=== PATIENT | male | born 1950 | race Caucasian/White ===

== ENCOUNTER 2022-03-24 10:19 | Inpatient (IN) | payer MEDICARE, OTHER, SELFPAY ==
[2022-03-24] VITALS (11 sets, daily range): BP systolic 86–132; BP diastolic 44–89; PULSE 64–77; RESP 16–20; TEMP 36.8–37.7; O2SAT 92–96; BMI 34.3; BMI 35.9
--- NOTE | 2022-03-24 11:22 | CRLHL7_ITS ---
For Patients: As a result of the Cures Act, medical imaging exams and procedure reports are released immediately into your electronic medical record. You may view this report before your referring provider. If you have questions, please contact your health care provider. INDICATION: FEVER, MULTIPLE MYELOMA TECHNIQUE: Chest 1 view COMPARISON: CT-PET 02/10/2022 FINDINGS: Chronic dependent vascular crowding related to bullous emphysema. No dense infiltrate. No pleural effusion. Mediastinum similar. Postop changes well shoulders. IMPRESSION: Emphysematous changes. No dense infiltrate. Dictated by Ajay Motta MD @ 03/24/2022 12:33:15 PM (Electronically Signed)
--- NOTE | 2022-03-24 11:29 | ED.GENADULT ---
HPI - General Adult General Time Seen by Provider: 11:29 Date Seen: 03/24/22 Chief complaint: Weakness Stated complaint: Cancer Patient, fever and pain Time Seen by Provider: 03/24/22 10:45 Source: patient, family ( is present), RN notes reviewed and old records reviewed Mode of arrival: ambulatory Limitations: no limitations History of Present Illness HPI narrative: Patient is a 72-year-old male accompanied by his to the ER for concern of a fever. 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 He follows with male Oncology. The plan is to have him on chemotherapy with 3-4 cycles over 3-4 months and subsequent auto stem cell transplantation at [place]. He is getting Velcade, Revlimid, dexamethasone. He has had 2 treatments so far, last 1 3 days ago. He started having fevers yesterday, highest was 102.8? F. His has been treating with Tylenol. He is more weak today. There has been no trauma, denies any cough or cold symptoms, denies any shortness of breath. His main complaint is right arm pain without any swelling, no trauma. The whole arm does hurt him. He is known to have arthritis in the hand and has had an injection in there sometime ago but the pain is beyond that joint in it hurts in the whole extremity. Denies any chest pain. He denies being short of breath but his feels he is more winded. 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 His appetite is maybe more diminished than usual but no nausea or vomiting, no GI or symptoms with his current fever. He does not have any chronic IV access. Onset (ago): day(s) Relieving factors: other (Tylenol has helped with fever control) Related Data Home Medications Medication Instructions Recorded Confirmed albuterol 90 mcg/actuation aerosol 1-2 spray INHALATION PRN 03/07/22 03/07/22 inhaler alirocumab 150 mg/mL subcutaneous 150 mg SUBCUT .Every 14 Days 03/07/22 03/24/22 pen injector cholecalciferol (vitamin D3) 100 100 mcg PO QDAY 03/07/22 03/07/22 mcg (4,000 unit) tablet hydrochlorothiazide 25 mg tablet 25 mg PO QAM 03/07/22 03/24/22 lisinopril 10 mg tablet 10 mg PO QDAY tab 03/07/22 03/24/22 potassium chloride 20 mEq 20 meq PO QDAY 03/07/22 03/07/22 tablet,extended release tiotropium bromide 18 mcg capsule 18 INHALATION DAILY 03/07/22 03/07/22 with inhalation device acetaminophen 500 mg tablet 1,000 mg PO BID PRN tab 03/08/22 03/24/22 (Tylenol Extra Strength) aspirin 81 mg tablet,delayed 81 mg PO 3XW tab 03/08/22 03/08/22 release (Adult Low Dose Aspirin) Previous Rx's Medication Instructions Recorded acyclovir 400 mg tablet 400 mg PO BID 30 Days #60 tab 03/08/22 aspirin 81 mg tablet,delayed 81 mg PO QDAY #90 tab 03/08/22 release (Enteric Coated Aspirin) calcium carbonate 600 mg-vitamin 1 cap PO BIDWMEAL #240 cap 03/08/22 D3 12.5 mcg (500 unit) capsule (Calcium 600 with Vitamin D3) dexamethasone 4 mg tablet 40 mg PO .COMPLEX #40 tab 03/08/22 famotidine 20 mg tablet (Pepcid) 20 mg PO BID 42 Days #84 tab 03/08/22 lenalidomide 25 mg capsule 25 mg PO QDAY 14 Days #14 cap 03/08/22 sulfamethoxazole 800 1 tab PO 3XW #30 tab 03/08/22 mg-trimethoprim 160 mg tablet (Bactrim DS) Allergies Allergy/AdvReac Type Severity Reaction Status Date / Time Clopidogrel Allergy Intermediate Hives Uncoded 03/08/22 09:16 Ezetimibe Allergy Unknown Unknown Uncoded 03/08/22 09:16 Atorvastatin AdvReac Mild Muscle Uncoded 03/08/22 09:16 aches Simvastatin AdvReac Mild muscle Uncoded 03/08/22 09:16 weakness Gemfibrozil AdvReac Unknown Unknown Uncoded 03/08/22 09:16 Rosuvastatin AdvReac Unknown Unknown Uncoded 03/08/22 09:16 Review of Systems Status of ROS: Reports: 10 or more systems reviewed and unremarkable except as noted in History and below [facility] Social History Smoking Status: Unknown if ever smoked Do you use any of these nicotine containing products: None Second hand tobacco smoke exposure: No How often do you have a drink containing alcohol: never AUDIT-C Alcohol total score: 0 Non-prescribed substance use: denies use service: No Exam Const: Vital Signs, click to edit/add: Vital Signs - 24 hr 03/24/22 10:51 03/24/22 12:53 03/24/22 13:00 Temperature 98.3 F Pulse Rate [Right Pulse Oximeter] 72 64 76 Respiratory Rate 18 16 16 Blood Pressure [Le ft Upper Arm] 90/53 L 87/44 L 116/69 Pulse Oximetry 92 94 95 03/24/22 14:00 03/24/22 14:30 03/24/22 15:00 Temperature Pulse Rate [Right Pulse Oximeter] 69 73 74 Respiratory Rate 16 16 16 Blood Pressure [Le ft Upper Arm] 131/89 86/76 L 116/87 Pulse Oximetry 96 94 96 Documenting provider has reviewed patient's vital signs: yes (Last blood pressure on March 08 was in the systolic range of 140) Common normals: no apparent distress, oriented x3, healthy appearing, alert and well nourished General appearance: cooperative, comfortable and well kempt Nutritional appearance: obese HENMT: Common normals: normocephalic, head/scalp atraumatic, hearing grossly normal bilaterally, external ears normal and oropharynx normal (But dry mucosa) Head and scalp: normocephalic and atraumatic External ear: external ears normal Eye: Common normals: PERRL, EOMs intact bilaterally, conjunctivae normal and no scleral icterus Conjunctiva: conjunctiva(e) normal Pupil: PERRL Neck & C-Spine: Common normals: full ROM, no lymphadenopathy, supple, no meningeal signs, no JVD and thyroid normal Thyroid: thyroid normal Chest: Common normals: inspection of chest normal and palpation of chest normal Resp: Common normals: normal respiratory effort, no retractions, no use of accessory muscles and clear to auscultation bilaterally Effort & inspection: able to speak in complete sentences Auscultation: clear to auscultation bilaterally Cardio: Common normals: no JVD, regular rate, regular rhythm, S1 normal heart sound, S2 normal heart sound, no gallops, no clicks and no murmurs Rate: regular rate Rhythm: regular rhythm Heart sounds: S1 normal and S2 normal GI: Common normals: Normal to inspection, nondistended, normoactive bowel sounds present, soft to palpation, non-tender, no hepatosplenomegaly and no masses Palpation: soft and no hepatosplenomegaly Other: Can see the 2 sites where he has had his injection of his chemotherapy. The 1st 1 is pink but not tender and not warm. The 1 on the left side is reportedly his new or site and has some discoloration of the abdominal wall with some pinkish in yellowish change but again not tender in neither site is warm. He states that they told him that this would be a normal reaction. Extremity: Common normals: normal to inspection, full ROM, normal capillary refill, no joint enlargement, no clubbing, cyanosis or edema, no calf tenderness and no pedal edema Other: Does have full range of motion of his right arm, do not note any swelling. Neuro: Common normals: oriented x3 Sensorium/orientation: alert Meningeal signs: no meningeal signs Psych: Appearance: well kempt Course Course Hospital Course: This is afebrile cancer patient an infectious etiology is 1st and foremost a concern. His blood pressure is lower at 90/40 range and sepsis needs to be considered here. I have ordered 1 L of normal saline and the full complement of blood work and evaluation for febrile chemo patient. He is not been neutropenic looking at his most recent labs but will update his CBC today. Obviously get COVID/influenza/RSV testing. We will do a portable chest x-ray. I will obtain an ultrasound of his right upper extremity to rule out development of a DVT. Other considerations for the right arm pain would be atypical presentation of myocardial infarction. Will have an EKG and troponin to obtain. This would not explain the fever but could be concomitant burden of disease with stress to the cardiac system from infection. Reevaluation(s) Reevaluation #1: The patient had told nursing staff that if she needed hospitalization he would like to be transferred her [place]. I did contact [facility] at 1:41 p.m. and they were on divert for med surge beds, Oncology and Hematology beds. The report to me that they do not have capacity for him. I have talked to the patient about this. I do believe he is early sepsis and have subsequently ordered vancomycin. We will get the vancomycin going and order cefepime after that. After 2 L of IV fluids with normal saline I am happy to report that his blood pressure was 116 systolic when I was in with him. I have subsequently ordered another 500 mL normal saline and we will re-evaluate at that point. I calculate that he needs probably about 2400 mL of fluid. He is hungry and they are okay if they need to stay here. We are still awaiting his urinalysis results as it had just recently been sent to the lab. I did subsequently talk to our hospitalist shortly after 3:00 p.m., he is down here to accept admission of the patient. Time: 13:41 Vital Signs Vital signs: Initial Vital Signs Temperature 98.3 F 03/24/22 10:51 Temperature Source Temporal Artery Scan 03/24/22 10:51 Pulse Rate 72 03/24/22 10:51 Respiratory Rate 18 03/24/22 10:51 Blood Pressure 90/53 L 03/24/22 10:51 Blood Pressure Mean 65 03/24/22 10:51 Blood Pressure Position Sitting 03/24/22 10:51 Pulse Oximetry 92 03/24/22 10:51 Oxygen Delivery Method 03/24/22 10:51 Vital Signs Temperature 98.3 F 03/24/22 10:51 Pulse Rate 72 03/24/22 10:51 Respiratory Rate 18 03/24/22 10:51 Blood Pressure 90/53 L 03/24/22 10:51 Pulse Oximetry 92 03/24/22 10:51 Temperature 98.3 F 03/24/22 10:51 Pulse Rate 74 03/24/22 15:00 Respiratory Rate 16 03/24/22 15:00 Blood Pressure 116/87 03/24/22 15:00 Pulse Oximetry 96 03/24/22 15:00 Medical Decision Making Lab Data Lab results reviewed: Yes I reviewed the patient's lab results Labs: Lab Results 03/24/22 03/24/22 03/24/22 Range/Units 11:23 11:40 11:40 WBC 4.48 L (4.50-11.00) K/uL RBC 4.84 (4.30-5.90) m/uL Hgb 15.3 (13.5-17.5) gm/dL Hct 46.6 (37.0-53.0) % MCV 96 (80-100) fL MCH 32 (26-34) pg MCHC 33 (32-36) gm/dL RDW Coeff of Payton 15.5 (11.5-15.5) % Plt Count 103 L (140-440) K/uL Neut % (Auto) 92.4 H (42.0-72.0) % Lymph % (Auto) 4.0 L (20-44) % Ellsworth % (Auto) 1.8 (0.0-11.0) % Eos % (Auto) 0.0 (0.0-7.0) % Baso % (Auto) 0.0 (0.0-3.0) % Neut # (Auto) 4.10 (1.7-7.0) K/uL Lymph # (Auto) 0.20 L (0.90-2.90) K/uL Ellsworth # (Auto) 0.10 (0.00-0.90) K/UL Eos # (Auto) 0.00 (0.00-0.50) K/uL Baso # (Auto) 0.00 (0.00-0.30) K/uL Abs Immat Gran (auto) 0.08 (0.00-0.30) K/uL Diff Slide Review Acceptable Review (Acceptable) Sodium 134 L (135-149) mmol/L Potassium 4.4 (3.6-5.1) mmol/L Chloride 105 (96-114) mmol/L Carbon Dioxide 15 L (20-32) mmol/L BUN 39 H (7-30) mg/dL Creatinine 1.5 (0.5-1.5) mg/dL Estimated Creat Clear 37.82 Estimated GFR 49 ml/min Glucose 113 (60-115) mg/dL Lactate (0.5-1.9) mmol/L Calcium 8.4 (8.4-10.6) mg/dL Total Bilirubin 0.5 (0.1-1.5) mg/dL AST 35 (12-35) U/L ALT 28 (4-50) U/L Alkaline Phosphatase 72 (40-150) U/L Troponin I (0.01-0.04) ng/mL Total Protein 9.3 H (6.0-8.3) g/dL Albumin 3.5 (3.3-5.0) g/dL Urine Color (Yellow) Urine Appearance (Clear) Urine pH (5.0-8.5) Ur Specific Mazama (1.000-1.030) Urine Protein (Negative) Urine Glucose (UA) (Negative) Urine Ketones (Negative) Urine Blood (Negative) Urine Nitrite (Negative) Urine Bilirubin (Negative) Urine Urobilinogen (0.2-1.0) Ur Leukocyte Esterase (Negative) Urine RBC (0-2) Urine WBC (0-5) Ur Squamous Epith Cells (None-Few) Urine Bacteria (None) SARS-CoV-2 (PCR) Negative SARS-CoV-2 (Negative) Influenza Type A (PCR) Negative PCR FLU A (Negative) Influenza Type B (PCR) Negative PCR FLU B (Negative) RSV (PCR) Negative PCR RSV (Negative) 03/24/22 03/24/22 03/24/22 Range/Units 11:40 11:40 13:30 WBC (4.50-11.00) K/uL RBC (4.30-5.90) m/uL Hgb (13.5-17.5) gm/dL Hct (37.0-53.0) % MCV (80-100) fL MCH (26-34) pg MCHC (32-36) gm/dL RDW Coeff of Payton (11.5-15.5) % Plt Count (140-440) K/uL Neut % (Auto) (42.0-72.0) % Lymph % (Auto) (20-44) % Ellsworth % (Auto) (0.0-11.0) % Eos % (Auto) (0.0-7.0) % Baso % (Auto) (0.0-3.0) % Neut # (Auto) (1.7-7.0) K/uL Lymph # (Auto) (0.90-2.90) K/uL Ellsworth # (Auto) (0.00-0.90) K/UL Eos # (Auto) (0.00-0.50) K/uL Baso # (Auto) (0.00-0.30) K/uL Abs Immat Gran (auto) (0.00-0.30) K/uL Diff Slide Review (Acceptable) Sodium (135-149) mmol/L Potassium (3.6-5.1) mmol/L Chloride (96-114) mmol/L Carbon Dioxide (20-32) mmol/L BUN (7-30) mg/dL Creatinine (0.5-1.5) mg/dL Estimated Creat Clear Estimated GFR ml/min Glucose (60-115) mg/dL Lactate 1.5 (0.5-1.9) mmol/L Calcium (8.4-10.6) mg/dL Total Bilirubin (0.1-1.5) mg/dL AST (12-35) U/L ALT (4-50) U/L Alkaline Phosphatase (40-150) U/L Troponin I 0.03 (0.01-0.04) ng/mL Total Protein (6.0-8.3) g/dL Albumin (3.3-5.0) g/dL Urine Color Shira A (Yellow) Urine Appearance Clear (Clear) Urine pH 5.5 (5.0-8.5) Ur Specific [place] 1.020 (1.000-1.030) Urine Protein 1+ A (Negative) Urine Glucose (UA) Negative (Negative) Urine Ketones Negative (Negative) Urine Blood 3+ A (Negative) Urine Nitrite Negative (Negative) Urine Bilirubin Negative (Negative) Urine Urobilinogen 0.2 (0.2-1.0) Ur Leukocyte Esterase Negative (Negative) Urine RBC >100 A (0-2) Urine WBC 0-2 (0-5) Ur Squamous Epith Cells None (None-Few) Urine Bacteria None (None) SARS-CoV-2 (PCR) (Negative) Influenza Type A (PCR) (Negative) Influenza Type B (PCR) (Negative) RSV (PCR) (Negative) Imaging Data Chest x-ray: Attestation: I have reviewed the pertinent imaging results. Radiologist's impression: Patient: BENJAMIN CHENEY Facility:?[facility] Patient ID:?[id number] Site Patient ID:?[id number] Site :?[id number] Study:?XRay Chest PORTABLE 1 VIEW-03/24/2022 11:57:37 AM Ordering Physician:Nikki Heart Final Report: INDICATION: FEVER, MULTIPLE MYELOMA TECHNIQUE: Chest 1 view COMPARISON: CT-PET 02/10/2022 FINDINGS: Chronic dependent vascular crowding related to bullous emphysema. No dense infiltrate. No pleural effusion. Mediastinum similar. Postop changes well shoulders. IMPRESSION: Emphysematous changes. No dense infiltrate. Dictated by Ajay Motta MD @ 03/24/2022 12:33:15 PM (Electronic Signature) Venous US: Attestation: I have reviewed the pertinent imaging results. Radiologist's impression: Patient: BENJAMIN CHENEY Facility:?[facility] Patient ID:?[id number] Site Patient ID:?[id number]. Site :?[id number] Study:?US Extremity Right -03/24/2022 12:34:27 PM Ordering Physician:Nikki Heart Final Report: INDICATION: RUE PAIN, MALIGNANCY COMPARISON: None. TECHNIQUE: Right upper extremity and neck venous ultrasound performed as well as ultrasound of left internal jugular vein including weldon scale/2D, color Doppler, and spectral Doppler imaging including spectral waveform analysis. FINDINGS: The internal jugular, innominate, subclavian, axillary, basilic, cephalic, and brachial veins were patent and negative for thrombus. IMPRESSION: No evidence for DVT in the right upper extremity and neck venous system. Dictated by Ajay Motta MD @ 03/24/2022 12:38:11 PM (Electronic Signature) ECG Data Attestation: I personally reviewed and interpreted this ECG as follows: (Sinus rhythm, 64 beats per minute. The QT corrected 497 milliseconds.) Critical Care Time Critical Care Time Critical Care Time: No Discharge Plan Discharge Clinical Impression: Fever, Plasma cell neoplasm, Sepsis Patient Disposition: Admitted As Inpatient Condition: Improved Prescriptions: No Action alirocumab 150 mg/mL pen injector 150 mg subcut .Every 14 Days 0RF tiotropium bromide 18 mcg capsule, w/inhalation device 18 inhalation DAILY 0RF albuterol 90 mcg/actuation aerosol 1-2 spray inhalation PRN0RF lisinopril 10 mg tablet 10 mg PO QDAY 0RF hydrochlorothiazide 25 mg tablet 25 mg PO QAM 0RF cholecalciferol (vitamin D3) 100 mcg (4,000 unit) tablet 100 mcg PO QDAY 0RF potassium chloride 20 mEq tablet extended release 20 meq PO QDAY 0RF Label Comments: take with meals acetaminophen [Tylenol Extra Strength] 500 mg tablet 1,000 mg PO BID PRN0RF aspirin [Adult Low Dose Aspirin] 81 mg tablet,delayed release (DR/EC) 81 mg PO 3XW 0RF acyclovir 400 mg tablet 400 mg PO BID 30 Days Qty: 60 3RF aspirin [Enteric Coated Aspirin] 81 mg tablet,delayed release (DR/EC) 81 mg PO QDAY Qty: 90 1RF calcium carbonate-vitamin D3 [Calcium 600 with Vitamin D3] 600 mg-12.5 mcg (500 unit) capsule 1 cap PO BIDWMEAL Qty: 240 1RF sulfamethoxazole-trimethoprim [Bactrim DS] 800-160 mg tablet 1 tab PO 3XW Qty: 30 1RF dexamethasone 4 mg tablet 40 mg PO .COMPLEX Qty: 40 3RF Rx Instructions: 40 mg PO weekly; famotidine [Pepcid] 20 mg tablet 20 mg PO BID 42 Days Qty: 84 2RF lenalidomide 25 mg capsule 25 mg PO QDAY 14 Days Qty: 14 1RF Rx Instructions: Take 1 capsule daily, D1-D14, and 1 week off, in a 21 day cycle; swallow whole with glass of water; do not open, crush, chew , break, or dissolve. Follow Up/Referrals: NIKHIL DARLING DO [Primary Care Provider] -
--- NOTE | 2022-03-24 11:38 | CRLHL7_ITS ---
For Patients: As a result of the Century Cures Act, medical imaging exams and procedure reports are released immediately into your electronic medical record. You may view this report before your referring provider. If you have questions, please contact your health care provider. INDICATION: RUE PAIN, MALIGNANCY COMPARISON: None. TECHNIQUE: Right upper extremity and neck venous ultrasound performed as well as ultrasound of left internal jugular vein including weldon scale/2D, color Doppler, and spectral Doppler imaging including spectral waveform analysis. FINDINGS: The internal jugular, innominate, subclavian, axillary, basilic, cephalic, and brachial veins were patent and negative for thrombus. IMPRESSION: No evidence for DVT in the right upper extremity and neck venous system. Dictated by Ajay Motta MD @ 03/24/2022 12:38:11 PM (Electronically Signed)
[2022-03-24 11:50] LABS: Lactate* 1.5 mmol/L (0.5-1.9)
[2022-03-24 12:00] LABS: Hematocrit 46.6 % (37.0-53.0); Hemoglobin* 15.3 gm/dL (13.5-17.5); Immature Granulocytes Abs Auto 0.08 K/uL (0.00-0.30); Mean Corpuscular HGB Conc 33 gm/dL (32-36); Mean Corpuscular Hemoglobin 32 pg (26-34); Mean Corpuscular Volume 96 fL (80-100); Monocytes Percent Auto 1.8 % (0.0-11.0); Neutrophils Percent Auto 92.4 % (42.0-72.0); Platelet Count* 103 K/uL (140-440); RDW Coefficient of Variation % 15.5 % (11.5-15.5); Red Blood Count 4.84 m/uL (4.30-5.90); White Blood Count* 4.48 K/uL (4.50-11.00)
[2022-03-24 12:27] LABS: Slide Review Reflex Yes; Troponin I* 0.03 ng/mL (0.01-0.04)
[2022-03-24 12:31] LABS: Slide Review Acceptable Review (Acceptable)
[2022-03-24 12:48] LABS: PCR FLU A Negative PCR FLU A (Negative); PCR FLU B Negative PCR FLU B (Negative); PCR RSV Negative PCR RSV (Negative)
[2022-03-24] MEDS: 0.9 % SODIUM CHLORIDE 1000 ml 1,000 ML IV ×2 (12:50→13:30)
[2022-03-24 12:53] LABS: SARS PCR* Negative SARS-CoV-2 (Negative)
[2022-03-24 13:14] LABS: Albumin* 3.5 g/dL (3.3-5.0); Chloride* 105 mmol/L (96-114)
[2022-03-24 13:15] LABS: Potassium* 4.4 mmol/L (3.6-5.1); Sodium* 134 mmol/L (135-149)
[2022-03-24 13:17] LABS: Alkaline Phosphatase* 72 U/L (40-150); Aspartate Amino Transferase* 35 U/L (12-35); Bilirubin Total* 0.5 mg/dL (0.1-1.5); Blood Urea Nitrogen* 39 mg/dL (7-30); Carbon Dioxide* 15 mmol/L (20-32); Creatinine* 1.5 mg/dL (0.5-1.5); Est. Creatinine Clearance* 37.82; Estimated Glomerular Filt Rate 49 ml/min; Glucose* 113 mg/dL (60-115); Total Protein* 9.3 g/dL (6.0-8.3)
[2022-03-24 13:18] LABS: Alanine Aminotransferase* 28 U/L (4-50); Calcium* 8.4 mg/dL (8.4-10.6)
[2022-03-24 13:45] LABS: Appearance Urine Clear (Clear); Bilirubin Urine Negative (Negative); Blood Urine 3+ (Negative); Color Urine Amber (Yellow); Glucose Urine Negative (Negative); Ketones Urine Negative (Negative); Leukocyte Esterase Urine Negative (Negative); Nitrite Urine Negative (Negative); Protein Urine 1+ (Negative); Urobilinogen Urine 0.2 (0.2-1.0); pH Urine 5.5 (5.0-8.5)
[2022-03-24 14:00] LABS: RBC Urine >100 (0-2); WBC Urine 0-2 (0-5)
[2022-03-24] MEDS: 0.9 % SODIUM CHLORIDE 500 ML 500 ML IV (14:30)
--- NOTE | 2022-03-24 16:21 | W.PC.EDHO ---
Primary Language: Preferred Language: Orientation Status: [X] Alert & Oriented [] Slight Confusion [] Known Dx Dementia Transfers By: [X] Assist of 1 [] Assist of 2 [] Lift Active Medications Discontinued Medications Generic Name Dose Route Start Last Admin Trade Name Mike PRN Reason Stop Dose Admin Sodium Chloride 1,000 mls @ 1,000 mls/hr 03/24/22 11:24 03/24/22 13:44 0.9 % Sodium Chloride 1000 Ml IV 03/24/22 12:23 Infused .Q1H GENARO Infusion Sodium Chloride 1,000 mls @ 1,000 mls/hr 03/24/22 12:56 03/24/22 14:31 0.9 % Sodium Chloride 1000 Ml IV 03/24/22 13:55 Infused .Q1H GENARO Infusion Sodium Chloride 500 mls @ 500 mls/hr 03/24/22 13:47 03/24/22 14:30 0.9 % Sodium Chloride 500 Ml IV 03/24/22 14:46 500 mls/hr .Q1H ONE Administration Vancomycin HCl 1,750 mg/ 517.5 mls @ 258.75 mls/hr 03/24/22 13:50 03/24/22 14:29 Sodium Chloride IVPB 03/24/22 13:51 258.75 mls/hr ONCE ONE Administration Protocol Description of Symptoms ED Triage Present Problem diagnosed with multiple myloma. receiving Description injections for chemo. last dose 3 days ago. c/o weakness and fever at home. c/o pain in right arm , concern of blood clot Pain Pain Description [Right Arm] Dull, Achy Pain Intensity 5 Pain Intensity 5 Pain Intensity 5 Pain Scale Used Numeric (1 - 10) Pain Scale Used Numeric (1 - 10) Pain Scale Used Numeric (1 - 10) Pain Scale Used Numeric (1 - 10) Oxygen Administration Pulse Oximetry 96 Pulse Oximetry 94 Pulse Oximetry 96 Pulse Oximetry 95 Pulse Oximetry 94 Pulse Oximetry 92 Oxygen Delivery Method Room Air Oxygen Delivery Method Room Air Oxygen Delivery Method Room Air Oxygen Delivery Method Room Air Oxygen Delivery Method Room Air Oxygen Delivery Method Room Air Cardiac Monitoring EKG Method 12 Lead
[2022-03-24] MEDS: CEFEPIME HCL 2 GM in 0.9 % SODIUM CHLORIDE Mini-bag 100 ML IVPB (16:42)
--- NOTE | 2022-03-24 17:01 | P.IMHP_ITS ---
Hospitalist- H&P: HPI History of Present Illness Time Seen by Provider: 15:30 Date Seen: 03/24/22 Chief complaint: Cancer Patient, fever and pain Narrative: Thomas Simental is a 72 year old man with a new diagnosis of plasma cell neoplasm, IgA lambda, high risk, gain of chromosome 1q, complex cytogenetics, stage III, with 70% bone marrow involvement with plasma cell neoplasm per bone marrow aspirate and biopsy in February of 2022. Working with [facility] in Oncology. Started on Velcade, Revlimid, dexamethasone, in a 21 day cycle, add Velcade 1.3 milligrams/meter squared on day 1-4-8-11. Revlimid 25 mg orally days 1 through 14. Dexamethasone 40 mg weekly. Receive the Velcade on days 1 and 4. Day 4 was 3 days ago. Started having fevers yesterday with temperature as high as 102.8? F. His condition is not improving today. Has felt hot and then warm. Denies diaphoresis or rigors. Came in for further assessment. Notes a sense of right arm discomfort right fingers uncomfortable. Also has back pain. He ascribes the back pain to his underlying scoliosis which he has had for years. He is not sure why the right arm and hand are so uncomfortable. Ultrasound in emergency department today did not demonstrate the presence of a deep venous thrombosis. Denies any other focal symptoms. On questioning him further he specifically denies cough or shortness of breath. Denies chest heaviness, pressure, tightness, or pain. Denies dyspepsia, dysphagia, or odynophagia. Denies nausea or vomiting. Acknowledges decreased appetite. Denies constipation or diarrhea. Denies blood loss of any sort. On the other hand he states that his urine was more morgan yesterday than usual. Reportedly urine is clearing now. Denies dysuria, urgency, or frequency. When I ask him about any new rashes he describes redness on his abdominal wall at the site of the injection of the Velcade 3 days ago. He states it is nontender. He states he had a similar red reaction when he received his 1st injection 1 week ago on the left side of the abdomen. No recent trauma or injury. No recent travel. No recent COVID. Review of Systems Status of ROS: Reports: 6 or more systems reviewed and unremarkable except as noted in History and below [facility] Medical History Bright red blood per rectum Cellulitis Chronic obstructive pulmonary disease Coronary artery disease Diverticulosis of large intestine with hemorrhage Hyperlipidemia Hypertension Infected sebaceous cyst Lower gastrointestinal hemorrhage Multiple myeloma Obesity with body mass index (BMI) of 30.0 to 39.9 Obstructive sleep apnea syndrome Osteoarthritis Personal history of colonic polyps (01/21/09) Plasma cell neoplasm Statin intolerance (12/05/18) Surgical History Status post total shoulder replacement Social History Highest level of school completed/degree received: high school graduate Smoking Status: Former smoker Do you use any of these nicotine containing products: None Second hand tobacco smoke exposure: No How often do you have a drink containing alcohol: never AUDIT-C Alcohol total score: 0 Non-prescribed substance use: denies use Caffeine: Yes (diet coke) service: No Meds Home Medications and Allergies Home Medications Medication Instructions Recorded Confirmed Type albuterol 90 mcg/actuation aerosol 2 spray INHALATION Q4H PRN 03/07/22 03/24/22 History inhaler alirocumab 150 mg/mL subcutaneous 150 mg SUBCUT .Every 14 Days 03/07/22 03/24/22 History pen injector cholecalciferol (vitamin D3) 100 100 mcg PO QDAY 03/07/22 03/24/22 History mcg (4,000 unit) tablet hydrochlorothiazide 25 mg tablet 25 mg PO QAM 03/07/22 03/24/22 History lisinopril 10 mg tablet 10 mg PO QDAY tab 03/07/22 03/24/22 History potassium chloride 20 mEq 20 meq PO QDAY 03/07/22 03/24/22 History tablet,extended release tiotropium bromide 18 mcg capsule 1 cap INHALATION DAILY 03/07/22 03/24/22 History with inhalation device acetaminophen 500 mg tablet 1,000 mg PO BID PRN tab 03/08/22 03/24/22 History (Tylenol Extra Strength) nitroglycerin 0.4 mg sublingual 0.4 mg SUBLINGUAL Q5M PRN 03/24/22 03/24/22 History tablet Home Medication Comments: Also on Revlimid 25 mg daily, days 1 through 14, currently on day 7. Allergies Allergy/AdvReac Type Severity Reaction Status Date / Time atorvastatin AdvReac Verified 03/24/22 16:58 Clopidogrel Allergy Intermediate Hives Uncoded 03/08/22 09:16 Ezetimibe Allergy Unknown Unknown Uncoded 03/08/22 09:16 Atorvastatin AdvReac Mild Muscle Uncoded 03/08/22 09:16 aches Simvastatin AdvReac Mild muscle Uncoded 03/08/22 09:16 weakness Gemfibrozil AdvReac Unknown Unknown Uncoded 03/08/22 09:16 Rosuvastatin AdvReac Unknown Unknown Uncoded 03/08/22 09:16 Exam Narrative: Exam Narrative: Somewhat anxious. No acute distress. Concerned. Articulate and cooperative. Mild to moderate hard of hearing bilaterally, symmetric. Alert, oriented to self, place, time, situation. Mood and affect are congruent. External auditory canals are clear. No icterus or conjunctival injection. Pupils equally round and reactive to light and accommodation. Extraocular muscles intact. Midline nasal septum. Normal nasal mucosa. Dentition fair repair. No obvious lesions. Oropharynx otherwise benign. Midline trachea. Normal thyroid. Neck supple. No JVD, hepatojugular reflux, or carotid bruits. No lymphadenopathy in the pre or postauricular chains, anterior or posterior cervical chains, supra or infraclavicular fossa, submental or submandibular fossa, or axilla bilaterally. Lungs clear to auscultation, without wheezing, rhonchi, or rales. Heart tones distant but with regular rhythm, normal S1-S2, without murmur, gallop, or rub. PMI not laterally displaced. Does not have CVA tenderness per se. Abdomen with active bowel sounds, soft, nontender. Skin remarkable for the fact that is intact on the 1 hand, on the other hand he has localized region of intense redness and warmth on the abdominal wall adjacent to the umbilicus, supposedly the site of injection of the Velcade that he received 3 days ago. On the opposite side of the abdomen he has some discoloration, presumably where he received the 1st injection of the Velcade [address] [place] ago. The area on the left side of the abdomen is not red hot at all. Temperature of area on the left side of the abdomen is exactly the same as adjacent skin. No other areas of skin involvement. Independent transfer, station, and gait. No tremor, asterixis, or ataxia. No focal motor neurologic deficits including upper extremity on the right. Full range of motion of all joints in upper and lower extremities. Const: Vital Signs, click to edit/add: Vital Signs - 24 hr 03/24/22 10:51 03/24/22 12:53 03/24/22 13:00 Temperature 98.3 F Pulse Rate [Right Pulse Oximeter] 72 64 76 Respiratory Rate 18 16 16 Blood Pressure [Le ft Upper Arm] 90/53 L 87/44 L 116/69 Pulse Oximetry 92 94 95 03/24/22 14:00 03/24/22 14:30 03/24/22 15:00 Temperature Pulse Rate [Right Pulse Oximeter] 69 73 74 Respiratory Rate 16 16 16 Blood Pressure [Le ft Upper Arm] 131/89 86/76 L 116/87 Pulse Oximetry 96 94 96 03/24/22 16:57 Temperature 99.6 F Pulse Rate [Right Pulse Oximeter] Respiratory Rate Blood Pressure [Le ft Upper Arm] Pulse Oximetry Hospitalist - H&P: Result Labs Labs: Short CBC 03/24/22 Range/Units 11:40 WBC 4.48 L (4.50-11.00) K/uL Hgb 15.3 (13.5-17.5) gm/dL Hct 46.6 (37.0-53.0) % Plt Count 103 L (140-440) K/uL BMP 03/24/22 11:40 Sodium 134 L Potassium 4.4 Chloride 105 Carbon Dioxide 15 L BUN 39 H Creatinine 1.5 Glucose 113 Calcium 8.4 Cardiac Enzymes 03/24/22 Range/Units 11:40 Troponin I 0.03 (0.01-0.04) ng/mL Liver Function 03/24/22 Range/Units 11:40 Total Bilirubin 0.5 (0.1-1.5) mg/dL AST 35 (12-35) U/L ALT 28 (4-50) U/L Alkaline Phosphatase 72 (40-150) U/L Albumin 3.5 (3.3-5.0) g/dL Urine 03/24/22 Range/Units 13:30 Urine Color [place] A (Yellow) Urine Appearance Clear (Clear) Urine pH 5.5 (5.0-8.5) Ur Specific [place] 1.020 (1.000-1.030) Urine Protein 1+ A (Negative) Urine Glucose (UA) Negative (Negative) Imaging Venous US: Attestation: I have reviewed the pertinent imaging results. Radiologist's impression: Right upper extremity negative for deep venous thrombosis. Chest x-ray: Attestation: I have reviewed the pertinent imaging results. Radiologist's impression: No acute abnormalities. Chronic changes consistent with COPD. Assessment and Plan Assessment and plan (1) Fever: Status: Acute Assessment and Plan: Worrisome in a patient with known plasma cell neoplasm who was receiving chemotherapy. (2) Sepsis: Status: Acute Assessment and Plan: Normal lactate. Blood cultures and urine cultures obtained. (3) Cellulitis, abdominal wall: Status: Acute Assessment and Plan: Right side of the abdomen, a adjacent to umbilicus. Site of injection of Velcade 3 days ago. Initiate cefepime and vancomycin. (4) Hematuria: Status: Acute Assessment and Plan: According to family this is improved today compared to yesterday. Given patient's sepsis presentation, I will obtain a CT scan of the abdomen and pelvis without contrast. (5) Dehydration: Status: Acute Assessment and Plan: Responding to IV fluid challenges. Component 10 you to monitor labs and vital signs. (6) Plasma cell neoplasm: Problem comment: IgA Lambda, high risk, gain of chromosome 1q, complex cytogenetics, stage III, 70% bone marrow involvement w/ plasma cell neoplasm (02/2022) Status: Acute Assessment and Plan: Will hold the Revlimid for now. (7) Chronic obstructive pulmonary disease: Status: Acute Assessment and Plan: Continue with supportive efforts. (8) Leukopenia: Status: Acute Assessment and Plan: Monitor closely. (9) Thrombocytopenia: Status: Acute Assessment and Plan: Monitor closely. Plan 1. Reviewed impression with patient and . Answered their questions. 2. Admit as inpatient to the hospital. 3. [place] his request for full resuscitation in the event of cardiopulmonary demise. He designates his as his power of criminal attorney for health should that be required.
--- NOTE | 2022-03-24 17:30 | CRLHL7_ITS ---
For Patients: As a result of the Century Cures Act, medical imaging exams and procedure reports are released immediately into your electronic medical record. You may view this report before your referring provider. If you have questions, please contact your health care provider. INDICATION: Fever, back pain, hematuria. TECHNIQUE: CT chest, abdomen, and pelvis without contrast. COMPARISON: PET-CT 02/10/2022. CT abdomen pelvis 02/06/2021. FINDINGS: CHEST: Lungs and pleura: Upper lung predominant emphysema, including paraseptal emphysema with bulla on the left. Minimal dependent atelectasis. Lungs are otherwise clear. No suspicious nodules or infiltrates. No pleural effusions, pleural thickening, or pneumothorax. Cardiovascular structures: Heart size is normal. Thoracic aorta and main pulmonary artery are normal in caliber. Coronary artery calcifications. Mediastinum and rosie: No mass or adenopathy. Chest wall and axilla: No mass or adenopathy. Bones: Partially visualized bilateral shoulder arthroplasty. Thoracic spine degenerative changes. ABDOMEN AND PELVIS: Liver: Unremarkable. Gallbladder and bile ducts: Unremarkable. Spleen: Unremarkable. Adrenal glands: Unremarkable. Pancreas: Unremarkable. Kidneys: Unremarkable. GI tract: Diverticulosis without evidence of diverticulitis. Small and large bowel are normal caliber. No evidence of focal wall thickening or obstruction. Lymph nodes: Unremarkable. Vascular structures: Moderate scattered atherosclerotic calcifications. Fusiform aneurysmal dilatation of the bilateral common iliac arteries measuring 2.1 cm on the right and 2.2 cm on the left. Miscellaneous: Unremarkable. No free air or significant free fluid. Pelvic organs: Possible megaly. Bones: Lumbar spine degenerative changes. IMPRESSION: 1. No acute abnormality of the chest, abdomen, or pelvis. 2. Diverticulosis well evidence diverticulitis. 3. Bilateral common iliac artery aneurysms. Please note that all CT scans at this facility use dose modulation, iterative reconstruction, and/or weight-based dosing when appropriate to reduce radiation dose to as low as reasonably achievable. Dictated by Chris Arthur MD @ 03/24/2022 8:58:05 PM (Electronically Signed)
[2022-03-24] MEDS: ACETAMINOPHEN 325 MG TABLET 650 MG PO (17:51)
--- NOTE | 2022-03-24 19:03 | PC.NURSE ---
Pt SBA with ambulation to BR. Pt denies SOB but displays SOB with ambulation. Denies chest pain, N/V. Tolerates regular diet. Scheduled Tylenol per eMAR for elevated temp. Pt c/o sore/achy right hand. Ice given per request. Pt states Doctors have not addressed this matter. Ultrasound was done in ED of hand shows no DVT, pt and explained this by Dr. Celeste and then again by health science writer.
[2022-03-24] MEDS: HYDROmorphone 2 MG TABLET PO (21:12)
[2022-03-24] MEDS: FAMOTIDINE 20 MG TABLET PO (21:12)
[2022-03-24] MEDS: ACYCLOVIR 200 MG CAPSULE 400 MG PO (21:12)
[2022-03-24] MEDS: SODIUM CHLORIDE 0.9 % (FLUSH) 10 ML SYRINGE 5 ML IVF (21:13)
[2022-03-25] VITALS (9 sets, daily range): BP systolic 109–150; BP diastolic 57–81; PULSE 60–84; RESP 16–20; TEMP 36.7–37.6; O2SAT 94–97
[2022-03-25] MEDS: CEFEPIME HCL 2 GM in 0.9 % SODIUM CHLORIDE Mini-bag 100 ML IVPB ×3 (00:24→18:27)
[2022-03-25] MEDS: ACETAMINOPHEN 325 MG TABLET 650 MG PO ×5 (00:25→21:01)
[2022-03-25] MEDS: HYDROmorphone 2 MG TABLET PO ×4 (05:35→21:01)
--- NOTE | 2022-03-25 06:30 | PC.NURSE ---
Nurse note : Pt A&O. T-max 99.6F, pt off and on hot and cold. CPAP on overnight, room air otherwise with oxygen saturations >90%. PRN Dilaudid given x2 for pt c/o right hand pain, pt reported relief. Ice pack to right hand. Pt up with 1 assist, appears SOB but denies feeling SOB. Denies SOB, CP, and N/V.
[2022-03-25] MEDS: POTASSIUM CHLORIDE 10 MEQ CAPSULE ER 20 MEQ PO (08:03)
[2022-03-25] MEDS: ACYCLOVIR 200 MG CAPSULE 400 MG PO ×2 (09:14→21:01)
[2022-03-25] MEDS: SENNOSIDES/DOCUSATE TABLET 1 TAB PO (09:14)
[2022-03-25] MEDS: hydroCHLOROthiazide 25 MG TABLET PO (09:14)
[2022-03-25] MEDS: lisinopriL 10 MG TABLET PO (09:14)
[2022-03-25] MEDS: FAMOTIDINE 20 MG TABLET PO ×2 (09:15→21:01)
[2022-03-25] MEDS: SODIUM CHLORIDE 0.9 % (FLUSH) 10 ML SYRINGE 5 ML IVF ×2 (09:16→21:01)
--- NOTE | 2022-03-25 09:28 | NUTR.NU ---
RDN with MD consult related to plasma cell neoplasm, chemo, and preparing for bone marrow transplant. RDN visit with patient whom reports meals have been good. He was able to eat breakfast this morning without issues. He started chemotherapy treatment in February 2022. He denies recent weight loss, however does report a decreased appetite recently. He still manages to eat 3 meals daily without issues. Weight records: 03/08/22 201 lbs; 03/17/22 203lbs; 03/24/22 209lbs. Current height 64 inches; BMI overweight at 35.9 kg/m2. No nutrition interventions or diet education at this time. RDN informed patient if he does have any questions or concerns, to let staff know. RDN can also visit with patient in the future at [facility] during treatment if patient wishes. RDN will continue to monitor and follow-up prn.
--- NOTE | 2022-03-25 09:47 | PM.IMPN1 ---
Progress Note: A&P Assessment and plan (1) Fever: Status: Acute Assessment and Plan: Patient is on chemotherapy but is not significantly neutropenic. We will continue vancomycin and cefepime while we await cultures. Will continue to trend his vital signs. (2) Sepsis: Status: Acute Assessment and Plan: Unclear whether the patient truly has sepsis but we are treating as above. (3) Cellulitis, abdominal wall: Status: Acute Assessment and Plan: Redness is mildly improved (4) Hematuria: Status: Acute Assessment and Plan: No major complaints today. (5) Dehydration: Status: Acute Assessment and Plan: Creatinine has gone from 1.1-1.5 will continue IV hydration. (6) Plasma cell neoplasm: Problem details: IgA Lambda, high risk, gain of chromosome 1q, complex cytogenetics, stage III, 70% bone marrow involvement w/ plasma cell neoplasm (02/2022) Status: Acute Assessment and Plan: Will continue with (7) Chronic obstructive pulmonary disease: Status: Acute Assessment and Plan: Respiratory status is stable. (8) Leukopenia: Status: Acute Assessment and Plan: Daily CBCs. (9) Thrombocytopenia: Status: Acute Plan Daily CBC. Subjective Time Seen by Provider: 09:47 Date Seen: 03/25/22 Interval history: Patient is a 72-year-old gentleman with plasma cell neoplasm being treated with Revlimid, Velcad and Dexamethasone who presented with fevers. He has noted have a localized area of redness on his abdomen. He was started on cefepime plus vancomycin after suitable cultures had been obtained. Patient has swelling of his right hand with no recent injuries. His fevers have improved overnight his cultures are pending. The duplex of the right upper extremity shows no signs of DVT. He is still feeling weak and fatigued but has no other major complaints. Exam Narrative: Exam Narrative: EXAM GENERAL: Patient appears comfortable and well. EYES: No scleral icterus. LYMPH: No supraclavicular or cervical lymphadenopathy. SKIN: Visible skin seen during exam normal or with benign process only. EXT: No dependent lower extremity pedal edema. Mild stiffness and bogginess of the right hand. HEART: Regular rate and rhythm with no murmurs, rubs, or gallops. LUNGS: Clear to auscultation bilaterally with no crackles or wheezes. ABD: Soft, non tender, non distended. PSYCH: Good eye contact, speech is not pressured. Const: Vital Signs, click to edit/add: Vital Signs - 24 hr 03/24/22 10:51 03/24/22 12:53 03/24/22 13:00 Temperature 98.3 F Pulse Rate [Right Brachial] Pulse Rate [Right Pulse Oximeter] 72 64 76 Respiratory Rate 18 16 16 Blood Pressure [Le ft Upper Arm] 90/53 L 87/44 L 116/69 Blood Pressure [Ri ght Arm] Pulse Oximetry 92 94 95 03/24/22 14:00 03/24/22 14:30 03/24/22 15:00 Temperature Pulse Rate [Right Brachial] Pulse Rate [Right Pulse Oximeter] 69 73 74 Respiratory Rate 16 16 16 Blood Pressure [Le ft Upper Arm] 131/89 86/76 L 116/87 Blood Pressure [Ri ght Arm] Pulse Oximetry 96 94 96 03/24/22 16:57 03/24/22 17:23 03/24/22 17:39 Temperature 99.6 F 100 F H Pulse Rate [Right Brachial] 77 Pulse Rate [Right Pulse Oximeter] Respiratory Rate 20 20 Blood Pressure [Le ft Upper Arm] Blood Pressure [Ri ght Arm] 132/65 Pulse Oximetry 94 94 03/24/22 17:51 03/24/22 19:00 03/25/22 00:00 Temperature 100 F H 98.8 F 99.6 F Pulse Rate [Right Brachial] 76 74 Pulse Rate [Right Pulse Oximeter] Respiratory Rate 18 20 Blood Pressure [Le ft Upper Arm] Blood Pressure [Ri ght Arm] 121/68 130/58 L Pulse Oximetry 93 94 03/25/22 00:25 03/25/22 05:00 Temperature 99.6 F 98.7 F Pulse Rate [Right Brachial] 60 Pulse Rate [Right Pulse Oximeter] Respiratory Rate 20 Blood Pressure [Le ft Upper Arm] Blood Pressure [Ri ght Arm] 111/62 Pulse Oximetry 95 Labs Labs: Laboratory Results - last 24 hr 03/24/22 03/24/22 03/24/22 11:23 11:40 11:40 WBC 4.48 L RBC 4.84 Hgb 15.3 Hct 46.6 MCV 96 MCH 32 MCHC 33 RDW Coeff of [place] 15.5 Plt Count 103 L Neut % (Auto) 92.4 H Lymph % (Auto) 4.0 L [place] % (Auto) 1.8 Eos % (Auto) 0.0 Baso % (Auto) 0.0 Neut # (Auto) 4.10 Lymph # (Auto) 0.20 L [place] # (Auto) 0.10 Eos # (Auto) 0.00 Baso # (Auto) 0.00 Abs Immat Gran (auto) 0.08 Diff Slide Review Acceptable Review Sodium 134 L Potassium 4.4 Chloride 105 Carbon Dioxide 15 L BUN 39 H Creatinine 1.5 Estimated Creat Clear 37.82 Estimated GFR 49 Glucose 113 Lactate Calcium 8.4 Total Bilirubin 0.5 AST 35 ALT 28 Alkaline Phosphatase 72 Troponin I Total Protein 9.3 H Albumin 3.5 Urine Color Urine Appearance Urine pH Ur Specific [place] Urine Protein Urine Glucose (UA) Urine Ketones Urine Blood Urine Nitrite Urine Bilirubin Urine Urobilinogen Ur Leukocyte Esterase Urine RBC Urine WBC Ur Squamous Epith Cells Urine Bacteria SARS-CoV-2 (PCR) Negative SARS-CoV-2 Influenza Type A (PCR) Negative PCR FLU A Influenza Type B (PCR) Negative PCR FLU B RSV (PCR) Negative PCR RSV 03/24/22 03/24/22 03/24/22 11:40 11:40 13:30 WBC RBC Hgb Hct MCV MCH MCHC RDW Coeff of [place] Plt Count Neut % (Auto) Lymph % (Auto) [place] % (Auto) Eos % (Auto) Baso % (Auto) Neut # (Auto) Lymph # (Auto) [place] # (Auto) Eos # (Auto) Baso # (Auto) Abs Immat Gran (auto) Diff Slide Review Sodium Potassium Chloride Carbon Dioxide BUN Creatinine Estimated Creat Clear Estimated GFR Glucose Lactate 1.5 Calcium Total Bilirubin AST ALT Alkaline Phosphatase Troponin I 0.03 Total Protein Albumin Urine Color [place] A Urine Appearance Clear Urine pH 5.5 Ur Specific [place] 1.020 Urine Protein 1+ A Urine Glucose (UA) Negative Urine Ketones Negative Urine Blood 3+ A Urine Nitrite Negative Urine Bilirubin Negative Urine Urobilinogen 0.2 Ur Leukocyte Esterase Negative Urine RBC >100 A Urine WBC 0-2 Ur Squamous Epith Cells None Urine Bacteria None SARS-CoV-2 (PCR) Influenza Type A (PCR) Influenza Type B (PCR) RSV (PCR)
[2022-03-25] MEDS: 0.9 % SODIUM CHLORIDE 1000 ml 1,000 ML 75 ML IV (10:11)
--- NOTE | 2022-03-25 15:19 | PC.NURSE ---
Pt Iv infiltrated and R hand has increased pain, placed ice pack on R hand and warm blanket to Left arm. Updated Dr. Echavarria.
--- NOTE | 2022-03-25 18:45 | PC.NURSE ---
End of Shift: Patient pleasant and cooperative. Patient vitally stable, lungs clear, BS WNL, IV running NS at 75. Patient has rated pain at most 8/10, scheduled tylenol given and oral dilauded given when due. Dilauded changed from Q4H to Q2H. Ice pack also used on right arm for pain that has a trace of inflammation. Patient is SBA with walker. Patient urinating, but no BM. Patient tolerating diet.
[2022-03-26] VITALS (9 sets, daily range): BP systolic 98–124; BP diastolic 49–74; PULSE 66–75; RESP 16–20; TEMP 36.6–37.4; O2SAT 93–96
[2022-03-26] MEDS: 0.9 % SODIUM CHLORIDE 1000 ml 1,000 ML 75 ML IV ×2 (00:28→14:45)
[2022-03-26] MEDS: CEFEPIME HCL 2 GM in 0.9 % SODIUM CHLORIDE Mini-bag 100 ML IVPB ×3 (00:29→17:12)
[2022-03-26] MEDS: HYDROmorphone 2 MG TABLET PO ×4 (02:53→12:58)
[2022-03-26] MEDS: fentaNYL 100 MCG/2 ML inj 25 MCG IVP (03:50)
--- NOTE | 2022-03-26 06:13 | PC.NURSE ---
[id number] Pt in pain majority of pain, little relief with prn pain medications, updated [place], recieved order for prn fentynal which pt states relieved pain only breifly. walked halls x1 this a.m. then up to recliner. Ice to R arm with elevation, some reduction in swelling noted, very slight decrease in pain.
[2022-03-26 07:51] LABS: Basophils Absolute Auto 0.01 K/uL (0.00-0.30); Basophils Percent Auto 0.1 % (0.0-3.0); Eosinophils Absolute Auto 0.01 K/uL (0.00-0.50); Eosinophils Percent Auto 0.1 % (0.0-7.0); Hematocrit 29.4 % (37.0-53.0); Hemoglobin* 9.4 gm/dL (13.5-17.5); Immature Granulocytes Abs Auto 0.07 K/uL (0.00-0.30); Lymphocytes Percent Auto 6.9 % (20-44); Mean Corpuscular HGB Conc 32 gm/dL (32-36); Mean Corpuscular Hemoglobin 32 pg (26-34); Mean Corpuscular Volume 99 fL (80-100); Monocytes Percent Auto 1.7 % (0.0-11.0); Neutrophils Percent Auto 90.2 % (42.0-72.0); Platelet Count* 148 K/uL (140-440); RDW Coefficient of Variation % 15.8 % (11.5-15.5); Red Blood Count 2.97 m/uL (4.30-5.90); White Blood Count* 7.14 K/uL (4.50-11.00)
[2022-03-26 07:54] LABS: Slide Review Reflex No
[2022-03-26 07:56] LABS: Albumin* 3.1 g/dL (3.3-5.0); Chloride* 109 mmol/L (96-114)
[2022-03-26 07:57] LABS: Potassium* 3.8 mmol/L (3.6-5.1); Sodium* 135 mmol/L (135-149)
[2022-03-26 07:59] LABS: Amylase* 66 U/L (18-89); Bilirubin Total* 0.4 mg/dL (0.1-1.5); Blood Urea Nitrogen* 22 mg/dL (7-30); Carbon Dioxide* 18 mmol/L (20-32); Est. Creatinine Clearance* 56.73; Estimated Glomerular Filt Rate 80 ml/min; Total Protein* 8.1 g/dL (6.0-8.3)
[2022-03-26 08:00] LABS: Alanine Aminotransferase* 29 U/L (4-50); Alkaline Phosphatase* 73 U/L (40-150); Aspartate Amino Transferase* 28 U/L (12-35); Calcium* 7.5 mg/dL (8.4-10.6); Glucose* 95 mg/dL (60-115); Lipase* 45 U/L (23-300)
[2022-03-26] MEDS: FAMOTIDINE 20 MG TABLET PO ×2 (08:57→21:04)
[2022-03-26] MEDS: lisinopriL 10 MG TABLET PO (08:57)
[2022-03-26] MEDS: hydroCHLOROthiazide 25 MG TABLET PO (08:57)
[2022-03-26] MEDS: ACETAMINOPHEN 325 MG TABLET 650 MG PO ×4 (08:57→21:04)
[2022-03-26] MEDS: ACYCLOVIR 200 MG CAPSULE 400 MG PO ×2 (08:58→21:04)
[2022-03-26] MEDS: POTASSIUM CHLORIDE 10 MEQ CAPSULE ER 20 MEQ PO (08:58)
[2022-03-26] MEDS: SENNOSIDES/DOCUSATE TABLET 1 TAB PO (08:59)
--- NOTE | 2022-03-26 17:39 | PM.IMPN1 ---
Progress Note: A&P Assessment and plan (1) Cellulitis, abdominal wall: Problem details: Probably related to recent Neupogen injections. Status: Acute Assessment and Plan: Improving with cefepime/vancomycin. Continue these antibiotics. (2) Fever: Problem details: Secondary to cellulitis Status: Acute Assessment and Plan: Resolved. (3) Sepsis: Problem details: Secondary to abdominal cellulitis Status: Acute Assessment and Plan: Resolved. (4) Thrombocytopenia: Problem details: Pancytopenia secondary to chemotherapy. Status: Acute Assessment and Plan: Resolved. (5) Leukopenia: Problem details: Pancytopenia secondary to chemotherapy. Status: Acute Assessment and Plan: Resolved. (6) Anemia: Problem details: Pancytopenia secondary to chemotherapy. Normocytic. Status: Acute Assessment and Plan: Hemoglobin was 15.3 yesterday, 9.4 today. I think this is most likely secondary to recent chemotherapy. Possibly also secondary to hematuria recently. Does not meet the criteria for packed red blood cell transfusion at this time. Continue to monitor. (7) Hematuria: Problem details: Present on admission. Status: Acute Assessment and Plan: Will need outpatient follow-up to see if this has resolved. There is no report from nursing or patient of clots in the urine. Possibly but unlikely the source of anemia. (8) Dehydration: Status: Acute Assessment and Plan: Resolved. 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 (11) Chronic obstructive pulmonary disease: Status: Chronic Assessment and Plan: Stable. (12) Right arm pain: Problem details: Patient had a CT chest without contrast as well as a right upper extremity and right neck ultrasound which was negative for DVT which I have reviewed as above. Status: Acute Assessment and Plan: This appears to be a type of neuropathic pain or possibly early shingles. May be an impingement syndrome. I am not seeing any duskiness on examination to indicate arterial occlusion. Continue to monitor. Obtain CT neck tomorrow morning and consider MRI neck when available. (13) Rash: Problem details: chest and axilla, maculopapular rash. Status: Acute Assessment and Plan: Suspect this is heat rash from recent fevers less likely early drug rash. Monitor. (14) Rash: Problem details: left back Status: Acute Assessment and Plan: We have marked the edges to be able to follow this. It does not appear to be cellulitis. Patient has multiple areas of rash as noted. Differential includes a systemic process or possible reaction to recent chemo and immunotherapy regimens. Continue to monitor. (15) Weakness: Status: Acute Assessment and Plan: Continue PT and OT. (16) Intravenous infiltration: Problem details: left forearm Status: Acute Assessment and Plan: Has mild induration in this area. Multiple rashes as noted above. Elevate and use warm compresses to this area. Monitor. Plan VTE prophylaxis with Adam's hose and SCDs. I am holding off on prophylactic doses of enoxaparin due to multiple current skin reactions. Encourage frequent ambulation. Subjective Date Seen: 03/26/22 Interval history: Bran and his had a lot of concerns today. He continues to have very significant right arm pain. He tells me that even light touch causes severe pain and that his pain is not controlled on the current medications. He has not had a bowel movement for several days. He denies any nausea or vomiting. While he is no longer febrile or feeling chilled, he has started to develop a bilateral axillary rash. His IV infiltrated in the left forearm yesterday and it is read on that area today. At least his abdominal cellulitis is improving according to both him and his . His is also wondering if he should have his immunotherapy that he is due for today. He denies any chest pain or shortness of breath. Exam Narrative: Exam Narrative: General: No acute distress. Awake, alert, oriented x3. No pallor. No jaundice. Able to ambulate with wheeled walker. Oropharynx: Clear. Mucous membranes moist. Cardiovascular: Regular rate and rhythm. No murmurs, gallops, or rubs. Respiratory: Clear to auscultation bilaterally. No wheezes or crackles. Abdomen: Bowel sounds present. Soft, nondistended, nontender. Two large areas of jorge erythema, right larger and worse than left. Extremities: No pedal edema. Bilateral upper extremities edema is present, right worse than left. Right hand is slightly weaker than the left, but patient notes that he is painful which is preventing him from gripping harder. No other arm weakness identified. He is able to use this arm for tasks including use of walker. Skin: See abdominal exam above. Additionally he has a half-dollar size lesion on his right back of mild dark erythema, nontender, nonpruritic. Bilateral axilla and chest have a mild maculopapular rash. Const: Vital Signs, click to edit/add: Vital Signs - 24 hr 03/25/22 19:30 03/25/22 23:00 03/26/22 03:00 Temperature 99.1 F 98.9 F 98.9 F Pulse Rate [Left P ulse Oximeter] Pulse Rate [Right Brachial] 84 84 74 Respiratory Rate 18 16 16 Blood Pressure [Le ft Arm] 150/81 H 109/57 L 124/74 Pulse Oximetry 96 96 96 03/26/22 07:30 03/26/22 08:00 03/26/22 12:00 Temperature 98.2 F 98.8 F Pulse Rate [Left P ulse Oximeter] 69 Pulse Rate [Right Brachial] 75 75 Respiratory Rate 16 16 16 Blood Pressure [Le ft Arm] 121/54 L 99/54 L Pulse Oximetry 94 93 03/26/22 12:58 03/26/22 15:00 03/26/22 16:00 Temperature 98.8 F 97.9 F Pulse Rate [Left P ulse Oximeter] 73 73 Pulse Rate [Right Brachial] Respiratory Rate 16 16 Blood Pressure [Le ft Arm] 107/54 L Pulse Oximetry 94 Labs Labs: Laboratory Results - last 24 hr 03/26/22 03/26/22 06:15 06:15 WBC 7.14 RBC 2.97 L Hgb 9.4 L Hct 29.4 L MCV 99 MCH 32 MCHC 32 RDW Coeff of [place] 15.8 H Plt Count 148 Neut % (Auto) 90.2 H Lymph % (Auto) 6.9 L [place] % (Auto) 1.7 Eos % (Auto) 0.1 Baso % (Auto) 0.1 Neut # (Auto) 6.40 Lymph # (Auto) 0.50 L [place] # (Auto) 0.10 Eos # (Auto) 0.01 Baso # (Auto) 0.01 Abs Immat Gran (auto) 0.07 Sodium 135 Potassium 3.8 Chloride 109 Carbon Dioxide 18 L BUN 22 Creatinine 1.0 Estimated Creat Clear 56.73 Estimated GFR 80 Glucose 95 Calcium 7.5 L Total Bilirubin 0.4 AST 28 ALT 29 Alkaline Phosphatase 73 Total Protein 8.1 Albumin 3.1 L Amylase [address] Chest/Ab/Pelvis: Attestation: I have reviewed the pertinent imaging results. Radiologist's impression: Ordering Physician: Grady Celeste M.D. Date of Service: 03/24/22 Procedure(s): CT chest abdomen pelv wo con Accession Number(s): [id number] cc: Grady Celeste M.D.; NIKHIL DARLING DO~ For Patients: As a result of the Cures Act, medical imaging exams and procedure reports are released immediately into your electronic medical record. You may view this report before your referring provider. If you have questions, please contact your health care provider. INDICATION: Fever, back pain, hematuria. TECHNIQUE: CT chest, abdomen, and pelvis without contrast. COMPARISON: PET-CT 02/10/2022. CT abdomen pelvis 02/06/2021. FINDINGS: CHEST: Lungs and pleura: Upper lung predominant emphysema, including paraseptal emphysema with bulla on the left. Minimal dependent atelectasis. Lungs are otherwise clear. No suspicious nodules or infiltrates. No pleural effusions, pleural thickening, or pneumothorax. Cardiovascular structures: Heart size is normal. Thoracic aorta and main pulmonary artery are normal in caliber. Coronary artery calcifications. Mediastinum and rosie: No mass or adenopathy. Chest wall and axilla: No mass or adenopathy. Bones: Partially visualized bilateral shoulder arthroplasty. Thoracic spine degenerative changes. ABDOMEN AND PELVIS: Liver: Unremarkable. Gallbladder and bile ducts: Unremarkable. Spleen: Unremarkable. Adrenal glands: Unremarkable. Pancreas: Unremarkable. Kidneys: Unremarkable. GI tract: Diverticulosis without evidence of diverticulitis. Small and large bowel are normal caliber. No evidence of focal wall thickening or obstruction. Lymph nodes: Unremarkable. Vascular structures: Moderate scattered atherosclerotic calcifications. Fusiform aneurysmal dilatation of the bilateral common iliac arteries measuring 2.1 cm on the right and 2.2 cm on the left. Miscellaneous: Unremarkable. No free air or significant free fluid. Pelvic organs: Possible megaly. Bones: Lumbar spine degenerative changes. IMPRESSION: 1. No acute abnormality of the chest, abdomen, or pelvis. 2. Diverticulosis well evidence diverticulitis. 3. Bilateral common iliac artery aneurysms. Please note that all CT scans at this facility use dose modulation, iterative reconstruction, and/or weight-based dosing when appropriate to reduce radiation dose to as low as reasonably achievable. Dictated by Chris Arthur MD @ 03/24/2022 8:58:05 PM (Electronically Signed) Chest x-ray: Attestation: I have reviewed the pertinent imaging results. Radiologist's impression: Ordering Physician: Una Em M.D. Date of Service: 03/24/22 Procedure(s): XR chest 1V portable Accession Number(s): [id number] cc: NIKHIL DARLING DO; Una Em M.D.~ For Patients: As a result of the Cures Act, medical imaging exams and procedure reports are released immediately into your electronic medical record. You may view this report before your referring provider. If you have questions, please contact your health care provider. INDICATION: FEVER, MULTIPLE MYELOMA TECHNIQUE: Chest 1 view COMPARISON: CT-PET 02/10/2022 FINDINGS: Chronic dependent vascular crowding related to bullous emphysema. No dense infiltrate. No pleural effusion. Mediastinum similar. Postop changes well shoulders. IMPRESSION: Emphysematous changes. No dense infiltrate. Dictated by Ajay Motta MD @ 03/24/2022 12:33:15 PM (Electronically Signed) Venous US: Attestation: I have reviewed the pertinent imaging results. Radiologist's impression: Ordering Physician: Una Em M.D. Date of Service: 03/24/22 Procedure(s): US venous UE RT Accession Number(s): [id number] cc: NIKHIL DARLING DO; Una Em M.D.~ For Patients: As a result of the Cures Act, medical imaging exams and procedure reports are released immediately into your electronic medical record. You may view this report before your referring provider. If you have questions, please contact your health care provider. INDICATION: RUE PAIN, MALIGNANCY COMPARISON: None. TECHNIQUE: Right upper extremity and neck venous ultrasound performed as well as ultrasound of left internal jugular vein including weldon scale/2D, color Doppler, and spectral Doppler imaging including spectral waveform analysis. FINDINGS: The internal jugular, innominate, subclavian, axillary, basilic, cephalic, and brachial veins were patent and negative for thrombus. IMPRESSION: No evidence for DVT in the right upper extremity and neck venous system. Dictated by Ajay Motta MD @ 03/24/2022 12:38:11 PM (Electronically Signed)
[2022-03-26] MEDS: polyethylene glycoL 3350 17 GM PACK PO (18:17)
--- NOTE | 2022-03-26 18:31 | PC.NURSE ---
End of Shift: Patient pleasant and cooperative. Afebrile. Rating pain in right arm 7-8/10, PRN Dilaudid given x2 and patient states not much pain relief. Arm also elevated and ice applied. Updated MD and new orders received for oxycodone. Patient up to bathroom and chair with 1 assist, walker and gait belt. Walking in hallway x2. Redness to abdomen, left arm and back outlined. Rash also noted under bilateral arms. MD updated. Tolerating regular diet with no nausea.
[2022-03-26] MEDS: OXYCODONE 5 MG TABLET PO (18:38)
[2022-03-26] MEDS: GABAPENTIN 300 MG CAPSULE PO (21:04)
[2022-03-27] MEDS: CEFEPIME HCL 2 GM in 0.9 % SODIUM CHLORIDE Mini-bag 100 ML IVPB ×2 (00:35→08:55)
[2022-03-27] MEDS: OXYCODONE 5 MG TABLET PO ×2 (00:36→07:22)
--- NOTE | 2022-03-27 04:23 | PC.NURSE ---
Shift note -: Pt alert, uses call light for needs, up to BR w/ SBA of 1. Pt continues w/ pain to R hand but states does notice improve w/ use of Gabapentin and Oxycodone, hand remains swollen, elevation and ice utilized. Pt w/ 3 areas of red rash circled, areas on back and L side of abd show improvement while the midline abd one remains unchanged. Temps of 99.4 and 99.0, states chills have subsided.
[2022-03-27 06:30] LABS: Ionized Calcium* 1.07 mmol/L (1.11-1.30)
[2022-03-27 06:35] LABS: Basophils Absolute Auto 0.01 K/uL (0.00-0.30); Basophils Percent Auto 0.1 % (0.0-3.0); Hematocrit 26.6 % (37.0-53.0); Hemoglobin* 8.5 gm/dL (13.5-17.5); Immature Granulocytes Abs Auto 0.07 K/uL (0.00-0.30); Mean Corpuscular HGB Conc 32 gm/dL (32-36); Mean Corpuscular Hemoglobin 32 pg (26-34); Mean Corpuscular Volume 99 fL (80-100); Monocytes Percent Auto 2.2 % (0.0-11.0); Neutrophils Percent Auto 87.8 % (42.0-72.0); Platelet Count* 150 K/uL (140-440); RDW Coefficient of Variation % 15.8 % (11.5-15.5); White Blood Count* 7.28 K/uL (4.50-11.00)
[2022-03-27 06:45] VITALS: BP 98/53; PULSE 70; RESP 18; TEMP 37.3; O2SAT 96
[2022-03-27 06:55] LABS: Albumin* 2.8 g/dL (3.3-5.0); Chloride* 109 mmol/L (96-114); Sodium* 133 mmol/L (135-149)
[2022-03-27 06:56] LABS: Potassium* 3.8 mmol/L (3.6-5.1)
[2022-03-27 06:58] LABS: Alkaline Phosphatase* 102 U/L (40-150); Aspartate Amino Transferase* 39 U/L (12-35); Carbon Dioxide* 17 mmol/L (20-32); Est. Creatinine Clearance* 56.73; Estimated Glomerular Filt Rate 80 ml/min
[2022-03-27 06:59] LABS: Alanine Aminotransferase* 42 U/L (4-50); Blood Urea Nitrogen* 24 mg/dL (7-30); Calcium* 7.3 mg/dL (8.4-10.6); Glucose* 101 mg/dL (60-115); Total Protein* 7.5 g/dL (6.0-8.3)
[2022-03-27 07:00] VITALS: BP 117/60; PULSE 75; RESP 18; TEMP 36.7; O2SAT 95
[2022-03-27 07:32] LABS: Bilirubin Total* 0.3 mg/dL (0.1-1.5)
[2022-03-27 07:34] LABS: Lymphocytes Percent Auto 8.9 % (20-44); Slide Review Reflex Yes
[2022-03-27 07:36] LABS: Slide Review Acceptable Review (Acceptable)
[2022-03-27] MEDS: POTASSIUM CHLORIDE 10 MEQ CAPSULE ER 20 MEQ PO (08:15)
[2022-03-27 08:53] VITALS: TEMP 36.7
[2022-03-27] MEDS: FAMOTIDINE 20 MG TABLET PO (08:53)
[2022-03-27] MEDS: ACETAMINOPHEN 325 MG TABLET 650 MG PO ×2 (08:53→15:06)
[2022-03-27] MEDS: lisinopriL 10 MG TABLET PO (08:53)
[2022-03-27] MEDS: ACYCLOVIR 200 MG CAPSULE 400 MG PO (08:53)
[2022-03-27] MEDS: hydroCHLOROthiazide 25 MG TABLET PO (08:54)
[2022-03-27] MEDS: GABAPENTIN 300 MG CAPSULE PO (08:54)
[2022-03-27] MEDS: SODIUM CHLORIDE 0.9 % (FLUSH) 10 ML SYRINGE 5 ML IVF ×2 (08:56→12:44)
[2022-03-27] MEDS: polyethylene glycoL 3350 17 GM PACK PO (09:56)
[2022-03-27 11:00] VITALS: BP 100/58; PULSE 67; RESP 16; TEMP 37; O2SAT 94
--- NOTE | 2022-03-27 13:27 | PM.DS1 ---
DS: Providers Provider Time Seen by Provider: 11:05 Date Seen: 03/27/22 Date of admission: 03/24/22 16:47 Primary care physician: NIKHIL DARLING DO Admitting Clinician: Grady Celeste MD Consults: 03/24/22 16:42 Consult to Nutrition [CONS] Routine Comment: Reason for consult:: Miscellaneous Comment: plasma cell neoplasm, chemo, preparing for bone marrow transplant Consult to Occupational Therapy [CONS] Routine Comment: R arm pain Reason(s) for OT Consult:: Evaluate and Treat Any Restrictions?:: No Restrictions Consult to Physical Therapy [CONS] Routine Comment: optimize home safety, transfers Reason(s) for PT Consult:: Evaluate and Treat Any Restrictions?:: See Comment Comment: back pain 03/24/22 17:50 Consult to Physical Therapy [CONS] Urgent Comment: Reason(s) for PT Consult:: Evaluate Ambulation Any Restrictions?:: No Restrictions Attending Physician on discharge: Grady Celeste MD Date of Discharge: 03/27/22 DS: Diagnosis Discharge Diagnosis (1) Cellulitis, abdominal wall: Status: Acute Problem details: Probably related to recent Velcade injections. (2) Rash: Status: Acute Problem details: left back - resolved 03/27/22 (3) Rash: Status: Acute Problem details: chest and axilla, maculopapular rash. Probable heat rash from fever. Resolving 03/27/22. (4) Intravenous infiltration: Status: Acute Problem details: left forearm - erythema resolved 03/27/22. (5) Right arm pain: Status: Acute Problem details: Patient had a CT chest without contrast as well as a right upper extremity and right neck ultrasound which was negative for DVT (6) Weakness: Status: Acute Problem details: due to infection (cellulitis)/sepsis (7) Hypocalcemia: Status: Acute (8) Thrombocytopenia: Status: Acute Problem details: Pancytopenia secondary to chemotherapy. (9) Leukopenia: Status: Acute Problem details: Pancytopenia secondary to chemotherapy. (10) Fever: Status: Acute Problem details: Secondary to cellulitis (11) Sepsis: Status: Acute Problem details: Secondary to abdominal cellulitis (12) Hematuria: Status: Acute Problem details: Present on admission UA. (13) Dehydration: Status: Acute (14) Multiple myeloma: Status: Chronic Problem details: Plasma cell neoplasm, IgA Lambda (15) Plasma cell neoplasm: Status: Chronic Problem details: IgA Lambda, high risk, gain of chromosome 1q, complex cytogenetics, stage III, 70% bone marrow involvement w/ plasma cell neoplasm (02/2022) (16) Chronic obstructive pulmonary disease: Status: Chronic (17) Anemia: Status: Acute Problem details: Pancytopenia secondary to chemotherapy. Normocytic. Hgb 8.5 on discharge 03/27/22 DS: Summary Hospital Course Hospital Course: This is a 72-year-old male who was newly diagnosed with plasma cell neoplasm, IgA lambda, high risk, gain of chromosome 1q, complex cytogenetics, stage III, with 70% bone marrow involvement of plasma cell neoplasm per bone marrow aspirate and biopsy February 2022. He was started on Velcade, Revlimid and dexamethasone in a 21 day cycle. He had recently received Velcade then started having high fevers. He also developed expanding skin lesions at the sites of Velcade injection on his abdomen. The reaction was nontender to palpation. He apparently had a similar red reaction for him his 1st injection a week prior to that. He presented to the emergency department with what appeared to be a septic syndrome, but he was not neutropenic. He was leukopenic. He is admitted to the hospital, CT chest abdomen and pelvis was obtained without contrast, he was given IV fluids for dehydration. He was started on cefepime and vancomycin after cultures were obtained. Both his blood cultures have been negative. Also of note is that this patient had right arm swelling pain without any recent injury. Right upper extremity ultrasound was negative for DVT. He felt somewhat weak overall. PT and OT were initiated and he did well and is able to ambulate with a front wheeled walker. And transfer with minimal assist. On hospital day 2 his IV infiltrated in the left arm. By hospital day 3 he had several rashes: What appeared to be cellulitis around the to recent Velcade injection sites, a small round rash on his right back, induration around the area of IV infiltration in his left forearm, and a mild maculopapular rash on his chest and bilateral axilla. He was afebrile at this point. By the next hospital day these rashes had all improved or resolved. His right arm pain was improving with gabapentin and oxycodone. He was discharged home today in stable condition. I have asked him to follow-up with his primary care provider early to mid this week. I have also asked him to contact his lasting room machine operator to determine if he should continue alirocumab. Note to primary care provider: He will need follow-up for his right arm pain, hematuria seen on the urinalysis done on admission, and to ensure that he continues to improve now that he has been transition to oral antibiotic therapy with doxycycline. If his condition worsens or does not improve, or if there are more rashes that develop, other diagnoses should again be considered such as Sweet's syndrome or other reaction to Velcade or other systemic inflammatory conditions. Status at Discharge Functional status at discharge: uses cane/walker Overall status at discharge: patient is progressing back to baseline Time Spent with Patient Time attestation: Total time spent providing and/or coordinating discharge services: Time spent: Greater than 30 minutes Specific discharge activities: discussion with patient and , discussion with PT and OT Exam Narrative: Exam Narrative: General: No acute distress. Awake, alert, oriented x3. No pallor. No jaundice. Oropharynx: Clear. Mucous membranes moist. Cardiovascular: Regular rate and rhythm. No murmurs, gallops, or rubs. Respiratory: Clear to auscultation bilaterally. No wheezes or crackles. Abdomen: Bowel sounds present. Soft, nondistended, nontender. Two areas of erythema have significantly improved. Extremities: No pedal edema. Bilateral upper extremities edema has resolved. Skin: See abdominal exam above. Additionally rash on back is resolved. Axilla and chest maculopapular rash has improved and is gone from the left axilla. Left forearm induration resolved. Const: Vital Signs, click to edit/add: Vital Signs - 24 hr 03/26/22 15:00 03/26/22 16:00 03/26/22 20:57 Temperature 97.9 F 99.4 F Pulse Rate [Left P ulse Oximeter] 73 73 74 Respiratory Rate 16 16 16 Blood Pressure [Le ft Arm] 107/54 L Blood Pressure [Ri ght Arm] 122/54 L Pulse Oximetry 94 96 03/27/22 06:45 03/27/22 07:00 03/27/22 08:53 Temperature 99.2 F 98.0 F 98.0 F Pulse Rate [Left P ulse Oximeter] 70 75 Respiratory Rate 18 18 Blood Pressure [Le ft Arm] 98/53 L 117/60 Blood Pressure [Ri ght Arm] Pulse Oximetry 96 95 03/27/22 11:00 Temperature 98.6 F Pulse Rate [Left P ulse Oximeter] 67 Respiratory Rate 16 Blood Pressure [Le ft Arm] 100/58 L Blood Pressure [Ri ght Arm] Pulse Oximetry 94 DS: Data Data Completed and Pending Labs on day of discharge: Labs from last 24 hours 03/27/22 03/27/22 03/27/22 05:35 05:35 05:35 WBC 7.28 RBC 2.70 L Hgb 8.5 L Hct 26.6 L MCV 99 MCH 32 MCHC 32 RDW Coeff of [place] 15.8 H Plt Count 150 Neut % (Auto) 87.8 H Lymph % (Auto) 8.9 L [place] % (Auto) 2.2 Eos % (Auto) 0.0 Baso % (Auto) 0.1 Neut # (Auto) 6.40 Lymph # (Auto) 0.60 L [place] # (Auto) 0.20 Eos # (Auto) 0.00 Baso # (Auto) 0.01 Abs Immat Gran (auto) 0.07 Diff Slide Review Acceptable Review Sodium 133 L Potassium 3.8 Chloride 109 Carbon Dioxide 17 L BUN 24 Creatinine 1.0 Estimated Creat Clear 56.73 Estimated GFR 80 Glucose 101 Calcium 7.3 L Ionized Calcium [place] 1.07 L Total Bilirubin 0.3 AST 39 H ALT 42 Alkaline Phosphatase 102 Total Protein 7.5 Albumin 2.8 L Preliminary micro results at discharge 03/24/22 12:00 Blood Culture - Preliminary Blood No growth. 03/24/22 12:00 Blood Culture - Preliminary Blood No growth. Ordering Physician: Una Em M.D. Date of Service: 03/24/22 Procedure(s): XR chest 1V portable Accession Number(s): [id number] cc: NIKHIL DARLING DO; Una Em M.D.~ For Patients: As a result of the Cures Act, medical imaging exams and procedure reports are released immediately into your electronic medical record. You may view this report before your referring provider. If you have questions, please contact your health care provider. INDICATION: FEVER, MULTIPLE MYELOMA TECHNIQUE: Chest 1 view COMPARISON: CT-PET 02/10/2022 FINDINGS: Chronic dependent vascular crowding related to bullous emphysema. No dense infiltrate. No pleural effusion. Mediastinum similar. Postop changes well shoulders. IMPRESSION: Emphysematous changes. No dense infiltrate. Dictated by Ajay Motta MD @ 03/24/2022 12:33:15 PM (Electronically Signed) Ordering Physician: Una Em M.D. Date of Service: 03/24/22 Procedure(s): US venous UE RT Accession Number(s): [id number] cc: NIKHIL DARLING DO; Una Em M.D.~ For Patients: As a result of the Cures Act, medical imaging exams and procedure reports are released immediately into your electronic medical record. You may view this report before your referring provider. If you have questions, please contact your health care provider. INDICATION: RUE PAIN, MALIGNANCY COMPARISON: None. TECHNIQUE: Right upper extremity and neck venous ultrasound performed as well as ultrasound of left internal jugular vein including weldon scale/2D, color Doppler, and spectral Doppler imaging including spectral waveform analysis. FINDINGS: The internal jugular, innominate, subclavian, axillary, basilic, cephalic, and brachial veins were patent and negative for thrombus. IMPRESSION: No evidence for DVT in the right upper extremity and neck venous system. Dictated by Ajay Motta MD @ 03/24/2022 12:38:11 PM (Electronically Signed) Ordering Physician: Grady Celeste M.D. Date of Service: 03/24/22 Procedure(s): CT chest abdomen pelv wo con Accession Number(s): [id number] cc: Grady Celeste M.D.; NIKHIL DARLING DO~ For Patients: As a result of the Cures Act, medical imaging exams and procedure reports are released immediately into your electronic medical record. You may view this report before your referring provider. If you have questions, please contact your health care provider. INDICATION: Fever, back pain, hematuria. TECHNIQUE: CT chest, abdomen, and pelvis without contrast. COMPARISON: PET-CT 02/10/2022. CT abdomen pelvis 02/06/2021. FINDINGS: CHEST: Lungs and pleura: Upper lung predominant emphysema, including paraseptal emphysema with bulla on the left. Minimal dependent atelectasis. Lungs are otherwise clear. No suspicious nodules or infiltrates. No pleural effusions, pleural thickening, or pneumothorax. Cardiovascular structures: Heart size is normal. Thoracic aorta and main pulmonary artery are normal in caliber. Coronary artery calcifications. Mediastinum and rosie: No mass or adenopathy. Chest wall and axilla: No mass or adenopathy. Bones: Partially visualized bilateral shoulder arthroplasty. Thoracic spine degenerative changes. ABDOMEN AND PELVIS: Liver: Unremarkable. Gallbladder and bile ducts: Unremarkable. Spleen: Unremarkable. Adrenal glands: Unremarkable. Pancreas: Unremarkable. Kidneys: Unremarkable. GI tract: Diverticulosis without evidence of diverticulitis. Small and large bowel are normal caliber. No evidence of focal wall thickening or obstruction. Lymph nodes: Unremarkable. Vascular structures: Moderate scattered atherosclerotic calcifications. Fusiform aneurysmal dilatation of the bilateral common iliac arteries measuring 2.1 cm on the right and 2.2 cm on the left. Miscellaneous: Unremarkable. No free air or significant free fluid. Pelvic organs: Possible megaly. Bones: Lumbar spine degenerative changes. IMPRESSION: 1. No acute abnormality of the chest, abdomen, or pelvis. 2. Diverticulosis well evidence diverticulitis. 3. Bilateral common iliac artery aneurysms. Please note that all CT scans at this facility use dose modulation, iterative reconstruction, and/or weight-based dosing when appropriate to reduce radiation dose to as low as reasonably achievable. Dictated by Chris Arthur MD @ 03/24/2022 8:58:05 PM (Electronically Signed) EKG: Normal sinus rhythm, heart rate 64 beats per minute. Junctional ST depression, probably normal, prolonged QT, QTC is 497 milliseconds. Discharge Plan Discharge Disposition: Home, Self-Care Date of Admission: 03/24/22 16:47 Attending Provider on Discharge: Corrine Atkins Primary Care Provider: NIKHIL DARLING Condition: Improved Anticipated Discharge Date/Time: 03/27/22 15:00 Discharge Medications: New gabapentin 300 mg Capsule 300 mg PO BID Qty: 60 0RF oxycodone 5 mg Tablet 5 - 10 mg PO Q6H MDD 6 tabs PRN (Reason: Pain) Qty: 30 0RF polyethylene glycol 3350 [Miralax] 17 gram Powder In Packet 17 g PO DAILY PRNQty: 10 0RF sennosides-docusate sodium [Stool Softener-Laxative] 8.6-50 mg Tablet 1 tab PO DAILY PRNQty: 30 0RF doxycycline hyclate 100 mg capsule 100 mg PO BID Qty: 14 0RF Continued tiotropium bromide 18 mcg capsule, w/inhalation device 1 cap inhalation DAILY 0RF albuterol 90 mcg/actuation aerosol 2 spray inhalation Q4H PRN0RF lisinopril 10 mg tablet 10 mg PO QDAY 0RF hydrochlorothiazide 25 mg tablet 25 mg PO QAM 0RF cholecalciferol (vitamin D3) 100 mcg (4,000 unit) tablet 100 mcg PO QDAY 0RF potassium chloride 20 mEq tablet extended release 20 meq PO QDAY 0RF Label Comments: take with meals acetaminophen [Tylenol Extra Strength] 500 mg tablet 1,000 mg PO BID PRN0RF acyclovir 400 mg tablet 400 mg PO BID 30 Days Qty: 60 3RF sulfamethoxazole-trimethoprim [Bactrim DS] 800-160 mg tablet 1 tab PO 3XW Qty: 30 1RF dexamethasone 4 mg tablet 40 mg PO .COMPLEX Qty: 40 3RF Rx Instructions: 40 mg PO weekly; famotidine [Pepcid] 20 mg tablet 20 mg PO BID 42 Days Qty: 84 2RF lenalidomide 25 mg capsule 25 mg PO QDAY 14 Days Qty: 14 1RF Rx Instructions: Take 1 capsule daily, D1-D14, and 1 week off, in a 21 day cycle; swallow whole with glass of water; do not open, crush, chew , break, or dissolve. nitroglycerin 0.4 mg tablet, sublingual 0.4 mg sublingual Q5M PRN0RF Rx Instructions: do not exceed 3 doses per episode Held alirocumab 150 mg/mL pen injector 150 mg subcut .Every 14 Days 0RF Hold Instructions: Talk with lasting room machine operator about when to resume. Discharge Orders: Discharge Order (Routine); Ordered 03/27/22 Ordered By: Corrine Atkins Patient Education: Doxycycline (By mouth), Laxative, Stimulant (By mouth), Gabapentin (By mouth), Oxycodone, Rapid Release (By mouth), Polyethylene Glycol 3350 (By mouth), Cellulitis (GEN) Activity Level: Use Walker Activity Detail: FWW Discharge Diet: Regular Follow Up Appointments: NIKHIL DARLING DO [Primary Care Provider] - 03/29/22 11:40 am Forms: [employer] Info Instructions
--- NOTE | 2022-03-27 16:14 | PC.NURSE ---
Discharge Summary: Patient pleasant and cooperative. Afebrile. Rating pain in right arm, back and neck up to 8-10/10. PRN Oxycodone x1 and pain decreased to 6/10. Also using ice and elevation to right arm and heat to neck. Up to chair and bathroom with SBA, walker and gait belt. Tolerating regular diet with no nausea. Patient discharged home at 1603 with all personal belongings accompanied by spouse. Discharge instructions including diagnosis, medications and follow up plan discussed with patient and voiced understanding.
== END 2022-03-27 16:05 | disposition home or self-care (01) | DRG 871 ==
LOC: ED 16:33 → MEDSURG 16:50
PROVIDERS: Family Medicine; Internal Medicine; Admitting Provider Internal Medicine; Emergency Provider Family Medicine; PCP Student in an Organized Health Care Education/Training Program; Visit Provider Internal Medicine
DX: A41.9 Sepsis, unspecified organism (principal); D61.810 Antineoplastic chemotherapy induced pancytopenia; L03.311 Cellulitis of abdominal wall; C90.00 Multiple myeloma not having achieved remission; E66.9 Obesity, unspecified; R31.9 Hematuria, unspecified; E86.0 Dehydration; D72.819 Decreased white blood cell count, unspecified; D69.6 Thrombocytopenia, unspecified; T45.1X5A Adverse effect of antineoplastic and immunosuppressive drugs, initial encounter; D64.9 Anemia, unspecified; L27.0 Generalized skin eruption due to drugs and medicaments taken internally; M79.601 Pain in right arm; J44.9 Chronic obstructive pulmonary disease, unspecified; I10 Essential (primary) hypertension; I25.10 Atherosclerotic heart disease of native coronary artery without angina pectoris; E78.5 Hyperlipidemia, unspecified; E83.51 Hypocalcemia
CPT/HCPCS: 36415; 71045; 71250; 74176; 80053; 81001; 82150; 82330; 83605; 83690; 84484; 85025; 87040; 87086; 87502; 87634; 87635; 93005; 93971; 97110; 97116; 97162; 97165; 97530; 97535; 99284; 99285; A9270; J0610; J0692; J3010; J3370; J7030; J7120

== ENCOUNTER 2022-03-28 10:00 | Outpatient (RCR) | payer MEDICARE, OTHER, SELFPAY ==
[2022-03-08 12:17] LABS: Basophils Absolute Auto 0.02 K/uL (0.00-0.30); Basophils Percent Auto 0.3 % (0.0-3.0); Eosinophils Absolute Auto 0.01 K/uL (0.00-0.50); Eosinophils Percent Auto 0.2 % (0.0-7.0); Hematocrit 37.7 % (37.0-53.0); Hemoglobin* 11.9 gm/dL (13.5-17.5); Immature Granulocytes Abs Auto 0.03 K/uL (0.00-0.30); Lymphocytes Absolute Auto 1.31 K/uL (0.90-2.90); Lymphocytes Percent Auto 21.3 % (20-44); Mean Corpuscular HGB Conc 32 gm/dL (32-36); Mean Corpuscular Hemoglobin 32 pg (26-34); Mean Corpuscular Volume 100 fL (80-100); Monocytes Percent Auto 7.8 % (0.0-11.0); Neutrophils Absolute Auto 4.29 K/uL (1.7-7.0); Neutrophils Percent Auto 69.9 % (42.0-72.0); Platelet Count* 170 K/uL (140-440); RDW Coefficient of Variation % 14.9 % (11.5-15.5); Red Blood Count 3.77 m/uL (4.30-5.90); White Blood Count* 6.14 K/uL (4.50-11.00)
[2022-03-08 12:22] LABS: Albumin* 3.9 g/dL (3.3-5.0); Chloride* 109 mmol/L (96-114); Sodium* 140 mmol/L (135-149)
[2022-03-08 12:23] LABS: Potassium* 4.7 mmol/L (3.6-5.1)
[2022-03-08 12:25] LABS: Alanine Aminotransferase* 25 U/L (4-50); Alkaline Phosphatase* 126 U/L (40-150); Aspartate Amino Transferase* 33 U/L (12-35); Bilirubin Total* 0.6 mg/dL (0.1-1.5); Blood Urea Nitrogen* 24 mg/dL (7-30); Carbon Dioxide* 22 mmol/L (20-32); Creatinine* 0.9 mg/dL (0.5-1.5); Estimated Glomerular Filt Rate 91.31; Glucose* 103 mg/dL (60-115); Lactate Dehydrogenase* 377 U/L (313-618); Uric Acid* 7.4 mg/dL (2.2-8.4)
[2022-03-08 12:26] LABS: Calcium* 9.8 mg/dL (8.4-10.6)
[2022-03-08 12:41] LABS: Slide Review Reflex No
--- NOTE | 2022-03-08 15:08 | ONC.NURNOTE ---
NCCN DISTRESS SCREENING = 4 concerns related to new treatment start fears and nervousness and fatigue
--- NOTE | 2022-03-08 15:44 | ONC.NURNOTE ---
New Treatment Teaching on Velcade/Dex/Lenolidamide reviewed new patient teaching binder [facility] enrollment discussed and completed Lenolidamide ordering process reviewed, including possibility of copay program if high monthly out of pocket costs Reviewed treatment schedule, after hours management, possible side effects of medications, safe handling and disposal, self care at home medication handouts provided questions addressed FAISAL and treatment consents signed lab drawn today patient to bring 24 hour urine back this week
--- NOTE | 2022-03-09 14:45 | URNOTE ---
Received request for prior auth for Zoledronic Acid (J3489) and Bortezomib(J9041). Pt has medicare and [employer] supplement. Prior authorization is not requirred as services are based on medical necessity and follow medicre guidelines
--- NOTE | 2022-03-09 15:40 | ONC.NURNOTE ---
PA submitted to [facility] for Revlimid fax [phone]
[2022-03-10 06:48] LABS: Albumin 5.84 g/dL (3.75-5.01); Alpha 2 Globulin 1.08 g/dL (0.48-1.05); Immunofixation IFE Done; Immunoglobulin A 212 mg/dL (68-408); Immunoglobulin G 1071 mg/dL (768-1632); Immunoglobulin M 121 mg/dL (35-263); Kappa Qnt Free Light Chains 24.24 mg/L (3.30-19.40); Kappa/Lambda Light Chain Ratio 1.13 (0.26-1.65); Lambda Qnt Free Light Chains 21.45 mg/L (5.71-26.30); Total Protein, Serum 10.5 g/dL (6.3-8.2)
--- NOTE | 2022-03-10 12:29 | ONC.NURNOTE ---
ANOTHER REVELEUTERIO PA REQUEST RECEIVED BY FAX TODAY AND RESUBMITTED ON [email or web address]
--- NOTE | 2022-03-11 12:27 | ONC.NURNOTE ---
BONI approved for Revlimid with a $2200 copay/monthly message left for patient - he will need to contact the Revlimid team at [facility] to enroll in a copay program
[2022-03-12 20:45] LABS: Free Urinary Kappa Excret/Day 17.08 mg/d; Free Urinary Lambda Excr/Day 77.85 mg/d; Free Urine LAmbda Light Chains 30.53 mg/L (0.00-3.79); Hours Collected 24 hr; Total Protein 197 mg/d (<=150); Total Volume 2550 mL
[2022-03-17 09:06] VITALS: BP 129/70; PULSE 78; RESP 16; TEMP 36; O2SAT 97
[2022-03-17 09:49] LABS: Basophils Absolute Auto 0.02 K/uL (0.00-0.30); Basophils Percent Auto 0.3 % (0.0-3.0); Eosinophils Absolute Auto 0.06 K/uL (0.00-0.50); Hematocrit 35.7 % (37.0-53.0); Hemoglobin* 11.3 gm/dL (13.5-17.5); Immature Granulocytes Abs Auto 0.05 K/uL (0.00-0.30); Lymphocytes Absolute Auto 1.38 K/uL (0.90-2.90); Lymphocytes Percent Auto 24.1 % (20-44); Mean Corpuscular HGB Conc 32 gm/dL (32-36); Mean Corpuscular Hemoglobin 32 pg (26-34); Mean Corpuscular Volume 100 fL (80-100); Monocytes Percent Auto 9.8 % (0.0-11.0); Neutrophils Absolute Auto 3.65 K/uL (1.7-7.0); Neutrophils Percent Auto 63.9 % (42.0-72.0); Platelet Count* 155 K/uL (140-440); RDW Coefficient of Variation % 15.1 % (11.5-15.5); Red Blood Count 3.57 m/uL (4.30-5.90); White Blood Count* 5.72 K/uL (4.50-11.00)
[2022-03-17 09:57] LABS: Slide Review Reflex No
[2022-03-17 10:07] LABS: Albumin* 3.8 g/dL (3.3-5.0); Chloride* 107 mmol/L (96-114); Potassium* 4.3 mmol/L (3.6-5.1); Sodium* 140 mmol/L (135-149)
[2022-03-17 10:09] LABS: Creatinine* 1.1 mg/dL (0.5-1.5); Estimated Glomerular Filt Rate 71.77
[2022-03-17 10:10] LABS: Alanine Aminotransferase* 25 U/L (4-50); Alkaline Phosphatase* 115 U/L (40-150); Aspartate Amino Transferase* 31 U/L (12-35); Bilirubin Total* 0.6 mg/dL (0.1-1.5); Blood Urea Nitrogen* 30 mg/dL (7-30); Calcium* 9.5 mg/dL (8.4-10.6); Carbon Dioxide* 20 mmol/L (20-32); Glucose* 102 mg/dL (60-115)
--- NOTE | 2022-03-17 11:23 | ONC.NURNOTE ---
zometa dosing, creatinine clearance Mr. Simental is newly diagnosed multiple myeloma to start velcade today. He is also to receive zometa at routine 4mg dosing. Weight 92.215kg, Height 163.8cm, Age 72, creatinine 1.1. Cockcroft gault estimate 80 ml.min actual body weight, 52.6-63.7 ml/min ideal. Will leave dose for zometa at 4mg today.
[2022-03-17] MEDS: ZOLEDRONIC ACID 4 MG in 0.9 % SODIUM CHLORIDE 100 ml 100 ML 420 MG IVPB (11:35)
[2022-03-17] MEDS: 0.9 % SODIUM CHLORIDE 250 ml IV (16:10)
[2022-03-17] MEDS: SODIUM CHLORIDE 0.9 % (FLUSH) 10 ML SYRINGE IVF (16:11)
[2022-03-21 09:25] VITALS: BP 150/68; PULSE 79; RESP 16; TEMP 37.1; O2SAT 96
--- NOTE | 2022-03-21 13:39 | ONC.NURNOTE ---
states fever 101 and chills monday after receiving first valcade . states by sat am felt fine. Ann KHAN aware. ok to treat
--- NOTE | 2022-03-24 08:49 | ONC.NURNOTE ---
called today stating after Bran received Velcade sq LLQ monday, he had had a temp and his back went out. He has scoliosis. He saw the Chiropractor and . today he can hardly get out of bed. still has a 100.6 temp and severe rt arm pain. Shannan KHAN aware. Bran needs to be seen by a Doctor today. pts is calling the ambulance to take Bran to the ER.
--- NOTE | 2022-03-28 12:15 | ONC.NURNOTE ---
Addendum entered by Fadumo Raymond RN 03/28/22 14:38: Leticia (Hematology- [facility]) was in touch with Dr Huynh and Alise called with recommendations Alise has opted to bring Bran to the [facility] ED This contract writer faxed hospital and oncology notes to Leticia today per Hematology Dept requests Original Note: called today with multiple concerns and questions about the following -constipation continues-no BM since last Mon, has been taking 1 Senna and daily miralax contract writer recommended 2-3 senna now + miralax and to add an enema or suppository today- agrees Right hand continues with swelling and significant pain- will be following up with Dr Hrarison tomorrow Reports significant weakness, up with assist only, states that she is challenged to help him without additional support- Bran is unable to provide much help in standing and moving This is a change from last week, since hospitalization Bran has been continuing with the Revlimid- contract writer told to hold today's dose until further instruction Bran palm is running the the 's with some chilling is questioning if she should transport him to the ER at the [facility] Plan: Fly Fishing Guide contacted [facility] Nurse Navigator Leticia Carroll from Dr Huynh office [place] Records faxed to Leticia Kelly to be in touch with Dr Huynh and will call Alise back ()
--- NOTE | 2022-03-31 14:22 | ONC.NURNOTE ---
and patient called for next treatment planning and hospital follow up with Dr Yossi Sotomayor reports improvement in physical wellbeing, he is ambulating without a walker and feeling much better content writer faxed in next Revlimid order to [facility] content writer advised pt/ that if they question about continuation of revlimid- they may hold on ordering next dose until they see Dr Sy- Bran has 3 Revlimid left over from cycle #1 However next RX has been signed and faxed in and is ready for them if they decide to have it delivered
== END 2022-04-03 23:59 | disposition home or self-care (01) ==
LOC: CCIC 10:00
PROVIDERS: Clinical Nurse Specialist; PCP Student in an Organized Health Care Education/Training Program; Visit Provider Internal Medicine Hematology & Oncology
DX: D49.89 Neoplasm of unspecified behavior of other specified sites (principal); C90.00 Multiple myeloma not having achieved remission
CPT/HCPCS: 36415; 80053; 82232; 82784; 83520; 83615; 84155; 84156; 84165; 84550; 85025; 86334; 86335; 96374; 99203; 99205; J3489; J7050; J9041

== ENCOUNTER 2022-07-20 11:59 | Outpatient (RCR) | payer MEDICARE, OTHER, SELFPAY ==
[2022-04-06 15:11] LABS: Basophils Absolute Auto 0.03 K/uL (0.00-0.30); Basophils Percent Auto 0.4 % (0.0-3.0); Eosinophils Absolute Auto 0.02 K/uL (0.00-0.50); Eosinophils Percent Auto 0.3 % (0.0-7.0); Hematocrit 30.5 % (37.0-53.0); Hemoglobin* 9.4 gm/dL (13.5-17.5); Immature Granulocytes Abs Auto 0.23 K/uL (0.00-0.30); Lymphocytes Absolute Auto 1.37 K/uL (0.90-2.90); Lymphocytes Percent Auto 20.2 % (20-44); Mean Corpuscular HGB Conc 31 gm/dL (32-36); Mean Corpuscular Hemoglobin 31 pg (26-34); Mean Corpuscular Volume 99 fL (80-100); Monocytes Percent Auto 13.8 % (0.0-11.0); Neutrophils Percent Auto 61.9 % (42.0-72.0); Platelet Count* 551 K/uL (140-440); RDW Coefficient of Variation % 15.3 % (11.5-15.5); Red Blood Count 3.07 m/uL (4.30-5.90); White Blood Count* 6.79 K/uL (4.50-11.00)
[2022-04-06 15:18] LABS: Albumin* 3.3 g/dL (3.3-5.0); Chloride* 106 mmol/L (96-114); Sodium* 137 mmol/L (135-149)
[2022-04-06 15:19] LABS: Potassium* 4.6 mmol/L (3.6-5.1)
[2022-04-06 15:21] LABS: Alkaline Phosphatase* 165 U/L (40-150); Aspartate Amino Transferase* 28 U/L (12-35); Bilirubin Total* 0.2 mg/dL (0.1-1.5); Blood Urea Nitrogen* 22 mg/dL (7-30); Carbon Dioxide* 21 mmol/L (20-32); Creatinine* 0.9 mg/dL (0.5-1.5); Estimated Glomerular Filt Rate 91 ml/min
[2022-04-06 15:22] LABS: Alanine Aminotransferase* 35 U/L (4-50); Glucose* 104 mg/dL (60-115)
[2022-04-06 15:30] LABS: Slide Review Reflex Yes
[2022-04-06 16:02] LABS: Slide Review Acceptable Review (Acceptable)
--- NOTE | 2022-04-14 11:02 | ONC.NURNOTE ---
Alise called about option of an antidepressant for Bran- this was discussed with Dr Sy yesterday and this would need to be discussed with PCP- Revlimid started day of appt with Ann Russo- reporting diarrhea they have picked up imodium and discussed dosing to manage and to let us know if not controlled with imodium- if watery stools continue
--- NOTE | 2022-04-14 13:55 | URNOTE ---
[facility] ([id number]). Pt has Medicare primary. Prior authorization is not required as services are based on medical necessity and follow medicare guidelines.
--- NOTE | 2022-04-20 15:00 | ONC.NURNOTE ---
Clarification of plan with Alise/ -Bran to restart the Bactrim and Acyclovir Dex plan explained to - will take the 40 mg dose the day after the injection each week bring binder to appt and bring Revlimid
[2022-04-26 11:42] LABS: Basophils Absolute Auto 0.06 K/uL (0.00-0.30); Basophils Percent Auto 0.8 % (0.0-3.0); Eosinophils Absolute Auto 0.03 K/uL (0.00-0.50); Eosinophils Percent Auto 0.4 % (0.0-7.0); Hematocrit 34.1 % (37.0-53.0); Hemoglobin* 10.7 gm/dL (13.5-17.5); Immature Granulocytes Abs Auto 0.02 K/uL (0.00-0.30); Lymphocytes Absolute Auto 1.56 K/uL (0.90-2.90); Lymphocytes Percent Auto 21.5 % (20-44); Mean Corpuscular HGB Conc 31 gm/dL (32-36); Mean Corpuscular Hemoglobin 30 pg (26-34); Mean Corpuscular Volume 97 fL (80-100); Monocytes Percent Auto 9.2 % (0.0-11.0); Neutrophils Absolute Auto 4.91 K/uL (1.7-7.0); Neutrophils Percent Auto 67.8 % (42.0-72.0); Platelet Count* 178 K/uL (140-440); RDW Coefficient of Variation % 16.7 % (11.5-15.5); Red Blood Count 3.52 m/uL (4.30-5.90); White Blood Count* 7.25 K/uL (4.50-11.00)
[2022-04-26 11:46] VITALS: BP 105/66; PULSE 55; RESP 16; TEMP 36.6; O2SAT 97
[2022-04-26 11:51] LABS: Slide Review Reflex No
[2022-04-26 11:58] LABS: Albumin* 3.6 g/dL (3.3-5.0); Chloride* 104 mmol/L (96-114); Sodium* 137 mmol/L (135-149)
[2022-04-26 11:59] LABS: Potassium* 4.5 mmol/L (3.6-5.1)
[2022-04-26 12:01] LABS: Alanine Aminotransferase* 31 U/L (4-50); Alkaline Phosphatase* 83 U/L (40-150); Aspartate Amino Transferase* 28 U/L (12-35); Bilirubin Total* 0.4 mg/dL (0.1-1.5); Blood Urea Nitrogen* 24 mg/dL (7-30); Calcium* 8.9 mg/dL (8.4-10.6); Carbon Dioxide* 22 mmol/L (20-32); Creatinine* 1.1 mg/dL (0.5-1.5); Estimated Glomerular Filt Rate 72 ml/min; Glucose* 109 mg/dL (60-115); Total Protein* 8.8 g/dL (6.0-8.3)
[2022-04-26] MEDS: dexAMETHasone 20 MG in 0.9 % SODIUM CHLORIDE 100 ml 100 ML 408 MG IVPB (13:03)
[2022-04-26] MEDS: ACETAMINOPHEN 325 MG TABLET 650 MG PO (13:07)
[2022-04-26] MEDS: MONTELUKAST 10 MG TABLET PO (13:07)
[2022-04-26] MEDS: diphenhydrAMINE 50 MG in 0.9 % SODIUM CHLORIDE 100 ml 100 ML 404 MG IVPB (13:25)
[2022-04-26] MEDS: DARATUMUMAB-HYALURONIDASE-FIHJ 15 ML SUBCUT (14:05)
--- NOTE | 2022-04-26 16:25 | ONC.NURNOTE ---
Pt tolerated C1D1 darzalex faspro without difficulty. Pt observed for 2 hours. No rash present. RN to call pt tomorrow to follow up 1st Darzalex.
--- NOTE | 2022-04-27 08:55 | ONC.NURNOTE ---
Called pt to f/u 1st day after Darzalex FasPro. Pt is feeling well; no redness, itching or tenderness at injection site. He will call us with any questions/concerns.
[2022-05-03 11:38] VITALS: BP 125/79; PULSE 53; RESP 16; TEMP 36.6; O2SAT 96
[2022-05-03 11:39] LABS: Basophils Percent Auto 0.7 % (0.0-3.0); Eosinophils Percent Auto 0.5 % (0.0-7.0); Hematocrit 35.1 % (37.0-53.0); Hemoglobin* 11.2 gm/dL (13.5-17.5); Lymphocytes Percent Auto 16.3 % (20-44); Mean Corpuscular HGB Conc 32 gm/dL (32-36); Mean Corpuscular Hemoglobin 30 pg (26-34); Mean Corpuscular Volume 95 fL (80-100); Monocytes Percent Auto 6.1 % (0.0-11.0); Neutrophils Percent Auto 76.4 % (42.0-72.0); Platelet Count* 177 K/uL (140-440); RDW Coefficient of Variation % 17.7 % (11.5-15.5); Red Blood Count 3.69 m/uL (4.30-5.90)
[2022-05-03 11:46] LABS: Slide Review Reflex No
[2022-05-03 11:48] LABS: White Blood Count* 4.11 K/uL (4.50-11.00)
[2022-05-03 11:54] LABS: Albumin* 3.8 g/dL (3.3-5.0); Chloride* 101 mmol/L (96-114)
[2022-05-03 11:55] LABS: Potassium* 4.5 mmol/L (3.6-5.1); Sodium* 134 mmol/L (135-149)
[2022-05-03 11:57] LABS: Aspartate Amino Transferase* 25 U/L (12-35); Bilirubin Total* 0.6 mg/dL (0.1-1.5); Carbon Dioxide* 24 mmol/L (20-32); Estimated Glomerular Filt Rate 80 ml/min; Total Protein* 8.9 g/dL (6.0-8.3)
[2022-05-03 11:58] LABS: Alanine Aminotransferase* 27 U/L (4-50); Alkaline Phosphatase* 81 U/L (40-150); Blood Urea Nitrogen* 22 mg/dL (7-30); Calcium* 9.2 mg/dL (8.4-10.6); Glucose* 88 mg/dL (60-115)
[2022-05-03] MEDS: ACETAMINOPHEN 325 MG TABLET 650 MG PO (12:17)
[2022-05-03] MEDS: diphenhydrAMINE 50 MG in 0.9 % SODIUM CHLORIDE 100 ml 100 ML 404 MG IVPB (12:37)
[2022-05-03] MEDS: dexAMETHasone 20 MG in 0.9 % SODIUM CHLORIDE 100 ml 100 ML 408 MG IVPB (12:58)
[2022-05-03] MEDS: DARATUMUMAB-HYALURONIDASE-FIHJ 15 ML SUBCUT (13:38)
[2022-05-10 11:30] VITALS: BP 114/78; PULSE 62; RESP 16; TEMP 36.6; O2SAT 95
[2022-05-10 12:56] LABS: Hematocrit 35.2 % (37.0-53.0); Hemoglobin* 11.3 gm/dL (13.5-17.5); Lymphocytes Percent Auto 17.6 % (20-44); Mean Corpuscular HGB Conc 32 gm/dL (32-36); Mean Corpuscular Hemoglobin 30 pg (26-34); Mean Corpuscular Volume 94 fL (80-100); Monocytes Percent Auto 16.3 % (0.0-11.0); Neutrophils Percent Auto 65.1 % (42.0-72.0); Platelet Count* 157 K/uL (140-440); RDW Coefficient of Variation % 17.2 % (11.5-15.5); Red Blood Count 3.73 m/uL (4.30-5.90); White Blood Count* 3.07 K/uL (4.50-11.00)
[2022-05-10 13:05] LABS: Albumin* 3.9 g/dL (3.3-5.0); Chloride* 102 mmol/L (96-114)
[2022-05-10 13:06] LABS: Potassium* 4.2 mmol/L (3.6-5.1); Slide Review Reflex No; Sodium* 135 mmol/L (135-149)
[2022-05-10 13:08] LABS: Alkaline Phosphatase* 78 U/L (40-150); Aspartate Amino Transferase* 27 U/L (12-35); Bilirubin Total* 0.7 mg/dL (0.1-1.5); Blood Urea Nitrogen* 19 mg/dL (7-30); Carbon Dioxide* 21 mmol/L (20-32); Creatinine* 0.8 mg/dL (0.5-1.5); Estimated Glomerular Filt Rate 95 ml/min; Total Protein* 8.2 g/dL (6.0-8.3)
[2022-05-10 13:09] LABS: Alanine Aminotransferase* 25 U/L (4-50); Calcium* 8.8 mg/dL (8.4-10.6); Glucose* 89 mg/dL (60-115)
[2022-05-10] MEDS: dexAMETHasone 20 MG in 0.9 % SODIUM CHLORIDE 100 ml 100 ML 408 MG IVPB (13:20)
[2022-05-10] MEDS: ACETAMINOPHEN 325 MG TABLET 650 MG PO (13:45)
[2022-05-10] MEDS: diphenhydrAMINE 50 MG in 0.9 % SODIUM CHLORIDE 100 ml 100 ML 404 MG IVPB (14:25)
[2022-05-10] MEDS: DARATUMUMAB-HYALURONIDASE-FIHJ 15 ML SUBCUT (14:50)
[2022-05-17 11:41] VITALS: BP 116/74; PULSE 60; RESP 16; TEMP 36.5; O2SAT 97
[2022-05-17 11:41] LABS: Eosinophils Percent Auto 14.4 % (0.0-7.0); Hematocrit 34.3 % (37.0-53.0); Lymphocytes Percent Auto 23.8 % (20-44); Mean Corpuscular HGB Conc 32 gm/dL (32-36); Mean Corpuscular Hemoglobin 31 pg (26-34); Mean Corpuscular Volume 96 fL (80-100); Monocytes Percent Auto 19.4 % (0.0-11.0); Neutrophils Percent Auto 42.4 % (42.0-72.0); Platelet Count* 106 K/uL (140-440); RDW Coefficient of Variation % 18.2 % (11.5-15.5); Red Blood Count 3.58 m/uL (4.30-5.90)
[2022-05-17 11:50] LABS: Albumin* 3.8 g/dL (3.3-5.0); Chloride* 100 mmol/L (96-114); Potassium* 4.4 mmol/L (3.6-5.1); Sodium* 133 mmol/L (135-149)
[2022-05-17 11:52] LABS: Bilirubin Total* 0.8 mg/dL (0.1-1.5); Creatinine* 0.9 mg/dL (0.5-1.5); Estimated Glomerular Filt Rate 91 ml/min
[2022-05-17 11:53] LABS: Alanine Aminotransferase* 28 U/L (4-50); Alkaline Phosphatase* 66 U/L (40-150); Aspartate Amino Transferase* 26 U/L (12-35); Blood Urea Nitrogen* 19 mg/dL (7-30); Calcium* 8.8 mg/dL (8.4-10.6); Carbon Dioxide* 25 mmol/L (20-32); Glucose* 92 mg/dL (60-115); Total Protein* 7.5 g/dL (6.0-8.3)
[2022-05-17 12:20] LABS: Slide Review Reflex No
--- NOTE | 2022-05-17 16:13 | ONC.NURNOTE ---
Nursing Education Consultant let patient know that WBC and ANC too low for treatment today. Nursing Education Consultant talked with Dr. Kulkarni who wanted treatment held today and then patient is already on Dr. kulkarni's schedule for next week. Patient given information on neutropenia and underwriter solicitation director went over labs and precautions related to neutropenia. Patient to bring in Dexamethasone next week and not to take any Revlimid until MD appointment. Only had one day left of Revlimid then on his week off.
[2022-05-24 10:37] LABS: Basophils Percent Auto 0.8 % (0.0-3.0); Eosinophils Percent Auto 4.6 % (0.0-7.0); Hematocrit 34.4 % (37.0-53.0); Hemoglobin* 10.9 gm/dL (13.5-17.5); Lymphocytes Percent Auto 44.6 % (20-44); Mean Corpuscular HGB Conc 32 gm/dL (32-36); Mean Corpuscular Hemoglobin 31 pg (26-34); Mean Corpuscular Volume 97 fL (80-100); Platelet Count* 273 K/uL (140-440); Red Blood Count 3.55 m/uL (4.30-5.90)
[2022-05-24 10:42] LABS: Slide Review Reflex No
[2022-05-24 10:45] LABS: Albumin* 3.7 g/dL (3.3-5.0); Chloride* 103 mmol/L (96-114); Sodium* 134 mmol/L (135-149)
[2022-05-24 10:46] LABS: Potassium* 4.5 mmol/L (3.6-5.1)
[2022-05-24 10:48] LABS: Alanine Aminotransferase* 25 U/L (4-50); Alkaline Phosphatase* 63 U/L (40-150); Aspartate Amino Transferase* 27 U/L (12-35); Bilirubin Total* 0.4 mg/dL (0.1-1.5); Blood Urea Nitrogen* 21 mg/dL (7-30); Carbon Dioxide* 23 mmol/L (20-32); Creatinine* 0.9 mg/dL (0.5-1.5); Estimated Glomerular Filt Rate 91 ml/min; Glucose* 92 mg/dL (60-115); Total Protein* 7.3 g/dL (6.0-8.3)
[2022-05-24 10:49] LABS: Calcium* 8.7 mg/dL (8.4-10.6)
--- NOTE | 2022-05-26 14:05 | URNOTE ---
Request received for authorization for [employer] ([id number]). Prior Authorization is not required as services are based on medical necessity and follow Medicare guidelines.
[2022-05-30 08:59] LABS: Basophils Percent Auto 1.8 % (0.0-3.0); Eosinophils Percent Auto 0.4 % (0.0-7.0); Hematocrit 37.6 % (37.0-53.0); Immature Granulocytes Abs Auto 0.01 K/uL (0.00-0.30); Lymphocytes Percent Auto 33.5 % (20-44); Mean Corpuscular HGB Conc 32 gm/dL (32-36); Mean Corpuscular Hemoglobin 31 pg (26-34); Mean Corpuscular Volume 97 fL (80-100); Monocytes Percent Auto 14.7 % (0.0-11.0); Neutrophils Percent Auto 49.2 % (42.0-72.0); Platelet Count* 296 K/uL (140-440); RDW Coefficient of Variation % 18.7 % (11.5-15.5); Red Blood Count 3.89 m/uL (4.30-5.90); White Blood Count* 2.72 K/uL (4.50-11.00)
[2022-05-30 09:07] LABS: Slide Review Reflex No
[2022-05-30 09:35] LABS: Chloride* 105 mmol/L (96-114)
[2022-05-30 09:36] LABS: Potassium* 4.1 mmol/L (3.6-5.1); Sodium* 135 mmol/L (135-149)
[2022-05-30 09:38] LABS: Aspartate Amino Transferase* 48 U/L (12-35); Bilirubin Total* 0.5 mg/dL (0.1-1.5); Carbon Dioxide* 22 mmol/L (20-32); Creatinine* 0.8 mg/dL (0.5-1.5); Estimated Glomerular Filt Rate 95 ml/min
[2022-05-30 09:39] LABS: Alanine Aminotransferase* 25 U/L (4-50); Alkaline Phosphatase* 78 U/L (40-150); Blood Urea Nitrogen* 22 mg/dL (7-30); Calcium* 9.5 mg/dL (8.4-10.6); Glucose* 102 mg/dL (60-115); Total Protein* 7.7 g/dL (6.0-8.3)
[2022-05-31 11:23] VITALS: BP 137/79; PULSE 59; RESP 16; TEMP 36.3; O2SAT 96
[2022-05-31] MEDS: ACETAMINOPHEN 325 MG TABLET 650 MG PO (12:04)
[2022-05-31] MEDS: dexAMETHasone 4 MG TABLET 40 MG PO (12:04)
[2022-05-31] MEDS: diphenhydrAMINE 25 MG CAPSULE 50 MG PO (12:05)
[2022-05-31] MEDS: DARATUMUMAB-HYALURONIDASE-FIHJ 15 ML SUBCUT (12:45)
[2022-06-07 09:08] LABS: Basophils Absolute Auto 0.02 K/uL (0.00-0.30); Basophils Percent Auto 0.3 % (0.0-3.0); Hematocrit 37.6 % (37.0-53.0); Immature Granulocytes Abs Auto 0.03 K/uL (0.00-0.30); Lymphocytes Percent Auto 6.7 % (20-44); Mean Corpuscular HGB Conc 32 gm/dL (32-36); Mean Corpuscular Hemoglobin 31 pg (26-34); Mean Corpuscular Volume 98 fL (80-100); Monocytes Percent Auto 4.3 % (0.0-11.0); Neutrophils Percent Auto 88.3 % (42.0-72.0); Platelet Count* 185 K/uL (140-440); Red Blood Count 3.82 m/uL (4.30-5.90); White Blood Count* 7.51 K/uL (4.50-11.00)
[2022-06-07 09:30] LABS: Slide Review Reflex No
[2022-06-07 09:33] LABS: Albumin* 3.9 g/dL (3.3-5.0); Chloride* 102 mmol/L (96-114); Potassium* 4.4 mmol/L (3.6-5.1); Sodium* 136 mmol/L (135-149)
[2022-06-07 09:34] VITALS: BP 115/71; PULSE 68; RESP 16; TEMP 36.8; O2SAT 96
[2022-06-07 09:35] LABS: Bilirubin Total* 0.5 mg/dL (0.1-1.5); Creatinine* 0.7 mg/dL (0.5-1.5); Estimated Glomerular Filt Rate 99 ml/min
[2022-06-07 09:36] LABS: Alanine Aminotransferase* 22 U/L (4-50); Alkaline Phosphatase* 93 U/L (40-150); Aspartate Amino Transferase* 24 U/L (12-35); Blood Urea Nitrogen* 17 mg/dL (7-30); Calcium* 9.1 mg/dL (8.4-10.6); Carbon Dioxide* 26 mmol/L (20-32); Glucose* 93 mg/dL (60-115); Total Protein* 7.6 g/dL (6.0-8.3)
[2022-06-07] MEDS: diphenhydrAMINE 25 MG CAPSULE 50 MG PO (09:42)
[2022-06-07] MEDS: ACETAMINOPHEN 325 MG TABLET 650 MG PO (09:43)
[2022-06-07] MEDS: DARATUMUMAB-HYALURONIDASE-FIHJ 15 ML SUBCUT (10:19)
[2022-06-14 09:10] LABS: Basophils Absolute Auto 0.01 K/uL (0.00-0.30); Basophils Percent Auto 0.1 % (0.0-3.0); Eosinophils Absolute Auto 0.02 K/uL (0.00-0.50); Eosinophils Percent Auto 0.3 % (0.0-7.0); Hematocrit 38.8 % (37.0-53.0); Hemoglobin* 12.5 gm/dL (13.5-17.5); Immature Granulocytes Abs Auto 0.02 K/uL (0.00-0.30); Lymphocytes Percent Auto 7.1 % (20-44); Mean Corpuscular HGB Conc 32 gm/dL (32-36); Mean Corpuscular Hemoglobin 31 pg (26-34); Mean Corpuscular Volume 98 fL (80-100); Monocytes Percent Auto 11.8 % (0.0-11.0); Neutrophils Percent Auto 80.4 % (42.0-72.0); Platelet Count* 116 K/uL (140-440); RDW Coefficient of Variation % 19.4 % (11.5-15.5); Red Blood Count 3.98 m/uL (4.30-5.90); White Blood Count* 7.85 K/uL (4.50-11.00)
[2022-06-14 09:18] LABS: Slide Review Reflex No
[2022-06-14 09:24] VITALS: BP 104/69; PULSE 62; RESP 18; TEMP 36.6; O2SAT 100
[2022-06-14 09:27] LABS: Albumin* 3.7 g/dL (3.3-5.0); Chloride* 102 mmol/L (96-114); Potassium* 3.9 mmol/L (3.6-5.1); Sodium* 135 mmol/L (135-149)
[2022-06-14 09:29] LABS: Bilirubin Total* 0.6 mg/dL (0.1-1.5); Carbon Dioxide* 26 mmol/L (20-32); Creatinine* 0.9 mg/dL (0.5-1.5); Est. Creatinine Clearance* 58.94; Estimated Glomerular Filt Rate 91 ml/min
[2022-06-14 09:30] LABS: Alanine Aminotransferase* 26 U/L (4-50); Alkaline Phosphatase* 62 U/L (40-150); Aspartate Amino Transferase* 31 U/L (12-35); Blood Urea Nitrogen* 15 mg/dL (7-30); Calcium* 8.7 mg/dL (8.4-10.6); Glucose* 87 mg/dL (60-115)
--- NOTE | 2022-06-14 10:36 | PC.NURSE ---
Bran was present at [facility] today for an injection and reported a new rash on abdomen and RIGHT thigh. RN assessed the skin with pt's permission and noted a faint scattered red rash across his lower abdomen and down his RIGHT leg. RN also noted what appeared to be a yeast rash in his groin folds. The reddened areas in the groin had a different appearance from the other areas mentioned. Reported to [facility] RN colleagues, two of which also assessed the rash. It was r noted that the rash was covering the entire trunk area; chest, abdomen, and back. It was decided to withhold treatment today and have pt see MD tomorrow. Bran is scheduled to see Dr. Sy tomorrow, 06/15/2022 and he was called with the appt info by MERCEDES Orta. Support offered. Pt verbalized his disdain for the Revlimid and is hoping he can stop taking it. Active listening offered.
[2022-06-15 12:00] VITALS: TEMP 36.1
[2022-06-15] MEDS: ACETAMINOPHEN 325 MG TABLET 650 MG PO (12:00)
[2022-06-15] MEDS: dexAMETHasone 20 MG in 0.9 % SODIUM CHLORIDE 100 ml 100 ML 306 MG IVPB (12:02)
[2022-06-15] MEDS: diphenhydrAMINE 25 MG CAPSULE 50 MG PO (12:02)
[2022-06-15] MEDS: DARATUMUMAB-HYALURONIDASE-FIHJ 15 ML SUBCUT (12:29)
[2022-06-21 09:09] VITALS: BP 129/80; PULSE 67; RESP 16; TEMP 36.4; O2SAT 98
[2022-06-21 09:10] LABS: Basophils Absolute Auto 0.02 K/uL (0.00-0.30); Basophils Percent Auto 0.4 % (0.0-3.0); Eosinophils Absolute Auto 0.01 K/uL (0.00-0.50); Eosinophils Percent Auto 0.2 % (0.0-7.0); Hematocrit 39.6 % (37.0-53.0); Hemoglobin* 12.8 gm/dL (13.5-17.5); Lymphocytes Absolute Auto 1.18 K/uL (0.90-2.90); Lymphocytes Percent Auto 23.1 % (20-44); Mean Corpuscular HGB Conc 32 gm/dL (32-36); Mean Corpuscular Hemoglobin 32 pg (26-34); Mean Corpuscular Volume 99 fL (80-100); Neutrophils Absolute Auto 2.92 K/uL (1.7-7.0); Neutrophils Percent Auto 57.3 % (42.0-72.0); Platelet Count* 206 K/uL (140-440); RDW Coefficient of Variation % 19.6 % (11.5-15.5); Red Blood Count 4.01 m/uL (4.30-5.90)
[2022-06-21 09:13] LABS: Slide Review Reflex No
[2022-06-21 09:23] LABS: Albumin* 4.1 g/dL (3.3-5.0); Chloride* 104 mmol/L (96-114); Sodium* 136 mmol/L (135-149)
[2022-06-21 09:26] LABS: Alanine Aminotransferase* 31 U/L (4-50); Alkaline Phosphatase* 68 U/L (40-150); Aspartate Amino Transferase* 26 U/L (12-35); Bilirubin Total* 0.6 mg/dL (0.1-1.5); Blood Urea Nitrogen* 20 mg/dL (7-30); Carbon Dioxide* 24 mmol/L (20-32); Creatinine* 0.8 mg/dL (0.5-1.5); Est. Creatinine Clearance* 58.94; Estimated Glomerular Filt Rate 95 ml/min; Glucose* 93 mg/dL (60-115); Total Protein* 7.7 g/dL (6.0-8.3)
[2022-06-21] MEDS: dexAMETHasone 4 MG TABLET 40 MG PO (10:00)
[2022-06-21] MEDS: diphenhydrAMINE 25 MG CAPSULE 50 MG PO (10:14)
[2022-06-21] MEDS: ACETAMINOPHEN 325 MG TABLET 650 MG PO (10:14)
[2022-06-21] MEDS: ZOLEDRONIC ACID 4 MG in 0.9 % SODIUM CHLORIDE 100 ml 100 ML 420 MG IVPB (10:37)
[2022-06-21] MEDS: DARATUMUMAB-HYALURONIDASE-FIHJ 15 ML SUBCUT (11:24)
[2022-06-28 09:39] LABS: Basophils Absolute Auto 0.03 K/uL (0.00-0.30); Basophils Percent Auto 0.6 % (0.0-3.0); Eosinophils Absolute Auto 0.01 K/uL (0.00-0.50); Eosinophils Percent Auto 0.2 % (0.0-7.0); Hemoglobin* 11.8 gm/dL (13.5-17.5); Immature Granulocytes Abs Auto 0.01 K/uL (0.00-0.30); Lymphocytes Percent Auto 9.2 % (20-44); Mean Corpuscular HGB Conc 32 gm/dL (32-36); Mean Corpuscular Hemoglobin 32 pg (26-34); Mean Corpuscular Volume 100 fL (80-100); Monocytes Percent Auto 6.2 % (0.0-11.0); Neutrophils Percent Auto 83.6 % (42.0-72.0); Platelet Count* 257 K/uL (140-440); RDW Coefficient of Variation % 19.3 % (11.5-15.5); Red Blood Count 3.72 m/uL (4.30-5.90)
[2022-06-28 09:40] VITALS: BP 117/57; PULSE 97; RESP 16; TEMP 36.8; O2SAT 97
[2022-06-28 09:45] LABS: Slide Review Reflex No
[2022-06-28 09:50] LABS: Albumin* 3.8 g/dL (3.3-5.0); Chloride* 103 mmol/L (96-114); Potassium* 4.2 mmol/L (3.6-5.1); Sodium* 136 mmol/L (135-149)
[2022-06-28 09:52] LABS: Bilirubin Total* 0.4 mg/dL (0.1-1.5); Creatinine* 0.9 mg/dL (0.5-1.5); Est. Creatinine Clearance* 58.94; Estimated Glomerular Filt Rate 91 ml/min
[2022-06-28 09:53] LABS: Alanine Aminotransferase* 21 U/L (4-50); Alkaline Phosphatase* 59 U/L (40-150); Aspartate Amino Transferase* 25 U/L (12-35); Blood Urea Nitrogen* 16 mg/dL (7-30); Carbon Dioxide* 26 mmol/L (20-32); Glucose* 86 mg/dL (60-115); Total Protein* 7.1 g/dL (6.0-8.3)
[2022-06-28] MEDS: ACETAMINOPHEN 325 MG TABLET 650 MG PO (10:44)
[2022-06-28] MEDS: diphenhydrAMINE 25 MG CAPSULE 50 MG PO (10:45)
[2022-06-28] MEDS: DARATUMUMAB-HYALURONIDASE-FIHJ 15 ML SUBCUT (11:35)
[2022-06-29 09:08] LABS: Calcium* 8.9 mg/dL (8.4-10.6)
[2022-07-05 09:28] VITALS: BP 127/62; PULSE 62; RESP 16; TEMP 37; O2SAT 99
[2022-07-05 09:49] LABS: Basophils Absolute Auto 0.02 K/uL (0.00-0.30); Basophils Percent Auto 0.3 % (0.0-3.0); Hematocrit 37.8 % (37.0-53.0); Hemoglobin* 12.2 gm/dL (13.5-17.5); Immature Granulocytes Abs Auto 0.01 K/uL (0.00-0.30); Lymphocytes Percent Auto 7.5 % (20-44); Mean Corpuscular HGB Conc 32 gm/dL (32-36); Mean Corpuscular Hemoglobin 32 pg (26-34); Mean Corpuscular Volume 99 fL (80-100); Monocytes Percent Auto 9.7 % (0.0-11.0); Neutrophils Percent Auto 82.3 % (42.0-72.0); Platelet Count* 147 K/uL (140-440); RDW Coefficient of Variation % 19.1 % (11.5-15.5); Red Blood Count 3.81 m/uL (4.30-5.90); White Blood Count* 6.38 K/uL (4.50-11.00)
[2022-07-05 10:05] LABS: Albumin* 3.4 g/dL (3.3-5.0); Chloride* 103 mmol/L (96-114); Potassium* 3.9 mmol/L (3.6-5.1); Slide Review Reflex No; Sodium* 135 mmol/L (135-149)
[2022-07-05 10:07] LABS: Creatinine* 0.9 mg/dL (0.5-1.5); Est. Creatinine Clearance* 58.94; Estimated Glomerular Filt Rate 91 ml/min
[2022-07-05 10:08] LABS: Alanine Aminotransferase* 34 U/L (4-50); Alkaline Phosphatase* 53 U/L (40-150); Aspartate Amino Transferase* 30 U/L (12-35); Bilirubin Total* 0.5 mg/dL (0.1-1.5); Blood Urea Nitrogen* 17 mg/dL (7-30); Carbon Dioxide* 25 mmol/L (20-32); Glucose* 77 mg/dL (60-115); Total Protein* 6.1 g/dL (6.0-8.3)
[2022-07-05 10:09] LABS: Calcium* 8.6 mg/dL (8.4-10.6)
--- NOTE | 2022-07-05 11:08 | PC.NURSE ---
Pt presents to [facility] for labs and injection. Upon assessing pt, it was shared that he had a full body rash. Vitals, chart review, and full assessment done. Reported to Ann Herring APRN who saw and evaluated pt personally. See her documentation for details. No treatment given today. Pt will return next week for ERIN follow-up and injection. Bran will see Dr. Sy the following week. Support offered.
[2022-07-12 09:30] VITALS: BP 138/82; PULSE 56; RESP 16; TEMP 36; O2SAT 100
[2022-07-12 09:54] LABS: Eosinophils Percent Auto 7.5 % (0.0-7.0); Hematocrit 36.8 % (37.0-53.0); Hemoglobin* 11.8 gm/dL (13.5-17.5); Immature Granulocytes Pct Auto 0.2 %; Mean Corpuscular HGB Conc 32 gm/dL (32-36); Mean Corpuscular Hemoglobin 33 pg (26-34); Mean Corpuscular Volume 101 fL (80-100); Monocytes Percent Auto 16.8 % (0.0-11.0); Neutrophils Percent Auto 48.5 % (42.0-72.0); Platelet Count* 141 K/uL (140-440); RDW Coefficient of Variation % 19.2 % (11.5-15.5); Red Blood Count 3.63 m/uL (4.30-5.90); White Blood Count* 4.16 K/uL (4.50-11.00)
[2022-07-12 10:05] LABS: Slide Review Reflex No
[2022-07-12 10:07] LABS: Albumin* 3.8 g/dL (3.3-5.0); Chloride* 105 mmol/L (96-114); Potassium* 4.4 mmol/L (3.6-5.1); Sodium* 138 mmol/L (135-149)
[2022-07-12 10:09] LABS: Creatinine* 0.8 mg/dL (0.5-1.5); Est. Creatinine Clearance* 58.94; Estimated Glomerular Filt Rate 95 ml/min
[2022-07-12 10:10] LABS: Alanine Aminotransferase* 34 U/L (4-50); Alkaline Phosphatase* 56 U/L (40-150); Aspartate Amino Transferase* 27 U/L (12-35); Bilirubin Total* 0.4 mg/dL (0.1-1.5); Blood Urea Nitrogen* 21 mg/dL (7-30); Carbon Dioxide* 24 mmol/L (20-32); Glucose* 79 mg/dL (60-115)
[2022-07-12 10:11] LABS: Calcium* 8.6 mg/dL (8.4-10.6)
[2022-07-12] MEDS: ACETAMINOPHEN 325 MG TABLET 650 MG PO (10:59)
[2022-07-12] MEDS: diphenhydrAMINE 25 MG CAPSULE 50 MG PO (11:00)
[2022-07-12] MEDS: DARATUMUMAB-HYALURONIDASE-FIHJ 15 ML SUBCUT (11:38)
--- NOTE | 2022-07-12 16:21 | ONC.NURNOTE ---
Rash gone-patient in to see MD on Monday07/20/22 and will bring in 24 hour urine jug in next few days
[2022-07-15 10:48] LABS: Albumin 3.25 g/dL (3.75-5.01); Alpha 1 Globulin 0.38 g/dL (0.19-0.46); Alpha 2 Globulin 0.61 g/dL (0.48-1.05); Immunofixation IFE Done; Immunoglobulin A 1557 mg/dL (68-408); Immunoglobulin G 304 mg/dL (768-1632); Immunoglobulin M <10 mg/dL (35-263); Kappa Qnt Free Light Chains 4.78 mg/L (3.30-19.40); Kappa/Lambda Light Chain Ratio 0.06 (0.26-1.65); Lambda Qnt Free Light Chains 79.43 mg/L (5.71-26.30); Monoclonal Protein 1.33 g/dL; Total Protein, Serum 6.6 g/dL (6.3-8.2)
[2022-07-16 06:27] LABS: Free Urinary Kappa Excret/Day 6.93 mg/d; Free Urinary Lambda Excr/Day 5.19 mg/d; Free Urine Kappa Light Chains 3.15 mg/L (0.00-32.90); Free Urine LAmbda Light Chains 2.36 mg/L (0.00-3.79); Hours Collected 24 hr; Total Volume 2200 mL
[2022-07-20 11:56] LABS: Basophils Absolute Auto 0.04 K/uL (0.00-0.30); Basophils Percent Auto 0.9 % (0.0-3.0); Eosinophils Absolute Auto 0.01 K/uL (0.00-0.50); Eosinophils Percent Auto 0.2 % (0.0-7.0); Hematocrit 39.5 % (37.0-53.0); Hemoglobin* 12.6 gm/dL (13.5-17.5); Lymphocytes Absolute Auto 1.02 K/uL (0.90-2.90); Lymphocytes Percent Auto 22.1 % (20-44); Mean Corpuscular HGB Conc 32 gm/dL (32-36); Mean Corpuscular Hemoglobin 32 pg (26-34); Mean Corpuscular Volume 102 fL (80-100); Monocytes Percent Auto 10.6 % (0.0-11.0); Neutrophils Absolute Auto 3.05 K/uL (1.7-7.0); Neutrophils Percent Auto 66.2 % (42.0-72.0); Platelet Count* 271 K/uL (140-440); RDW Coefficient of Variation % 18.4 % (11.5-15.5); Red Blood Count 3.89 m/uL (4.30-5.90); White Blood Count* 4.61 K/uL (4.50-11.00)
[2022-07-20 12:02] LABS: Slide Review Reflex No
[2022-07-20 12:03] LABS: Chloride* 108 mmol/L (96-114); Sodium* 139 mmol/L (135-149)
[2022-07-20 12:04] LABS: Potassium* 4.6 mmol/L (3.6-5.1)
[2022-07-20 12:06] LABS: Alanine Aminotransferase* 30 U/L (4-50); Alkaline Phosphatase* 65 U/L (40-150); Aspartate Amino Transferase* 29 U/L (12-35); Bilirubin Total* 0.5 mg/dL (0.1-1.5); Blood Urea Nitrogen* 19 mg/dL (7-30); Carbon Dioxide* 24 mmol/L (20-32); Creatinine* 0.9 mg/dL (0.5-1.5); Est. Creatinine Clearance* 58.94; Estimated Glomerular Filt Rate 91 ml/min; Glucose* 83 mg/dL (60-115); Total Protein* 7.5 g/dL (6.0-8.3)
[2022-07-20 12:07] LABS: Calcium* 9.3 mg/dL (8.4-10.6)
--- NOTE | 2022-07-20 16:05 | ONC.NURNOTE ---
Received call back from [facility] hematology office stating patient to stop all chemo by 07/24/2022- 2 weeks prior to his visit there. Patient called and given information and he states he just got the same info so he would see us post transplant.
--- NOTE | 2022-07-26 09:49 | ONC.NURNOTE ---
[facility] pastora awarded- message left on voice mail for patient and
--- NOTE | 2022-08-04 08:59 | PC.NURSE ---
Jose Mackey Pt's , Alise, called back for MERCEDES Thorne regarding the [facility] Narendra. Alise shares that they have been busy moving not received anything from Jose yet. Alise asked that Fadumo call back on Monday and use Bran's cell phone ([phone]). Will pass along the message.
== END 2022-10-03 23:59 | disposition home or self-care (01) ==
LOC: CCIC 11:59
PROVIDERS: Clinical Nurse Specialist; PCP Student in an Organized Health Care Education/Training Program; Referring Provider Student in an Organized Health Care Education/Training Program; Visit Provider Internal Medicine Hematology & Oncology
DX: D49.89 Neoplasm of unspecified behavior of other specified sites (principal); C90.00 Multiple myeloma not having achieved remission; D64.9 Anemia, unspecified; R21 Rash and other nonspecific skin eruption; T45.1X5A Adverse effect of antineoplastic and immunosuppressive drugs, initial encounter
CPT/HCPCS: 36415; 80053; 82784; 83520; 84155; 84156; 84165; 85025; 86334; 86335; 86850; 86900; 86901; 96372; 96374; 96376; 96401; 99205; 99212; 99214; 99215; J9144; A9270; J1100; J1200; J3489

== ENCOUNTER 2023-02-14 07:07 | Outpatient (CLI) | payer MEDICARE, OTHER, SELFPAY | END 2023-02-14 07:08 | disposition home or self-care (01) | LOC: INJ CL 07:07 | PROVIDERS: PCP Student in an Organized Health Care Education/Training Program; Visit Provider Family Medicine | DX: M54.16 Radiculopathy, lumbar region (principal) | CPT/HCPCS: 64483; J1100; Q9966 ==

== ENCOUNTER 2023-05-04 08:30 | Outpatient (RCR) | payer MEDICARE, OTHER, SELFPAY ==
[2022-11-10 16:06] LABS: Basophils Absolute Auto 0.01 K/uL (0.00-0.30); Basophils Percent Auto 0.2 % (0.0-3.0); Hematocrit 41.9 % (37.0-53.0); Hemoglobin* 13.5 gm/dL (13.5-17.5); Immature Granulocytes Abs Auto 0.02 K/uL (0.00-0.30); Immature Granulocytes Pct Auto 0.4 %; Lymphocytes Absolute Auto 1.16 K/uL (0.90-2.90); Lymphocytes Percent Auto 21.6 % (20-44); Mean Corpuscular HGB Conc 32 gm/dL (32-36); Mean Corpuscular Hemoglobin 32 pg (26-34); Mean Corpuscular Volume 100 fL (80-100); Monocytes Percent Auto 12.1 % (0.0-11.0); Neutrophils Absolute Auto 3.52 K/uL (1.7-7.0); Neutrophils Percent Auto 65.7 % (42.0-72.0); Platelet Count* 182 K/uL (140-440); RDW Coefficient of Variation % 14.5 % (11.5-15.5); Red Blood Count 4.18 m/uL (4.30-5.90); White Blood Count* 5.36 K/uL (4.50-11.00)
[2022-11-10 16:08] LABS: Slide Review Reflex No
[2022-11-10 16:12] LABS: Albumin* 4.5 g/dL (3.3-5.0); Chloride* 104 mmol/L (96-114)
[2022-11-10 16:13] LABS: Potassium* 4.8 mmol/L (3.6-5.1); Sodium* 135 mmol/L (135-149)
[2022-11-10 16:15] LABS: Alanine Aminotransferase* 32 U/L (4-50); Alkaline Phosphatase* 62 U/L (40-150); Aspartate Amino Transferase* 36 U/L (12-35); Bilirubin Total* 0.5 mg/dL (0.1-1.5); Blood Urea Nitrogen* 25 mg/dL (7-30); Carbon Dioxide* 24 mmol/L (20-32); Creatinine* 0.7 mg/dL (0.5-1.5); Estimated Glomerular Filt Rate 99 ml/min; Total Protein* 6.9 g/dL (6.0-8.3)
[2022-11-10 16:16] LABS: Calcium* 9.6 mg/dL (8.4-10.6); Glucose* 93 mg/dL (60-115)
--- NOTE | 2022-11-15 16:17 | ONC.NURNOTE ---
Follow up call regarding restarting Revlimid message left for patient to call
--- NOTE | 2022-11-18 11:44 | ONC.NURNOTE ---
Bran reyes - will be receiving Revlimid from [facility] on 11/21/22 will start that day 5 mg QOD with claritin
[2022-12-08 08:32] LABS: Basophils Absolute Auto 0.01 K/uL (0.00-0.30); Basophils Percent Auto 0.2 % (0.0-3.0); Eosinophils Absolute Auto 0.02 K/uL (0.00-0.50); Eosinophils Percent Auto 0.4 % (0.0-7.0); Hemoglobin* 13.4 gm/dL (13.5-17.5); Immature Granulocytes Abs Auto 0.02 K/uL (0.00-0.30); Immature Granulocytes Pct Auto 0.4 %; Lymphocytes Percent Auto 16.1 % (20-44); Mean Corpuscular HGB Conc 32 gm/dL (32-36); Mean Corpuscular Hemoglobin 31 pg (26-34); Mean Corpuscular Volume 98 fL (80-100); Monocytes Percent Auto 13.4 % (0.0-11.0); Neutrophils Absolute Auto 3.15 K/uL (1.7-7.0); Neutrophils Percent Auto 69.5 % (42.0-72.0); Platelet Count* 163 K/uL (140-440); RDW Coefficient of Variation % 14.4 % (11.5-15.5); Red Blood Count 4.27 m/uL (4.30-5.90); Slide Review Reflex No; White Blood Count* 4.54 K/uL (4.50-11.00)
[2022-12-08 08:45] LABS: Albumin* 4.1 g/dL (3.3-5.0); Chloride* 106 mmol/L (96-114); Sodium* 138 mmol/L (135-149)
[2022-12-08 08:46] LABS: Potassium* 4.1 mmol/L (3.6-5.1)
[2022-12-08 08:48] LABS: Alanine Aminotransferase* 32 U/L (4-50); Alkaline Phosphatase* 53 U/L (40-150); Aspartate Amino Transferase* 31 U/L (12-35); Bilirubin Total* 0.4 mg/dL (0.1-1.5); Blood Urea Nitrogen* 19 mg/dL (7-30); Carbon Dioxide* 28 mmol/L (20-32); Creatinine* 0.7 mg/dL (0.5-1.5); Estimated Glomerular Filt Rate 99 ml/min; Total Protein* 6.3 g/dL (6.0-8.3)
[2022-12-08 08:49] LABS: Glucose* 75 mg/dL (60-115)
--- NOTE | 2022-12-09 13:35 | ONC.NURNOTE ---
Revlimid 5mg QOD X 28 days dosing will be completed on 12/17/22
--- NOTE | 2023-01-10 13:58 | ONC.NURNOTE ---
Bran reports that he does not have any funding left in the [employer] to cover the full cost of his copay-he would be responsible for $500 of the $750 copay this casualty underwriter contacted [facility] and a patient business and financial counsel will contact Bran in the next day to review if other grants have funding for myeloma if there is no other funding then we can apply to [facility] which will take at least a week for enrollment However- casualty underwriter left decision to Bran if he wants to delay start of Revlimid by about a week or if he is comfortable paying the $500 copay for this months Revlimid and then hopefully Bran will qualify for the free drug program at [facility]
[2023-01-12 09:37] LABS: Basophils Percent Auto 0.2 % (0.0-3.0); Eosinophils Percent Auto 6.1 % (0.0-7.0); Hemoglobin* 13.9 gm/dL (13.5-17.5); Immature Granulocytes Pct Auto 0.5 %; Lymphocytes Percent Auto 24.2 % (20-44); Mean Corpuscular HGB Conc 32 gm/dL (32-36); Mean Corpuscular Hemoglobin 30 pg (26-34); Mean Corpuscular Volume 94 fL (80-100); Monocytes Percent Auto 13.6 % (0.0-11.0); Neutrophils Percent Auto 55.4 % (42.0-72.0); Platelet Count* 156 K/uL (140-440); RDW Coefficient of Variation % 14.9 % (11.5-15.5); Red Blood Count 4.67 m/uL (4.30-5.90); White Blood Count* 4.26 K/uL (4.50-11.00)
[2023-01-12 09:40] LABS: Slide Review Reflex No
--- NOTE | 2023-01-12 09:44 | ONC.NURNOTE ---
Application completed for enrollment in the [employer] for copay support for Revlimid
[2023-01-12 09:51] LABS: Albumin* 4.1 g/dL (3.3-5.0); Chloride* 107 mmol/L (96-114); Sodium* 138 mmol/L (135-149)
[2023-01-12 09:52] LABS: Potassium* 4.3 mmol/L (3.6-5.1)
[2023-01-12 09:54] LABS: Aspartate Amino Transferase* 41 U/L (12-35); Bilirubin Total* 0.5 mg/dL (0.1-1.5); Blood Urea Nitrogen* 23 mg/dL (7-30); Carbon Dioxide* 27 mmol/L (20-32); Creatinine* 0.7 mg/dL (0.5-1.5); Estimated Glomerular Filt Rate 99 ml/min
[2023-01-12 09:55] LABS: Alanine Aminotransferase* 44 U/L (4-50); Alkaline Phosphatase* 53 U/L (40-150); Calcium* 8.9 mg/dL (8.4-10.6); Glucose* 81 mg/dL (60-115)
--- NOTE | 2023-01-16 11:50 | ONC.NURNOTE ---
Enrolled in the [facility] PAF for free drug/ Revlimid thru 09/03/23 [facility] thru 09/03/23 [phone] Rx filled thru [facility] by Santhosh [phone] fax [phone]
[2023-02-09 10:38] LABS: Basophils Absolute Auto 0.03 K/uL (0.00-0.30); Basophils Percent Auto 0.6 % (0.0-3.0); Eosinophils Percent Auto 16.1 % (0.0-7.0); Hematocrit 41.4 % (37.0-53.0); Hemoglobin* 13.5 gm/dL (13.5-17.5); Immature Granulocytes Abs Auto 0.03 K/uL (0.00-0.30); Immature Granulocytes Pct Auto 0.6 %; Lymphocytes Percent Auto 14.1 % (20-44); Mean Corpuscular HGB Conc 33 gm/dL (32-36); Mean Corpuscular Hemoglobin 30 pg (26-34); Mean Corpuscular Volume 91 fL (80-100); Monocytes Percent Auto 11.6 % (0.0-11.0); Neutrophils Absolute Auto 2.91 K/uL (1.7-7.0); Platelet Count* 205 K/uL (140-440); RDW Coefficient of Variation % 16.2 % (11.5-15.5); Red Blood Count 4.54 m/uL (4.30-5.90)
[2023-02-09 11:16] LABS: Slide Review Reflex No
[2023-02-09 11:35] LABS: Albumin* 3.9 g/dL (3.3-5.0); Chloride* 106 mmol/L (96-114); Potassium* 3.7 mmol/L (3.6-5.1); Sodium* 137 mmol/L (135-149)
[2023-02-09 11:37] LABS: Bilirubin Total* 0.6 mg/dL (0.1-1.5); Carbon Dioxide* 21 mmol/L (20-32); Creatinine* 0.8 mg/dL (0.5-1.5); Estimated Glomerular Filt Rate 95 ml/min
[2023-02-09 11:38] LABS: Alanine Aminotransferase* 32 U/L (4-50); Alkaline Phosphatase* 59 U/L (40-150); Aspartate Amino Transferase* 31 U/L (12-35); Blood Urea Nitrogen* 20 mg/dL (7-30); Calcium* 9.2 mg/dL (8.4-10.6); Glucose* 92 mg/dL (60-115); Total Protein* 6.1 g/dL (6.0-8.3)
--- NOTE | 2023-02-09 13:17 | ONC.NURNOTE ---
Labs reviewed by Dr Sy and called to Bran pham and will start next cycle Revlimid on 02/13/23 24 hour urine sent in to [place] he has appt with Myeloma team on 02/22
--- NOTE | 2023-03-06 10:18 | ONC.NURNOTE ---
Patient called and states that he needs his revlamid filled. Looking at navigator note, patient is scheduled for labs and provider visit this . Patient was informed that medication will be ordered following these appointments.
[2023-03-09 08:50] LABS: Basophils Percent Auto 0.2 % (0.0-3.0); Eosinophils Percent Auto 0.2 % (0.0-7.0); Hematocrit 42.9 % (37.0-53.0); Hemoglobin* 13.9 gm/dL (13.5-17.5); Immature Granulocytes Pct Auto 0.5 %; Lymphocytes Percent Auto 19.6 % (20-44); Mean Corpuscular HGB Conc 32 gm/dL (32-36); Mean Corpuscular Hemoglobin 30 pg (26-34); Mean Corpuscular Volume 92 fL (80-100); Monocytes Percent Auto 14.3 % (0.0-11.0); Neutrophils Percent Auto 65.2 % (42.0-72.0); Platelet Count* 151 K/uL (140-440); RDW Coefficient of Variation % 16.8 % (11.5-15.5); Red Blood Count 4.65 m/uL (4.30-5.90); White Blood Count* 4.28 K/uL (4.50-11.00)
[2023-03-09 08:56] LABS: Slide Review Reflex No
[2023-03-09 09:02] LABS: Albumin* 3.9 g/dL (3.3-5.0); Chloride* 107 mmol/L (96-114); Potassium* 3.8 mmol/L (3.6-5.1); Sodium* 137 mmol/L (135-149)
[2023-03-09 09:04] LABS: Bilirubin Total* 0.6 mg/dL (0.1-1.5); Carbon Dioxide* 20 mmol/L (20-32); Creatinine* 0.7 mg/dL (0.5-1.5); Estimated Glomerular Filt Rate 98 ml/min
[2023-03-09 09:05] LABS: Alanine Aminotransferase* 40 U/L (4-50); Alkaline Phosphatase* 54 U/L (40-150); Aspartate Amino Transferase* 37 U/L (12-35); Blood Urea Nitrogen* 22 mg/dL (7-30); Glucose* 101 mg/dL (60-115)
[2023-04-06 08:21] LABS: Basophils Percent Auto 0.8 % (0.0-3.0); Hematocrit 44.1 % (37.0-53.0); Hemoglobin* 14.4 gm/dL (13.5-17.5); Immature Granulocytes Pct Auto 0.8 %; Lymphocytes Percent Auto 24.5 % (20-44); Mean Corpuscular HGB Conc 33 gm/dL (32-36); Mean Corpuscular Hemoglobin 30 pg (26-34); Mean Corpuscular Volume 93 fL (80-100); Monocytes Percent Auto 13.8 % (0.0-11.0); Neutrophils Percent Auto 52.1 % (42.0-72.0); Platelet Count* 161 K/uL (140-440); RDW Coefficient of Variation % 16.3 % (11.5-15.5); Red Blood Count 4.73 m/uL (4.30-5.90); White Blood Count* 3.76 K/uL (4.50-11.00)
[2023-04-06 08:39] LABS: Slide Review Reflex No
[2023-04-06 08:45] LABS: Albumin* 4.1 g/dL (3.3-5.0); Chloride* 108 mmol/L (96-114); Sodium* 137 mmol/L (135-149)
[2023-04-06 08:46] LABS: Potassium* 3.8 mmol/L (3.6-5.1)
[2023-04-06 08:48] LABS: Alanine Aminotransferase* 42 U/L (4-50); Alkaline Phosphatase* 51 U/L (40-150); Aspartate Amino Transferase* 38 U/L (12-35); Bilirubin Total* 0.7 mg/dL (0.1-1.5); Blood Urea Nitrogen* 19 mg/dL (7-30); Carbon Dioxide* 23 mmol/L (20-32); Creatinine* 0.8 mg/dL (0.5-1.5); Est. Creatinine Clearance* 58.08; Estimated Glomerular Filt Rate 94 ml/min; Glucose* 106 mg/dL (60-115); Total Protein* 6.2 g/dL (6.0-8.3)
[2023-05-04 08:52] LABS: Basophils Percent Auto 0.7 % (0.0-3.0); Eosinophils Percent Auto 8.9 % (0.0-7.0); Hematocrit 44.8 % (37.0-53.0); Hemoglobin* 14.3 gm/dL (13.5-17.5); Immature Granulocytes Pct Auto 0.5 %; Lymphocytes Percent Auto 23.5 % (20-44); Mean Corpuscular HGB Conc 32 gm/dL (32-36); Mean Corpuscular Hemoglobin 31 pg (26-34); Mean Corpuscular Volume 96 fL (80-100); Monocytes Percent Auto 11.3 % (0.0-11.0); Neutrophils Percent Auto 55.1 % (42.0-72.0); Platelet Count* 163 K/uL (140-440); RDW Coefficient of Variation % 15.7 % (11.5-15.5); Red Blood Count 4.66 m/uL (4.30-5.90); White Blood Count* 4.26 K/uL (4.50-11.00)
[2023-05-04 08:55] LABS: Slide Review Reflex No
[2023-05-04 09:08] LABS: Chloride* 111 mmol/L (96-114); Sodium* 139 mmol/L (135-149)
[2023-05-04 09:09] LABS: Potassium* 3.9 mmol/L (3.6-5.1)
[2023-05-04 09:11] LABS: Alanine Aminotransferase* 42 U/L (4-50); Alkaline Phosphatase* 52 U/L (40-150); Anion Gap 9 mEq/L (7-15); Aspartate Amino Transferase* 41 U/L (12-35); Bilirubin Total* 0.7 mg/dL (0.1-1.5); Blood Urea Nitrogen* 17 mg/dL (7-30); Carbon Dioxide* 19 mmol/L (20-32); Creatinine* 0.7 mg/dL (0.5-1.5); Est. Creatinine Clearance* 58.08; Estimated Glomerular Filt Rate 98 ml/min; Glucose* 99 mg/dL (60-115); Total Protein* 6.2 g/dL (6.0-8.3)
[2023-05-04 09:12] LABS: Calcium* 9.3 mg/dL (8.4-10.6)
== END 2023-05-09 23:59 | disposition home or self-care (01) ==
LOC: CCIC 08:30
PROVIDERS: Clinical Nurse Specialist; Internal Medicine Hematology & Oncology; PCP Student in an Organized Health Care Education/Training Program; Referring Provider Student in an Organized Health Care Education/Training Program; Visit Provider Internal Medicine Hematology & Oncology
DX: C90.00 Multiple myeloma not having achieved remission (principal); D49.89 Neoplasm of unspecified behavior of other specified sites
CPT/HCPCS: 36415; 80053; 85025; 99212; 99214; 99215

== ENCOUNTER 2023-11-20 09:15 | Outpatient (RCR) | payer MEDICARE, OTHER, SELFPAY ==
[2023-06-01 09:21] LABS: Albumin* 4.3 g/dL (3.3-5.0); Chloride* 104 mmol/L (96-114)
[2023-06-01 09:22] LABS: Potassium* 4.3 mmol/L (3.6-5.1); Sodium* 138 mmol/L (135-149)
[2023-06-01 09:24] LABS: Anion Gap 10 mEq/L (7-15); Aspartate Amino Transferase* 40 U/L (12-35); Bilirubin Total* 0.8 mg/dL (0.1-1.5); Carbon Dioxide* 24 mmol/L (20-32); Creatinine* 0.8 mg/dL (0.5-1.5); Estimated Glomerular Filt Rate 94 ml/min; Total Protein* 6.5 g/dL (6.0-8.3)
[2023-06-01 09:25] LABS: Alanine Aminotransferase* 45 U/L (4-50); Alkaline Phosphatase* 58 U/L (40-150); Blood Urea Nitrogen* 19 mg/dL (7-30); Calcium* 9.7 mg/dL (8.4-10.6); Glucose* 91 mg/dL (60-115)
[2023-06-01 09:31] LABS: Basophils Percent Auto 0.5 % (0.0-3.0); Eosinophils Percent Auto 8.8 % (0.0-7.0); Hematocrit 45.8 % (37.0-53.0); Hemoglobin* 15.1 gm/dL (13.5-17.5); Immature Granulocytes Pct Auto 0.5 %; Lymphocytes Percent Auto 29.1 % (20-44); Mean Corpuscular HGB Conc 33 gm/dL (32-36); Mean Corpuscular Hemoglobin 32 pg (26-34); Mean Corpuscular Volume 96 fL (80-100); Monocytes Percent Auto 13.2 % (0.0-11.0); Neutrophils Percent Auto 47.9 % (42.0-72.0); Platelet Count* 171 K/uL (140-440); RDW Coefficient of Variation % 15.2 % (11.5-15.5); Red Blood Count 4.76 m/uL (4.30-5.90); White Blood Count* 4.09 K/uL (4.50-11.00)
[2023-06-01 09:37] LABS: Slide Review Reflex No
[2023-06-09 22:08] LABS: Albumin 3.87 g/dL (3.75-5.01); Alpha 1 Globulin 0.36 g/dL (0.19-0.46); Alpha 2 Globulin 0.63 g/dL (0.48-1.05); Immunofixation IFE Done; Immunoglobulin A 15 mg/dL (68-408); Immunoglobulin G 213 mg/dL (768-1632); Immunoglobulin M 29 mg/dL (35-263); Kappa Qnt Free Light Chains 10.29 mg/L (3.30-19.40); Lambda Qnt Free Light Chains 10.25 mg/L (5.71-26.30); Total Protein, Serum 5.8 g/dL (6.3-8.2)
--- NOTE | 2023-06-15 12:31 | URNOTE ---
Received request for prior authorization for Zometa 4mg (J3489). Pt has Medicare primary. Prior authorization is not required as services are based on medical necessity and follow medicare guidelines.
[2023-06-29 09:57] LABS: Basophils Percent Auto 0.6 % (0.0-3.0); Eosinophils Percent Auto 11.7 % (0.0-7.0); Hematocrit 43.6 % (37.0-53.0); Hemoglobin* 14.4 gm/dL (13.5-17.5); Immature Granulocytes Pct Auto 0.3 %; Lymphocytes Percent Auto 28.7 % (20-44); Mean Corpuscular HGB Conc 33 gm/dL (32-36); Mean Corpuscular Hemoglobin 32 pg (26-34); Mean Corpuscular Volume 98 fL (80-100); Monocytes Percent Auto 15.8 % (0.0-11.0); Neutrophils Percent Auto 42.9 % (42.0-72.0); Platelet Count* 154 K/uL (140-440); RDW Coefficient of Variation % 14.7 % (11.5-15.5); Red Blood Count 4.45 m/uL (4.30-5.90); White Blood Count* 3.41 K/uL (4.50-11.00)
[2023-06-29 09:59] LABS: Slide Review Reflex No
[2023-06-29 10:09] VITALS: BP 113/67; PULSE 55; RESP 16; TEMP 36.2; O2SAT 95
[2023-06-29 10:21] LABS: Chloride* 109 mmol/L (96-114); Sodium* 139 mmol/L (135-149)
[2023-06-29 10:22] LABS: Potassium* 3.5 mmol/L (3.6-5.1)
[2023-06-29 10:24] LABS: Alanine Aminotransferase* 40 U/L (4-50); Alkaline Phosphatase* 57 U/L (40-150); Anion Gap 8 mEq/L (7-15); Aspartate Amino Transferase* 53 U/L (12-35); Bilirubin Total* 0.6 mg/dL (0.1-1.5); Blood Urea Nitrogen* 16 mg/dL (7-30); Carbon Dioxide* 22 mmol/L (20-32); Creatinine* 0.7 mg/dL (0.5-1.5); Est. Creatinine Clearance* 58.08; Estimated Glomerular Filt Rate 98 ml/min; Total Protein* 6.3 g/dL (6.0-8.3)
[2023-06-29 10:25] LABS: Calcium* 8.9 mg/dL (8.4-10.6); Glucose* 84 mg/dL (60-115)
[2023-06-29] MEDS: ZOLEDRONIC ACID 4 MG in 0.9 % SODIUM CHLORIDE 100 ml 100 ML 420 MG IVPB (12:05)
[2023-07-28 10:41] LABS: Basophils Percent Auto 0.2 % (0.0-3.0); Eosinophils Percent Auto 0.2 % (0.0-7.0); Hematocrit 42.7 % (37.0-53.0); Hemoglobin* 13.9 gm/dL (13.5-17.5); Immature Granulocytes Pct Auto 0.5 %; Lymphocytes Percent Auto 23.1 % (20-44); Mean Corpuscular HGB Conc 33 gm/dL (32-36); Mean Corpuscular Hemoglobin 33 pg (26-34); Mean Corpuscular Volume 100 fL (80-100); Monocytes Percent Auto 19.1 % (0.0-11.0); Neutrophils Percent Auto 56.9 % (42.0-72.0); Platelet Count* 154 K/uL (140-440); RDW Coefficient of Variation % 15.2 % (11.5-15.5); Red Blood Count 4.26 m/uL (4.30-5.90); White Blood Count* 4.25 K/uL (4.50-11.00)
[2023-07-28 10:51] LABS: Slide Review Reflex No
[2023-07-28 10:54] LABS: Albumin* 4.2 g/dL (3.3-5.0); Chloride* 106 mmol/L (96-114)
[2023-07-28 10:55] LABS: Potassium* 4.2 mmol/L (3.6-5.1); Sodium* 140 mmol/L (135-149)
[2023-07-28 10:57] LABS: Alkaline Phosphatase* 60 U/L (40-150); Anion Gap 9 mEq/L (7-15); Aspartate Amino Transferase* 35 U/L (12-35); Bilirubin Total* 0.5 mg/dL (0.1-1.5); Blood Urea Nitrogen* 13 mg/dL (7-30); Carbon Dioxide* 25 mmol/L (20-32); Creatinine* 0.8 mg/dL (0.5-1.5); Est. Creatinine Clearance* 58.08; Estimated Glomerular Filt Rate 94 ml/min; Total Protein* 6.5 g/dL (6.0-8.3)
[2023-07-28 10:58] LABS: Alanine Aminotransferase* 43 U/L (4-50); Glucose* 97 mg/dL (60-115)
--- NOTE | 2023-09-15 10:27 | ONC.NURNOTE ---
Revlimid Rx has been faxed to [facility] by [facility]- patient is not able to have his Rev shipped because his re-enrollement in the free drug program through [employer] is still in process selling underwriter will call to expedite process patient notified of this barrier to receiving next scheduled dose of rev- he will call when he hears about his re-enrollment
--- NOTE | 2023-09-15 14:06 | ONC.NURNOTE ---
Consulting Sales Executive phoned [facility] PA[facility]- about renewal application for Revlimid application is still pending with [facility] Access Support who must verify benefits before forwarding the application to [facility] who then reviews application for eligibility for the free drug program apparently this is a new process this year and the Access Support is very back logged in verifying benefits patient has been advised of this situation and is not able to receive his Revlimid until enrollment is confirmed - there is not time line as to when this will happen
--- NOTE | 2023-09-15 16:24 | ONC.NURNOTE ---
Re; Revlimid per [facility]- patient will not qualify for renewal since the [employer] has funding available for myeloma patient will need to enroll in [employer] patient was called Next steps for provider office -send lenolidamid RX to [facility] Specialty with authorization number- completed and emailed today with supporting documentation PA will likely be needed complete PA Call [facility] with patients Shyp enrollment information? [facility]/PCN/Grp# patient will be able to order drug from [facility] with copay coverage by [employer] for 2023 if this all is successful- patient will not be receiving his medication from [facility]
--- NOTE | 2023-09-22 15:52 | ONC.NURNOTE ---
Per Jaimie, pt services manager with [facility], Revlimid is scheduled for delivery 09/26/23. [employer] is covering co-pay.
[2023-09-27 11:14] LABS: Basophils Percent Auto 0.5 % (0.0-3.0); Eosinophils Percent Auto 4.9 % (0.0-7.0); Hematocrit 45.7 % (37.0-53.0); Hemoglobin* 15.1 gm/dL (13.5-17.5); Immature Granulocytes Pct Auto 0.5 %; Lymphocytes Percent Auto 26.3 % (20-44); Mean Corpuscular HGB Conc 33 gm/dL (32-36); Mean Corpuscular Hemoglobin 33 pg (26-34); Mean Corpuscular Volume 99 fL (80-100); Neutrophils Percent Auto 51.8 % (42.0-72.0); Platelet Count* 176 K/uL (140-440); RDW Coefficient of Variation % 14.4 % (11.5-15.5); Red Blood Count 4.63 m/uL (4.30-5.90); White Blood Count* 4.07 K/uL (4.50-11.00)
[2023-09-27 11:17] LABS: Slide Review Reflex No
[2023-09-27 11:30] VITALS: BP 127/80; PULSE 65; RESP 16; TEMP 36.1; O2SAT 93
[2023-09-27 11:33] LABS: Albumin* 4.5 g/dL (3.3-5.0)
[2023-09-27 11:34] LABS: Chloride* 105 mmol/L (96-114); Potassium* 4.5 mmol/L (3.6-5.1); Sodium* 137 mmol/L (135-149)
[2023-09-27 11:36] LABS: Anion Gap 9 mEq/L (7-15); Aspartate Amino Transferase* 37 U/L (12-35); Bilirubin Total* 0.7 mg/dL (0.1-1.5); Carbon Dioxide* 23 mmol/L (20-32); Creatinine* 0.8 mg/dL (0.5-1.5); Est. Creatinine Clearance* 58.08; Estimated Glomerular Filt Rate 94 ml/min
[2023-09-27 11:37] LABS: Alanine Aminotransferase* 37 U/L (4-50); Alkaline Phosphatase* 61 U/L (40-150); Blood Urea Nitrogen* 23 mg/dL (7-30); Calcium* 9.5 mg/dL (8.4-10.6); Glucose* 90 mg/dL (60-115)
[2023-09-27] MEDS: SODIUM CHLORIDE 0.9% IVPB (12:30)
[2023-09-27] MEDS: ZOLEDRONIC ACID IVPB (12:30)
[2023-09-27] MEDS: 0.9 % SODIUM CHLORIDE 250 ml IV (12:53)
[2023-09-27] MEDS: SODIUM CHLORIDE 0.9 % (FLUSH) 10 ML SYRINGE IVF (12:53)
[2023-10-25 10:28] LABS: Basophils Percent Auto 0.6 % (0.0-3.0); Eosinophils Percent Auto 5.8 % (0.0-7.0); Hematocrit 46.3 % (37.0-53.0); Hemoglobin* 15.3 gm/dL (13.5-17.5); Immature Granulocytes Pct Auto 0.3 %; Lymphocytes Percent Auto 24.9 % (20-44); Mean Corpuscular HGB Conc 33 gm/dL (32-36); Mean Corpuscular Hemoglobin 33 pg (26-34); Mean Corpuscular Volume 99 fL (80-100); Monocytes Percent Auto 14.4 % (0.0-11.0); Platelet Count* 162 K/uL (140-440); RDW Coefficient of Variation % 14.3 % (11.5-15.5); White Blood Count* 3.61 K/uL (4.50-11.00)
[2023-10-25 10:30] LABS: Slide Review Reflex No
[2023-10-25 10:50] LABS: Albumin* 4.4 g/dL (3.3-5.0); Chloride* 104 mmol/L (96-114)
[2023-10-25 10:51] LABS: Potassium* 4.1 mmol/L (3.6-5.1); Sodium* 138 mmol/L (135-149)
[2023-10-25 10:53] LABS: Alkaline Phosphatase* 61 U/L (40-150); Anion Gap 10 mEq/L (7-15); Aspartate Amino Transferase* 29 U/L (12-35); Bilirubin Total* 0.6 mg/dL (0.1-1.5); Blood Urea Nitrogen* 21 mg/dL (7-30); Carbon Dioxide* 24 mmol/L (20-32); Creatinine* 0.7 mg/dL (0.5-1.5); Est. Creatinine Clearance* 58.08; Estimated Glomerular Filt Rate 98 ml/min
[2023-10-25 10:54] LABS: Alanine Aminotransferase* 36 U/L (4-50); Calcium* 9.7 mg/dL (8.4-10.6); Glucose* 83 mg/dL (60-115)
--- NOTE | 2023-10-25 11:12 | ONC.NURNOTE ---
Lab results stable to start lenalidomide cycle- patient has started yesterday next lab appt moved to 11/19 so lab is drawn before he starts lenalidomide on 11/21/23
[2023-11-20 09:39] LABS: Basophils Percent Auto 0.6 % (0.0-3.0); Eosinophils Percent Auto 3.4 % (0.0-7.0); Hematocrit 46.5 % (37.0-53.0); Hemoglobin* 15.4 gm/dL (13.5-17.5); Immature Granulocytes Pct Auto 0.3 %; Lymphocytes Percent Auto 31.1 % (20-44); Mean Corpuscular HGB Conc 33 gm/dL (32-36); Mean Corpuscular Hemoglobin 33 pg (26-34); Mean Corpuscular Volume 99 fL (80-100); Monocytes Percent Auto 15.1 % (0.0-11.0); Neutrophils Percent Auto 49.5 % (42.0-72.0); Platelet Count* 157 K/uL (140-440); RDW Coefficient of Variation % 14.4 % (11.5-15.5); Red Blood Count 4.71 m/uL (4.30-5.90); White Blood Count* 3.51 K/uL (4.50-11.00)
[2023-11-20 09:43] LABS: Slide Review Reflex No
[2023-11-20 09:54] LABS: Albumin* 4.3 g/dL (3.3-5.0)
[2023-11-20 09:55] LABS: Chloride* 107 mmol/L (96-114); Potassium* 4.4 mmol/L (3.6-5.1); Sodium* 139 mmol/L (135-149)
[2023-11-20 09:57] LABS: Bilirubin Total* 0.8 mg/dL (0.1-1.5); Creatinine* 0.8 mg/dL (0.5-1.5); Est. Creatinine Clearance* 58.08; Estimated Glomerular Filt Rate 94 ml/min
[2023-11-20 09:58] LABS: Alanine Aminotransferase* 41 U/L (4-50); Anion Gap 7 mEq/L (7-15); Aspartate Amino Transferase* 33 U/L (12-35); Blood Urea Nitrogen* 20 mg/dL (7-30); Calcium* 9.5 mg/dL (8.4-10.6); Carbon Dioxide* 25 mmol/L (20-32); Glucose* 93 mg/dL (60-115); Lactate Dehydrogenase* 247 U/L (120-246); Total Protein* 7.1 g/dL (6.0-8.3)
[2023-11-20 10:14] LABS: Alkaline Phosphatase* 58 U/L (40-150)
--- NOTE | 2023-11-20 12:16 | ONC.NURNOTE ---
lab results reveiewed as stable for patient called to patient to start lenalidomide tomorrow reports no concerns
[2023-11-21 10:32] LABS: Beta-2-Microglob Serum/Plasma 2.2 mg/L (<=3.0)
[2023-11-23 03:27] LABS: Albumin 4.09 g/dL (3.75-5.01); Alpha 1 Globulin 0.34 g/dL (0.19-0.46); Alpha 2 Globulin 0.68 g/dL (0.48-1.05); Immunofixation IFE Done; Immunoglobulin A 46 mg/dL (68-408); Immunoglobulin G 464 mg/dL (768-1632); Immunoglobulin M 36 mg/dL (35-263); Kappa Qnt Free Light Chains 12.96 mg/L (3.30-19.40); Lambda Qnt Free Light Chains 14.45 mg/L (5.71-26.30); Total Protein, Serum 6.6 g/dL (6.3-8.2)
--- NOTE | 2023-11-23 12:46 | ONC.NURNOTE ---
Addendum entered by Fadumo Raymond RN 11/23/23 12:52: reports a basal cell- nodular infiltrative that is not a good candidate for removal Original Note: Bran called with new information about skin cancer on scalp being treated at [facility] in [place] Radiation treatment to scalp 3Xwk for 6 weeks patient has questions about continuing planned treatment with zometa during the radiation sees Dr Hernandez in 1 week
== END 2023-11-28 23:59 | disposition home or self-care (01) ==
LOC: CCIC 09:15
PROVIDERS: PCP Student in an Organized Health Care Education/Training Program; Referring Provider Student in an Organized Health Care Education/Training Program; Visit Provider Internal Medicine Hematology & Oncology
DX: C90.00 Multiple myeloma not having achieved remission (principal); D49.89 Neoplasm of unspecified behavior of other specified sites; D64.9 Anemia, unspecified
CPT/HCPCS: 36415; 80053; 82232; 82784; 83520; 83615; 84155; 84165; 85025; 86334; 96374; 99212; 99214; J3489; J7050

== ENCOUNTER 2024-04-29 09:30 | Outpatient (RCR) | payer MEDICARE, OTHER, SELFPAY ==
--- NOTE | 2023-12-07 15:49 | ONC.NURNOTE ---
[facility] Narendra application online via [email or web address] patient has previously received a narendra is not eligible for another narendra patient aware
--- NOTE | 2023-12-11 13:04 | ONC.NURNOTE ---
Revlimid prescription form faxed to [facility] specialty pharmacy. . Pt updated and can do pt survey anytime.
[2023-12-19 11:38] LABS: Basophils Percent Auto 0.7 % (0.0-3.0); Hematocrit 41.8 % (37.0-53.0); Hemoglobin* 14.2 gm/dL (13.5-17.5); Immature Granulocytes Pct Auto 0.2 %; Lymphocytes Percent Auto 27.4 % (20-44); Mean Corpuscular HGB Conc 34 gm/dL (32-36); Mean Corpuscular Hemoglobin 33 pg (26-34); Mean Corpuscular Volume 98 fL (80-100); Monocytes Percent Auto 13.2 % (0.0-11.0); Neutrophils Percent Auto 58.5 % (42.0-72.0); Platelet Count* 167 K/uL (140-440); RDW Coefficient of Variation % 14.5 % (11.5-15.5); Red Blood Count 4.28 m/uL (4.30-5.90); White Blood Count* 4.24 K/uL (4.50-11.00)
[2023-12-19 11:56] LABS: Albumin* 4.1 g/dL (3.3-5.0); Chloride* 113 mmol/L (96-114); Sodium* 138 mmol/L (135-149)
[2023-12-19 11:57] LABS: Potassium* 3.8 mmol/L (3.6-5.1)
[2023-12-19 11:59] LABS: Alanine Aminotransferase* 37 U/L (4-50); Alkaline Phosphatase* 60 U/L (40-150); Anion Gap 4 mEq/L (7-15); Aspartate Amino Transferase* 31 U/L (12-35); Bilirubin Total* 0.8 mg/dL (0.1-1.5); Blood Urea Nitrogen* 20 mg/dL (7-30); Calcium* 9.2 mg/dL (8.4-10.6); Carbon Dioxide* 21 mmol/L (20-32); Creatinine* 0.7 mg/dL (0.5-1.5); Estimated Glomerular Filt Rate 98 ml/min; Glucose* 86 mg/dL (60-115); Total Protein* 6.8 g/dL (6.0-8.3)
[2023-12-19 12:00] LABS: Slide Review Reflex No
[2023-12-26 13:05] VITALS: BP 116/73; PULSE 62; RESP 16; TEMP 36.6; O2SAT 95
[2023-12-26] MEDS: ZOLEDRONIC ACID 4 MG in 0.9 % SODIUM CHLORIDE 100 ml 100 ML 420 MG IVPB (13:26)
[2024-01-17 10:28] LABS: Basophils Percent Auto 1.1 % (0.0-3.0); Hematocrit 44.6 % (37.0-53.0); Hemoglobin* 14.7 gm/dL (13.5-17.5); Lymphocytes Percent Auto 26.1 % (20-44); Mean Corpuscular HGB Conc 33 gm/dL (32-36); Mean Corpuscular Hemoglobin 33 pg (26-34); Mean Corpuscular Volume 99 fL (80-100); Monocytes Percent Auto 13.3 % (0.0-11.0); Neutrophils Percent Auto 59.5 % (42.0-72.0); Platelet Count* 162 K/uL (140-440); RDW Coefficient of Variation % 14.5 % (11.5-15.5); Red Blood Count 4.49 m/uL (4.30-5.90); White Blood Count* 3.76 K/uL (4.50-11.00)
[2024-01-17 10:31] LABS: Slide Review Reflex No
[2024-01-17 10:34] LABS: Albumin* 4.2 g/dL (3.3-5.0); Chloride* 108 mmol/L (96-114); Sodium* 139 mmol/L (135-149)
[2024-01-17 10:35] LABS: Potassium* 4.5 mmol/L (3.6-5.1)
[2024-01-17 10:37] LABS: Alanine Aminotransferase* 36 U/L (4-50); Alkaline Phosphatase* 57 U/L (40-150); Anion Gap 6 mEq/L (7-15); Aspartate Amino Transferase* 34 U/L (12-35); Bilirubin Total* 0.9 mg/dL (0.1-1.5); Blood Urea Nitrogen* 17 mg/dL (7-30); Carbon Dioxide* 25 mmol/L (20-32); Creatinine* 0.7 mg/dL (0.5-1.5); Estimated Glomerular Filt Rate 98 ml/min; Glucose* 81 mg/dL (60-115)
[2024-01-17 10:38] LABS: Calcium* 9.2 mg/dL (8.4-10.6)
--- NOTE | 2024-01-17 13:19 | ONC.NURNOTE ---
labs reviewed by Dr Sy- with in parameters to lenalidomide message left on patients voicemail next appts reviewed
[2024-02-13 10:18] LABS: Basophils Percent Auto 0.5 % (0.0-3.0); Eosinophils Percent Auto 1.4 % (0.0-7.0); Hematocrit 43.2 % (37.0-53.0); Hemoglobin* 14.3 gm/dL (13.5-17.5); Immature Granulocytes Pct Auto 0.3 %; Lymphocytes Percent Auto 30.7 % (20-44); Mean Corpuscular HGB Conc 33 gm/dL (32-36); Mean Corpuscular Hemoglobin 33 pg (26-34); Mean Corpuscular Volume 101 fL (80-100); Monocytes Percent Auto 10.1 % (0.0-11.0); Platelet Count* 153 K/uL (140-440); RDW Coefficient of Variation % 14.3 % (11.5-15.5); White Blood Count* 3.68 K/uL (4.50-11.00)
[2024-02-13 10:29] LABS: Slide Review Reflex No
[2024-02-13 10:54] LABS: Albumin* 4.4 g/dL (3.3-5.0); Chloride* 109 mmol/L (96-114); Potassium* 4.1 mmol/L (3.6-5.1); Sodium* 139 mmol/L (135-149)
[2024-02-13 10:56] LABS: Anion Gap 4 mEq/L (7-15); Bilirubin Total* 0.9 mg/dL (0.1-1.5); Carbon Dioxide* 26 mmol/L (20-32); Creatinine* 0.8 mg/dL (0.5-1.5); Estimated Glomerular Filt Rate 94 ml/min
[2024-02-13 10:57] LABS: Alanine Aminotransferase* 35 U/L (4-50); Alkaline Phosphatase* 52 U/L (40-150); Aspartate Amino Transferase* 30 U/L (12-35); Blood Urea Nitrogen* 22 mg/dL (7-30); Calcium* 8.9 mg/dL (8.4-10.6); Glucose* 104 mg/dL (60-115); Total Protein* 6.8 g/dL (6.0-8.3)
--- NOTE | 2024-02-13 11:45 | ONC.NURNOTE ---
Labs with in parameters- called to patient- ok to start lenalidomide results will be routed to Dr Sy tomorrow next appts scheduled
--- NOTE | 2024-03-01 12:27 | ONC.NURNOTE ---
Patient called office this morning stating that he is out of refills on revlamid and pharmacy does not have refill on file. Nursing looked through navigator information and found old refill prescription. Called navigator and was told that she would take care of the refill on Monday. Patient called with this information, he asked that she call him once this has been completed.
[2024-03-12 10:21] LABS: Basophils Percent Auto 0.3 % (0.0-3.0); Hematocrit 43.5 % (37.0-53.0); Hemoglobin* 14.6 gm/dL (13.5-17.5); Lymphocytes Percent Auto 30.2 % (20-44); Mean Corpuscular HGB Conc 34 gm/dL (32-36); Mean Corpuscular Hemoglobin 34 pg (26-34); Mean Corpuscular Volume 101 fL (80-100); Neutrophils Percent Auto 57.5 % (42.0-72.0); Platelet Count* 143 K/uL (140-440); RDW Coefficient of Variation % 13.9 % (11.5-15.5); Red Blood Count 4.32 m/uL (4.30-5.90); White Blood Count* 3.84 K/uL (4.50-11.00)
[2024-03-12 10:22] LABS: Slide Review Reflex No
[2024-03-12 10:34] LABS: Albumin* 4.2 g/dL (3.3-5.0)
[2024-03-12 10:35] LABS: Chloride* 109 mmol/L (96-114); Potassium* 4.2 mmol/L (3.6-5.1); Sodium* 139 mmol/L (135-149)
[2024-03-12 10:37] LABS: Anion Gap 6 mEq/L (7-15); Aspartate Amino Transferase* 31 U/L (12-35); Bilirubin Total* 0.6 mg/dL (0.1-1.5); Carbon Dioxide* 24 mmol/L (20-32); Creatinine* 0.7 mg/dL (0.5-1.5); Estimated Glomerular Filt Rate 97 ml/min
[2024-03-12 10:38] LABS: Alanine Aminotransferase* 35 U/L (4-50); Alkaline Phosphatase* 55 U/L (40-150); Blood Urea Nitrogen* 19 mg/dL (7-30); Calcium* 9.2 mg/dL (8.4-10.6); Glucose* 88 mg/dL (60-115); Total Protein* 6.7 g/dL (6.0-8.3)
--- NOTE | 2024-03-13 10:00 | ONC.NURNOTE ---
Labs noted and message left for patient- with in parameters to start lenalidomide Myeloma panel pending RTC 03/25
[2024-03-15 04:41] LABS: Albumin 3.85 g/dL (3.75-5.01); Alpha 1 Globulin 0.28 g/dL (0.19-0.46); Alpha 2 Globulin 0.63 g/dL (0.48-1.05); Immunofixation IFE Done; Immunoglobulin A 65 mg/dL (68-408); Immunoglobulin G 740 mg/dL (768-1632); Immunoglobulin M 39 mg/dL (35-263); Kappa Qnt Free Light Chains 14.88 mg/L (3.30-19.40); Kappa/Lambda Light Chain Ratio 0.93 (0.26-1.65); Lambda Qnt Free Light Chains 16.08 mg/L (5.71-26.30); Total Protein, Serum 6.2 g/dL (6.3-8.2)
[2024-03-27] MEDS: ZOLEDRONIC ACID 4 MG in 0.9 % SODIUM CHLORIDE 100 ml 100 ML 420 MG IVPB (11:46)
[2024-04-29 09:37] LABS: Basophils Percent Auto 0.2 % (0.0-3.0); Eosinophils Percent Auto 2.7 % (0.0-7.0); Hematocrit 43.3 % (37.0-53.0); Hemoglobin* 14.4 gm/dL (13.5-17.5); Immature Granulocytes Pct Auto 0.2 %; Lymphocytes Percent Auto 27.3 % (20-44); Mean Corpuscular HGB Conc 33 gm/dL (32-36); Mean Corpuscular Hemoglobin 33 pg (26-34); Mean Corpuscular Volume 100 fL (80-100); Monocytes Percent Auto 10.4 % (0.0-11.0); Neutrophils Percent Auto 59.2 % (42.0-72.0); Platelet Count* 148 K/uL (140-440); RDW Coefficient of Variation % 13.9 % (11.5-15.5); Red Blood Count 4.33 m/uL (4.30-5.90); White Blood Count* 4.14 K/uL (4.50-11.00)
[2024-04-29 09:39] LABS: Slide Review Reflex No
[2024-04-29 09:56] LABS: Albumin* 4.4 g/dL (3.3-5.0); Chloride* 103 mmol/L (96-114); Potassium* 4.5 mmol/L (3.6-5.1); Sodium* 135 mmol/L (135-149)
[2024-04-29 09:58] LABS: Creatinine* 0.8 mg/dL (0.5-1.5); Estimated Glomerular Filt Rate 93 ml/min
[2024-04-29 09:59] LABS: Alanine Aminotransferase* 43 U/L (4-50); Alkaline Phosphatase* 60 U/L (40-150); Anion Gap 7 mEq/L (7-15); Aspartate Amino Transferase* 38 U/L (12-35); Blood Urea Nitrogen* 23 mg/dL (7-30); Carbon Dioxide* 25 mmol/L (20-32); Glucose* 96 mg/dL (60-115); Total Protein* 7.1 g/dL (6.0-8.3)
[2024-04-29 10:00] LABS: Calcium* 9.6 mg/dL (8.4-10.6)
--- NOTE | 2024-04-29 10:57 | ONC.NURNOTE ---
Labs reviewed and called to Bran- as stable within his norm for lenalidomide Appts and schedule reviewed: 1. todays labs are 1 week early- drawn on day 21 of current cycle- last day of lenalidomide is today 2. Senior Policy Associate asked patient why he did not come in for labs in early Apr prior to starting this current cycle of lenalidomide- patient states he does not know why 3. next appts made for lab 06/03/24- also due for myeloma panel with Dr Sy follow up the following week
--- NOTE | 2024-05-23 10:08 | PC.NURSE ---
Did revlemid provider survey and faxed prescription refill to [facility].
== END 2024-05-28 23:59 | disposition home or self-care (01) ==
LOC: CCIC 09:30
PROVIDERS: Clinical Nurse Specialist; Internal Medicine Hematology & Oncology; PCP Student in an Organized Health Care Education/Training Program; Referring Provider Student in an Organized Health Care Education/Training Program; Visit Provider Internal Medicine Hematology & Oncology
DX: C90.00 Multiple myeloma not having achieved remission (principal)
CPT/HCPCS: 36415; 80053; 82784; 83520; 84155; 84165; 85025; 86334; 96374; 99213; 99214; G0463; J3489

== ENCOUNTER 2024-08-09 10:29 | Outpatient (REF) | payer MEDICARE, OTHER, SELFPAY ==
[2024-08-09 10:58] LABS: Chloride* 104 mmol/L (96-114)
[2024-08-09 10:59] LABS: Potassium* 4.5 mmol/L (3.6-5.1); Sodium* 135 mmol/L (135-149)
[2024-08-09 11:01] LABS: Cholesterol* 184 mg/dL (90-199); Creatinine* 0.7 mg/dL (0.5-1.5); Estimated Glomerular Filt Rate 97 ml/min
[2024-08-09 11:02] LABS: Anion Gap 5 mEq/L (7-15); Blood Urea Nitrogen* 20 mg/dL (7-30); Calcium* 9.5 mg/dL (8.4-10.6); Carbon Dioxide* 26 mmol/L (20-32); Glucose* 94 mg/dL (60-115); HDL Cholesterol* 56 mg/dL (>=40); LDL Cholesterol Calculated 68 mg/dL (<100); Triglycerides* 301 mg/dL (40-149)
== END 2024-08-09 10:30 | disposition home or self-care (01) ==
LOC: NPINS 10:29
PROVIDERS: PCP Student in an Organized Health Care Education/Training Program; Visit Provider Nurse Practitioner Family
DX: E78.5 Hyperlipidemia, unspecified (principal); I10 Essential (primary) hypertension; E78.41 Elevated Lipoprotein(a); Z78.9 Other specified health status; Z82.49 Family history of ischemic heart disease and other diseases of the circulatory system
CPT/HCPCS: 80048; 80061

== ENCOUNTER 2024-10-28 10:11 | Outpatient (CLI) | payer MEDICARE, OTHER, SELFPAY | END 2024-10-28 10:12 | disposition home or self-care (01) | LOC: NFLDREF 10-30 03:01 | PROVIDERS: PCP Student in an Organized Health Care Education/Training Program; Referring Provider Student in an Organized Health Care Education/Training Program; Visit Provider Internal Medicine Hematology & Oncology | DX: D49.89 Neoplasm of unspecified behavior of other specified sites (principal) | CPT/HCPCS: 80053; 85025 ==

== ENCOUNTER 2024-11-25 10:00 | Outpatient (RCR) | payer MEDICARE, OTHER, SELFPAY ==
[2024-06-03 09:48] LABS: Basophils Percent Auto 0.7 % (0.0-3.0); Eosinophils Percent Auto 2.1 % (0.0-7.0); Hematocrit 42.9 % (37.0-53.0); Hemoglobin* 14.4 gm/dL (13.5-17.5); Immature Granulocytes Pct Auto 0.2 %; Mean Corpuscular HGB Conc 34 gm/dL (32-36); Mean Corpuscular Hemoglobin 34 pg (26-34); Mean Corpuscular Volume 100 fL (80-100); Monocytes Percent Auto 11.9 % (0.0-11.0); Neutrophils Percent Auto 59.1 % (42.0-72.0); Platelet Count* 139 K/uL (140-440); RDW Coefficient of Variation % 13.9 % (11.5-15.5); Slide Review Reflex No
[2024-06-03 09:59] LABS: Albumin* 4.3 g/dL (3.3-5.0); Chloride* 106 mmol/L (96-114); Potassium* 4.1 mmol/L (3.6-5.1); Sodium* 136 mmol/L (135-149)
[2024-06-03 10:02] LABS: Alanine Aminotransferase* 34 U/L (4-50); Alkaline Phosphatase* 53 U/L (40-150); Anion Gap 9 mEq/L (7-15); Aspartate Amino Transferase* 36 U/L (12-35); Bilirubin Total* 0.9 mg/dL (0.1-1.5); Blood Urea Nitrogen* 20 mg/dL (7-30); Carbon Dioxide* 21 mmol/L (20-32); Creatinine* 0.7 mg/dL (0.5-1.5); Estimated Glomerular Filt Rate 97 ml/min; Glucose* 97 mg/dL (60-115); Total Protein* 6.8 g/dL (6.0-8.3)
[2024-06-03 10:03] LABS: Calcium* 9.5 mg/dL (8.4-10.6)
--- NOTE | 2024-06-04 11:10 | ONC.NURNOTE ---
Lab results reviewed and called to Bran as stable- ok to start lenalidomide Clinic follow up next week
[2024-06-05 22:58] LABS: Albumin 3.93 g/dL (3.75-5.01); Alpha 1 Globulin 0.35 g/dL (0.19-0.46); Alpha 2 Globulin 0.63 g/dL (0.48-1.05); Immunofixation IFE Done; Immunoglobulin A 56 mg/dL (68-408); Immunoglobulin G 729 mg/dL (768-1632); Immunoglobulin M 50 mg/dL (35-263); Kappa Qnt Free Light Chains 13.53 mg/L (3.30-19.40); Kappa/Lambda Light Chain Ratio 0.83 (0.26-1.65); Total Protein, Serum 6.4 g/dL (6.3-8.2)
--- NOTE | 2024-06-21 11:25 | URNOTE ---
Prior auth is not required for Zometa ([id number]). Services are based on medical necessity and follow medicare guidelines
[2024-06-27 09:05] VITALS: BP 133/85; PULSE 62; RESP 16; TEMP 36; O2SAT 97
[2024-06-27 09:19] LABS: Basophils Percent Auto 0.5 % (0.0-3.0); Eosinophils Percent Auto 0.5 % (0.0-7.0); Hematocrit 42.8 % (37.0-53.0); Hemoglobin* 14.3 gm/dL (13.5-17.5); Immature Granulocytes Pct Auto 0.3 %; Lymphocytes Percent Auto 27.4 % (20-44); Mean Corpuscular HGB Conc 33 gm/dL (32-36); Mean Corpuscular Hemoglobin 33 pg (26-34); Mean Corpuscular Volume 100 fL (80-100); Monocytes Percent Auto 10.9 % (0.0-11.0); Neutrophils Percent Auto 60.4 % (42.0-72.0); Platelet Count* 142 K/uL (140-440); RDW Coefficient of Variation % 13.8 % (11.5-15.5); Red Blood Count 4.28 m/uL (4.30-5.90); White Blood Count* 3.68 K/uL (4.50-11.00)
[2024-06-27 09:22] LABS: Slide Review Reflex No
[2024-06-27 09:38] LABS: Albumin* 4.3 g/dL (3.3-5.0)
[2024-06-27 09:39] LABS: Chloride* 104 mmol/L (96-114); Potassium* 3.7 mmol/L (3.6-5.1); Sodium* 134 mmol/L (135-149)
[2024-06-27 09:41] LABS: Anion Gap 11 mEq/L (7-15); Aspartate Amino Transferase* 31 U/L (12-35); Bilirubin Total* 0.8 mg/dL (0.1-1.5); Carbon Dioxide* 19 mmol/L (20-32); Creatinine* 0.7 mg/dL (0.5-1.5); Est. Creatinine Clearance* 55.09; Estimated Glomerular Filt Rate 97 ml/min
[2024-06-27 09:42] LABS: Alanine Aminotransferase* 33 U/L (4-50); Alkaline Phosphatase* 53 U/L (40-150); Blood Urea Nitrogen* 19 mg/dL (7-30); Calcium* 9.2 mg/dL (8.4-10.6); Glucose* 115 mg/dL (60-115); Total Protein* 6.9 g/dL (6.0-8.3)
[2024-06-27] MEDS: ZOLEDRONIC ACID 4 MG in 0.9 % SODIUM CHLORIDE 100 ml 100 ML 400 MG IVPB (10:16)
--- NOTE | 2024-06-28 09:45 | ONC.NURNOTE ---
Lab results called to Bran as stable patient reports no new concerns or changes with lenalidomide dose start date is 07/02 next lab 07/29
[2024-07-29 10:19] LABS: Basophils Absolute Auto 0.02 K/uL (0.00-0.30); Basophils Percent Auto 0.4 % (0.0-3.0); Eosinophils Absolute Auto 0.06 K/uL (0.00-0.50); Eosinophils Percent Auto 1.3 % (0.0-7.0); Hematocrit 46.8 % (37.0-53.0); Hemoglobin* 15.4 gm/dL (13.5-17.5); Immature Granulocytes Abs Auto 0.01 K/uL (0.00-0.30); Immature Granulocytes Pct Auto 0.2 %; Lymphocytes Absolute Auto 1.41 K/uL (0.90-2.90); Lymphocytes Percent Auto 30.3 % (20-44); Mean Corpuscular HGB Conc 33 gm/dL (32-36); Mean Corpuscular Hemoglobin 33 pg (26-34); Mean Corpuscular Volume 100 fL (80-100); Monocytes Percent Auto 11.2 % (0.0-11.0); Neutrophils Absolute Auto 2.63 K/uL (1.7-7.0); Neutrophils Percent Auto 56.6 % (42.0-72.0); Platelet Count* 154 K/uL (140-440); RDW Coefficient of Variation % 13.9 % (11.5-15.5); Red Blood Count 4.66 m/uL (4.30-5.90); White Blood Count* 4.65 K/uL (4.50-11.00)
[2024-07-29 10:20] LABS: Slide Review Reflex No
[2024-07-29 10:29] LABS: Albumin* 4.4 g/dL (3.3-5.0); Chloride* 104 mmol/L (96-114)
[2024-07-29 10:30] LABS: Potassium* 4.3 mmol/L (3.6-5.1); Sodium* 138 mmol/L (135-149)
[2024-07-29 10:32] LABS: Anion Gap 11 mEq/L (7-15); Aspartate Amino Transferase* 32 U/L (12-35); Bilirubin Total* 0.6 mg/dL (0.1-1.5); Blood Urea Nitrogen* 19 mg/dL (7-30); Carbon Dioxide* 23 mmol/L (20-32); Creatinine* 0.8 mg/dL (0.5-1.5); Est. Creatinine Clearance* 55.09; Estimated Glomerular Filt Rate 93 ml/min; Total Protein* 7.1 g/dL (6.0-8.3)
[2024-07-29 10:33] LABS: Alanine Aminotransferase* 33 U/L (4-50); Alkaline Phosphatase* 58 U/L (40-150); Calcium* 9.5 mg/dL (8.4-10.6); Glucose* 90 mg/dL (60-115)
--- NOTE | 2024-07-29 13:23 | ONC.NURNOTE ---
lab results called to as stable and ok to start lenolidamide tomorrow future appts mailed to patient
[2024-09-30 09:39] VITALS: BP 106/56; PULSE 68; RESP 16; TEMP 36.4; O2SAT 94
[2024-09-30 09:59] LABS: Basophils Percent Auto 0.5 % (0.0-3.0); Hematocrit 43.2 % (37.0-53.0); Hemoglobin* 14.5 gm/dL (13.5-17.5); Immature Granulocytes Pct Auto 0.3 %; Lymphocytes Percent Auto 23.7 % (20-44); Mean Corpuscular HGB Conc 34 gm/dL (32-36); Mean Corpuscular Hemoglobin 34 pg (26-34); Mean Corpuscular Volume 100 fL (80-100); Monocytes Percent Auto 11.3 % (0.0-11.0); Neutrophils Percent Auto 64.2 % (42.0-72.0); Platelet Count* 160 K/uL (140-440); RDW Coefficient of Variation % 14.3 % (11.5-15.5); Red Blood Count 4.32 m/uL (4.30-5.90); White Blood Count* 3.97 K/uL (4.50-11.00)
[2024-09-30 10:00] LABS: Slide Review Reflex No
[2024-09-30 10:09] LABS: Albumin* 4.1 g/dL (3.3-5.0); Chloride* 103 mmol/L (96-114)
[2024-09-30 10:10] LABS: Potassium* 3.9 mmol/L (3.6-5.1); Sodium* 137 mmol/L (135-149)
[2024-09-30 10:12] LABS: Alanine Aminotransferase* 35 U/L (4-50); Alkaline Phosphatase* 51 U/L (40-150); Anion Gap 8 mEq/L (7-15); Aspartate Amino Transferase* 32 U/L (12-35); Bilirubin Total* 0.8 mg/dL (0.1-1.5); Blood Urea Nitrogen* 16 mg/dL (7-30); Carbon Dioxide* 26 mmol/L (20-32); Creatinine* 0.8 mg/dL (0.5-1.5); Est. Creatinine Clearance* 55.09; Estimated Glomerular Filt Rate 93 ml/min; Glucose* 102 mg/dL (60-115); Total Protein* 6.4 g/dL (6.0-8.3)
[2024-09-30] MEDS: ZOLEDRONIC ACID 4 MG in 0.9 % SODIUM CHLORIDE 100 ml 100 ML 200 MG IVPB (11:08)
[2024-09-30] MEDS: SODIUM CHLORIDE 0.9 % (FLUSH) 10 ML SYRINGE IVF (12:56)
--- NOTE | 2024-10-17 12:03 | ONC.NURNOTE ---
Lenolidamide Refill Called in to [facility]: [phone] ID #: [id number] Quantity: 11 caps (1 5mg cap every other day for 21 days on, 7 days off every 28 days) Authorization #: [id number] Faxed to [facility] Special[facility] 10/17/2024.
[2024-11-25 10:43] LABS: Basophils Absolute Auto 0.01 K/uL (0.00-0.30); Basophils Percent Auto 0.2 % (0.0-3.0); Eosinophils Absolute Auto 0.03 K/uL (0.00-0.50); Eosinophils Percent Auto 0.7 % (0.0-7.0); Hematocrit 46.6 % (37.0-53.0); Hemoglobin* 15.4 gm/dL (13.5-17.5); Immature Granulocytes Abs Auto 0.01 K/uL (0.00-0.30); Immature Granulocytes Pct Auto 0.2 %; Lymphocytes Absolute Auto 1.25 K/uL (0.90-2.90); Lymphocytes Percent Auto 27.4 % (20-44); Mean Corpuscular HGB Conc 33 gm/dL (32-36); Mean Corpuscular Hemoglobin 34 pg (26-34); Mean Corpuscular Volume 102 fL (80-100); Neutrophils Absolute Auto 2.86 K/uL (1.7-7.0); Neutrophils Percent Auto 62.5 % (42.0-72.0); Platelet Count* 148 K/uL (140-440); RDW Coefficient of Variation % 13.6 % (11.5-15.5); Red Blood Count 4.58 m/uL (4.30-5.90); White Blood Count* 4.57 K/uL (4.50-11.00)
[2024-11-25 10:44] LABS: Chloride* 106 mmol/L (96-114)
[2024-11-25 10:45] LABS: Albumin* 4.2 g/dL (3.3-5.0); Potassium* 4.1 mmol/L (3.6-5.1); Sodium* 139 mmol/L (135-149)
[2024-11-25 10:46] LABS: Slide Review Reflex No
[2024-11-25 10:47] LABS: Alanine Aminotransferase* 40 U/L (4-50); Anion Gap 9 mEq/L (7-15); Aspartate Amino Transferase* 43 U/L (12-35); Blood Urea Nitrogen* 20 mg/dL (7-30); Carbon Dioxide* 24 mmol/L (20-32); Creatinine* 0.8 mg/dL (0.5-1.5); Est. Creatinine Clearance* 55.09; Estimated Glomerular Filt Rate 93 ml/min
[2024-11-25 10:48] LABS: Alkaline Phosphatase* 56 U/L (40-150); Bilirubin Total* 0.8 mg/dL (0.1-1.5); Calcium* 9.1 mg/dL (8.4-10.6); Glucose* 88 mg/dL (60-115); Total Protein* 6.6 g/dL (6.0-8.3)
[2024-11-27 12:55] LABS: Albumin 3.98 g/dL (3.75-5.01); Alpha 1 Globulin 0.27 g/dL (0.19-0.46); Alpha 2 Globulin 0.58 g/dL (0.48-1.05); Immunofixation IFE Done; Immunoglobulin A 52 mg/dL (68-408); Immunoglobulin G 569 mg/dL (768-1632); Immunoglobulin M 46 mg/dL (35-263); Kappa Qnt Free Light Chains 8.86 mg/L (3.30-19.40); Kappa/Lambda Light Chain Ratio 0.52 (0.26-1.65); Lambda Qnt Free Light Chains 16.95 mg/L (5.71-26.30); Total Protein, Serum 6.1 g/dL (6.3-8.2)
== END 2024-11-30 23:59 | disposition home or self-care (01) ==
LOC: CCIC 10:00
PROVIDERS: Clinical Nurse Specialist; PCP Student in an Organized Health Care Education/Training Program; Referring Provider Student in an Organized Health Care Education/Training Program; Visit Provider Internal Medicine Hematology & Oncology
DX: C90.00 Multiple myeloma not having achieved remission (principal); D49.89 Neoplasm of unspecified behavior of other specified sites
CPT/HCPCS: 36415; 80053; 82232; 82784; 83520; 84155; 84165; 85025; 86334; 96365; 96374; 99214; G0463; J3489

== ENCOUNTER 2025-03-30 03:38 | Outpatient (CLI) | payer MEDICARE, OTHER, SELFPAY | END 2025-03-30 03:39 | disposition home or self-care (01) | PROVIDERS: PCP Student in an Organized Health Care Education/Training Program; Visit Provider Family Medicine | DX: R53.1 Weakness (principal); R06.09 Other forms of dyspnea; R50.9 Fever, unspecified | CPT/HCPCS: A0425; A0427 ==

== ENCOUNTER 2025-03-30 04:27 | Emergency (ER) | payer MEDICARE, OTHER, SELFPAY ==
[2025-03-30] VITALS (13 sets, daily range): BP systolic 95–126; BP diastolic 51–70; PULSE 59–77; RESP 14–24; TEMP 37.2; O2SAT 87–94; BMI 36.9
--- OUTSIDE RECORDS SUMMARY | 2025-03-30 04:29 | XMS_ITS ---
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 Past Treatment and Therapy Plans Apheresis Plan Name Start Date Discontinue Date Treatment Medications Discontinue Reason Plan Provider AUTOLOGOUS CELL COLLECTION 08/16/2022 08/17/2022 No medications scheduled. Therapy Complete Ronnie Huynh M.D. Conditional Blood Orders Platelets Plan Name Start Date Discontinue Date Treatment Medications Discontinue Reason Plan Provider CONDITIONAL BLOOD ADMINISTRATION - PLATELETS - FOR PATIENTS WEIGHING GREATER THAN 35 KG - (UNITS) HEM ONC / BMT ONLY 2 02/10/2023 No medications scheduled. Therapy Complete Minal Echeverria APRN, C.N.P., D.N.P. Conditional Blood Orders RBC Plan Name Start Date Discontinue Date Treatment Medications Discontinue Reason Plan Provider CONDITIONAL BLOOD ADMINISTRATION - RED BLOOD CELLS (RBC) FOR PATIENTS WEIGHING GREATER THAN 35 KG (UNITS) HEM ONC / BMT 2 02/10/2023 No medications scheduled. Therapy Complete Minal Echeverria APRN, C.N.P., D.N.P. Flushes/Hydration Plan Name Start Date Discontinue Date Treatment Medications Discontinue Reason Plan Provider VASCULAR ACCESS PATENCY - HEMODIALYSIS CATHETER WITH A TEGO CAP 08/15/2022 08/06/2023 No medications scheduled. Amendment Change - Hem/Onc Therapy Plan 1 Plan Name Start Date Discontinue Date Treatment Medications Discontinue Reason Plan Provider PERIPHERAL BLOOD STEM CELL MOBILIZATION 08/12/2022 08/17/2022 No medications scheduled. Therapy Complete Ronnie Huynh M.D. Hematology / Oncology Treatment 1 Plan Name Start Date Discontinue Date Treatment Medications Discontinue Reason Plan Provider Cycles Melphalan Single Day ( Day -2 ) Myeloablative Conditioning 08/20/2002/22/2023 melphalan (Alkeran) IVPB in 1000 mL (QS base) (Alkeran) Therapy Complete Minal Echeverria APRN, C.N.P., D.N.P. 1 of 1 cycle started Infusion Therapy 1 Plan Name Start Date Discontinue Date Treatment Medications Discontinue Reason Plan Provider AUTOLOGOUS BLOOD AND MARROW TRANSPLANT 08/20/2022 02/22/2023 No medications scheduled. Therapy Complete Minal Echeverria APRN, C.N.P., D.N.P. PLERIXAFOR (MOZOBIL) 08/15/2022 08/17/2022 No medications scheduled. Therapy Complete Ronnie Huynh M.D. Cellular Therapy * Episode Name Episode Status Transplant/Infusion Date Transplant/Infusion Center Donor Information Acute GVHD Chronic GVHD Contact Auto PBSC Txp Resolved Day 2y 7m (08/22/22) [facility] N/A N/A N/A Ronnie Huynh M.D.Phon e: [phone]: Robin [email or web address] * Cell Therapy Appointments (02/28/2025 - 04/30/2025) When Visit Type With Description No appointments Lifetime Dose Tracking * Chemical Lifetime Dose Automatic Entry Manual Entr y Radiation 4.178 mGy 4.178 mGy 0 mGy Fluoro Time 0.318 minutes 0.318 minutes 0 minutes
--- OUTSIDE RECORDS SUMMARY | 2025-03-30 04:29 | XMS_ITS | Encounter Summary ---
Author Organization [facility] Address [address] [place] [id number] Care Team Providers Care Perforator Name Role Phone Elsewhere, Pcp Primary Care Provider Unavailabl e Encounter Details Date Type Department Care Team (Late st Contact Info) Description 03/24/2025 Orders Only Division of Hematology in [place], [place] [address] [place] [phone] Ronnie Huynh M.D. [address] [place] [address] Social History Tobacco Use Types Packs/Day Years Used Date Smoking Tobacco: Former Cigarettes Q uit: 1990 Smokeless Tobacco: Never Alcohol Use Standard Drinks/Week Comments Never 0 (1 standard drink = 0.6 oz pur e alcohol) [facility] Utilities Answer Date Recorded In the past 12 months has [facility] [employer], gas, oil, or water [place] threatened to shut off services in your home? No 08/26/2024 Humiliation, Afraid, Rape, and Kick questionnair e Answer Date Recorded Within the last year, have y ou been afraid of your partner or ex-partner? No 03/26/2022 Within the last year, have y ou been humiliated or emotionally abused in other ways by your partner or ex-partner? No Within the last year, have y ou been kicked, hit, slapped, or otherwise physically hurt by your partner or ex-partner? No 03/26/2022 Within the last year, have y ou been raped or forced to have any kind of sexual activity by your partner or ex-partner? No 03/26/2022 Hunger Vital Sign Answer Date Recorded Within the past 12 months, y ou worried that your food would run out before you got the money to buy more. Never true 08/26/20 24 Within the past 12 months, t he food you bought just didn't last and you didn't have money to get more. Never true 08/26/2024 PRAPARE - Transportation Answer Date Re corded In the past 12 months, has l ack of transportation kept you from medical appointments or from getting medications? No 08/05 In the past 12 months, has l ack of transportation kept you from meetings, work, or from getting things needed for daily living? No 08/26/2024 Housing Stability Answer Date Recorded What is your living situation today? I have a [place] place to live 08/26/2024 Education Answer Date Recorded What is the highest level of school you have completed or the highest degree you have received? 12th grade 03/26/2022 Sex and Gender Information Value Date Recorded Sex Assigned at Male 03/26/2022 3:03 PM CDT Legal Sex Male 10:33 AM CDT Gender Identity Male 03/26/2022 3:03 PM CDT Sexual Orientation Straight 03/26/2022 3: 03 PM CDT documented as of this encounter Plan of Treatment Not on file documented as of this encounter Visit Diagnoses Not on filedocumented in this encounter Additional Health Concerns Infection Onset Date Last Indicated Resolved Time Protective Environment 02/15/2023 02/15/2023 Assessment Noted Time A fall risk assessment has been complete d for the patient 08/17/2022 7:34 AM SINK CUTTER documented as of this encounter Care Teams Perforator Relationship Specialty Start Date End Date Elsewhere, Pcp PCP - General Internal Medicine 03/28/22 documented as of this encounter
--- OUTSIDE RECORDS SUMMARY | 2025-03-30 04:30 | XMS_ITS | Clinical Summary ---
Author Organization [facility] Address [address] [place] [address] Care Team Providers Care Merchandising Specialist Name Role Phone None, Primary Care Provider Unavailabl e Allergies Active Allergy Reactions Criticality Noted Date Comments Atorvastatin Myalgia 02/05/2007 intol muscle aches Gemfibrozil Myalgia 02/05/2007 intol muscle aches Clopidogrel Hives 04/09/2011 Rosuvastatin Other 04/20/2017 Increased cpk to 622 Simvastatin Other,Myalgia 05/21/2011 Muscle weakness Ezetimibe Myalgia 06/06/2018 Medications albuterol HFA (PROVENTIL;VENT MARY HFA) 90 mcg/actuation Inhl inhaler Inhale 2 puffs every 4 (four) hours as needed. 03/29/2024 Active aspirin 81 mg oral enteric coated tablet Take 1 tablet (81 mg) by mouth. Active cholecalciferol , vitamin D3, 25 mcg, 1000 unit, 25 mcg (1,000 unit) oral tablet Take 4 tablets (100 mcg) by mouth. Active colestipoL (COLESTID) 1 gram oral tablet TAKE ONE TABLET BY MOUTH ONE TIME DAILY* 04/22/2024 Active cyclobenzaprine (FLEXERIL) 10 mg oral tablet Take 1 tablet (10 mg) by mouth Daily. 01/06/2025 Active escitalopram oxalate (LEXAPRO) 20 mg oral tablet Take 1 tablet (20 mg) by mouth every morning. 01/11/2025 Active hydroCHLOROthia zide (HYDRODIURIL) 25 mg oral tablet Take 1 tablet (25 mg) by mouth Daily. 12/19/2024 Active lenalidomide (REVLIMID) 5 mg oral capsule 12/17/2024 Active losartan (COZAAR) 25 mg oral tablet Take 1 tablet (25 mg) by mouth Daily. 11/15/2024 Active nitroGLYCERIN (NITROSTAT) 0.4 mg sublingual tablet Take 1 tablet (0.4 mg) under the tongue every 5 (five) minutes as needed. 01/06/2025 Active pregabalin (LYRICA) 25 mg oral capsule Take 1 capsule (25 mg) by mouth twice a day. 11/15/2024 Active tiotropium (SPIRIVA) 18 mcg Inhl capsule with inhalation device Inhale 1 capsule Daily. 02/08/2024 Active celecoxib (CELEBREX) 200 mg oral capsule Take 1 capsule (200 mg) by mouth once daily. Active PRALUENT PEN 150 mg/mL SubQ PnIj Inject 1 mL (150 mg) under the skin every 14 (fourteen) days. 07/09/2024 Active Active Problems Problem Noted Date Diagnosed Date Obesity with body mass index 30 or greater 01/20 Osteoarthrosis 01/20/2025 Overview (01/20/2025): Right knee replacement surgery scheduled Left foot drop 11/15/2024 Coronary artery disease with stable angina pectoris, unspecified vessel or lesion type, unspecified whether point hope ira or transplanted heart 01/01/2024 Melanoma of skin 01/01/2024 Pancytopenia 07/10/2023 Depression, recurrent 02/07/2023 History of peripheral stem cell transplant 08/11 Fever of unknown origin 03/28/2022 Multiple myeloma not having achieved remission 0 02/14/2022 Status post total shoulder replacement 2 Aspirin intolerance 09/28/2021 Internal hemorrhoids 07/20/2021 Hemorrhage of large intestine due to diverticula r disease 07/15/2021 Chronic obstructive pulmonary disease without ex acerbation 05/30/2021 Diverticulosis 05/30/2021 Hematochezia 05/30/2021 Hyperopia of both eyes with astigmatism and pres byopia 05/08/2020 Nuclear senile cataract of both eyes 05/08/2020 History of GI diverticular bleed 04/17/2020 Elevated lipoprotein(a) 07/08/2019 Elevated CK 12/05/2018 Statin intolerance 12/05/2018 Obstructive sleep apnea syndrome in adult 2017 Former smoker 10/12/2015 History of total bilateral knee replacement 06/06 Benign essential HTN 05/21/2011 Displacement of lumbar inter vertebral disc without myelopathy 12/09/2010 Encounters Date Type Department Care Team Description 01/31/2025 12:45 PM CDT - 01/31/2025 2:40 PM CDT Surgery [facility] Operating Room [address] [place] [id number] Bob Rodriguez MD INTRACEPT L4- L5 01/31/2025 11:33 AM CDT - 01/31/2025 11:59 PM CDT Hospital Encounter [facility] Radiology [address] [place] [id number] Keira Mckeon, Labor Contractor Discharge Disposition: Returning Home/Self Care 01/31/2025 10:38 AM CDT - 01/31/2025 2:28 PM CDT Hospital Encounter Patient [facility] [address] [place] [id number] Bob Rodriguez MD Vertebrogenic low back pain Discharge Disposition: Returning Home/Self Care 01/31/2025 Travel from Last 3 Months Social History Tobacco Use Types Packs/Day Years Used Date Smoking Tobacco: Former Cigarettes Smokeless Tobacco: Never Tobacco Cessation:Counseling Given: Not Answered Alcohol Use Standard Drinks/Week Comments Not Currently 0 (1 standard drink = 0.6 oz pur e alcohol) Sex and Gender Information Value Date Recorded Sex Assigned at Not on file Legal Sex Male 3:41 PM CDT Gender Identity Male 12/26/2024 3:44 PM CDT Sexual Orientation Not on file Last Filed Vital Signs Vital Sign Reading Time Taken Comments Blood Pressure 131/83 01/31/2025 2:00 PM CDT Pulse 70 01/31/2025 2:15 PM CDT Temperature 36.1 C (97 F) 01/31/2025 1:45 PM CDT Respiratory Rate 16 01/31/2025 2:00 PM CDT Oxygen Saturation 96% 01/31/2025 2:15 PM CDT Inhaled Oxygen Concentration - - Weight 98.1 kg (216 lb 6 oz) 01/31/2025 10:52 AM CDT Height 165.1 cm (5' 5) 01/31/2025 10:52 AM CDT Body Mass Index 36.01 01/31/2025 10:52 AM CDT Plan of Treatment Health Maintenance Due Date Last Done Comments AAA Ultrasound Screening 1950 Colonoscopy 1950 Lipid Screening 1950 Depression Follow-Up (PHQ-9) 02/17/1951 Spirometry 08/18/1955 COVID-19 Vaccine ( season) 2025 01/22/2025, 05/30/2024, 06/27/2023, Additional history exists Influenza Vaccine (#1) 2025 , 06/27/2023, 09/28/2022, Additional history exists Yearly Review of HCD 12/26/2025 12/26/2024 Adult Tetanus Booster 04/20/2027 04/20/2017 , 09/04/2006, 09/04/1997 Hepatitis C Screening Completed 04/20/2017 Pneumococcal 50+ Years Completed 3, 07/06/2018, 05/24/2016, Additional history exists Zoster Vaccine Completed 04/24/2023, 02/03, 03/13/2019, Additional history exists RSV Vaccines Completed 07/11/2023 Meningococcal B Vaccine Aged Out No l onger eligible based on patient's age to complete this topic Procedures Procedure Name Priority Date/Time Associated Diagnosis Comments XR C-ARM SPINE Routine 01/31/2025 1:28 PM CDT Pain THERMAL DSTRJ INTRAOSSEOUS BVN 1ST 2 LMBR/SAC 01/31/2025 11:57 AM CDT Vertebrogenic low back pain from Last 3 Months Results * XR C-ARM SPINE (01/31/2025 1:28 PM CDT) Anatomical Region Laterality Modality Computed Radiogr aphy 01/31/2025 2:04 PM CDT Impressions 01/31/2025 2:05 PM CDT IMPRESSION: Intraoperative fluoroscopy provided during placement of Intracept devices at L4 and L5. 14 AP and lateral spot fluoroscopic images obtained during the procedure. 2 minutes and 41 seconds of fluoroscopic time utilized. REPORT SIGNED BY ABDIEL PIERRE M.D. Narrative 01/31/2025 2:05 PM CDT EXAM: XR C-ARM SPINE DATE: 01/31/2025 11:33 CLINICAL DATA: L4-5 pain. Fluoroscopic guidance during placement of Intracept device. COMPARISON: None Procedure Note Abdiel Pierre MD - 01/31/2025 EXAM: XR C-ARM SPINE DATE: 01/31/2025 11:33 CLINICAL DATA: L4-5 pain. Fluoroscopic guidance during placement ofIntracept device. COMPARISON: None IMPRESSION IMPRESSION: Intraoperative fluoroscopy provided during placement ofIntracept devices at L4 and L5. 14 AP and lateral spot fluoroscopic imagesobtained during the procedure. 2 minutes and 41 seconds of fluoroscopic time utilized. REPORT SIGNED BY ABDIEL PIERRE M.D. Bob Rodriguez MD XRAY ORDERABLE Final Result from Last 3 Months Insurance [employer] Advance Directives For more information, please contact: [phone] * Full Code (Latest Code Status on File) Date Activated Date Inactivated Comments 01/31/2025 2:04 PM 01/31/2025 8:33 PM Question Answer Comments How was code status determined? Patient Care Teams Merchandising Specialist Relationship Specialty Start Date End Date Md Charis PCP - General 01/31/25
--- OUTSIDE RECORDS SUMMARY | 2025-03-30 04:30 | XMS_ITS | Clinical Summary ---
Author Organization [facility] Address [address] [place] [address] Care Team Providers Care Refinish Technician Name Role Phone Elsewhere, Pcp Primary Care Provider Unavailabl e Source Comments Patient records contain information from all sites at [facility]. For routine questions regarding patient records, call [phone] during business hours, M-F 8:00 AM - 5:00 PM Central Time. Record requests for emergency care only can be directed to [phone] at any time.[facility] Allergies Active Allergy Reactions Criticality Noted Date Comments Atorvastatin Myalgia 05/30/2021 Gemfibrozil Myalgia 05/30/2021 Clopidogrel Hives (Reselect Reaction) Rosuvastatin Other (see comments) 05/30/2021 Ezetimibe Myalgia 05/30/2021 Simvastatin Other (see comments) 05/30/2021 Muscle weakness Medications tiotropium (Spiriva with HandiHaler) 18 mcg inhalation capsule Inhale 18 mcg daily. Using the HandiHaler device. Active hydroCHLOROthia zide (HYDRODIURIL) 25 mg tablet Take 25 mg by mouth daily. Active cholecalciferol , vitamin D3, 25 mcg (1,000 Unit) tablet Take 4,000 Units by mouth daily. Active alirocumab (Praluent Pen) 150 mg/mL pen injector Inject 150 mg under the skin every 14 (fourteen) days. HOLD Active lisinopriL (PRINIVIL,ZESTR IL) 10 mg tablet Take 10 mg by mouth daily. 2 Active gabapentin (NEURONTIN) 300 mg capsule Take 1 capsule (300 mg total) by mouth 2 (two) times a day. 90 capsule 1 09/08/2022 12:22 PM SAS SQL DEVELOPER 3 Active nitroglycerin (NITROSTAT) 0.[address] 0.4 mg under the tongue every 2 (two) hours as needed. 3 Active lenalidomide (REVLIMID) 5 mg capsule Take 5 mg by mouth as directed. 5 mg every other day for 3 weeks on and 1 week off 3 Active aspirin [address] tablet Take 81 mg by mouth daily. Active acetaminophen (Tylenol Extra Strength) 500 mg tablet Take 1,000 mg by mouth 2 (two) times a day. 2 Active melatonin 3 mg capsule Take 3 mg by mouth at bedtime. 3 Active B complex-vitamin s (BALANCE B-50) tablet Take 1 tablet by mouth daily. 3 Active escitalopram (LEXAPRO) 20 mg tablet Take 1 tablet by mouth every morning. 3 Active albuterol 90 mcg/actuation inhaler Inhale 2 puffs every 4 (four) hours as needed. 4 Active DME Bi-level PAP DME Order Active colestipoL (Colestid) 1 gram tablet Take 1 tablet (1 g total) by mouth 2 (two) times a day. 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 from Last 3 Months Immunizations Immunization Administration Dates Next Due DTaP-IPV/Hib (Pentacel) 06/27/2023,04/24/2023, HZV (ZOSTAVAX) 09/29/2015 HepA Adult 08/24/2023,02/22/2023 HepB Dialysis 08/24/2023,04/24/2023,02/22/2023 Influenza high dose QV(65 ye ars or older) (PF) 06/27/2023,06/15/2021 Influenza, Quadrivalent, Adj uvanted, Preservative Free 09/28/2022,05/26/2022,06/22/2020 MENACWY-TT (MENQUADFI)(MCV4) 04/24/2023,02/23/20 23 PCV13 05/24/2016 PCV20 02/22/2023 PPSV23 07/06/2018,02/28/2012 RSV: respiratory syncytial v irus (AREXVY) recombinant vaccine 07/11/2023 RZV (SHINGRIX) 04/24/2023,,03/13/2019,2018 SARS-COV-2 (COVID-19) - MODE RNA (12 YEARS AND OLDER) Fall Seasonal 06/27/2023 SARS-COV-2 (COVID-19) - PFIZ ER BIVALENT TS(Discontinued)(12 YEARS OR OLDER) 04/24/2023,03/16/2023,02/22/2023 Td Preservative Free (TENIVA C, DECAVAC) 04/20/2017 Td, (Adult) Unspecified 09/04/1997 Tdap 09/04/2006 influenza trivalent high dos e (HD)(PF) 06/13/2018 Social History Tobacco Use Types Packs/Day Years Used Date Smoking Tobacco: Former Cigarettes Q uit: 1990 Smokeless Tobacco: Never Tobacco Cessation:Counseling Given: Not Answered Alcohol Use Standard Drinks/Week Comments Never 0 (1 standard drink = 0.6 oz pur e alcohol) [facility] Utilities Answer Date Recorded In the past 12 months has e [employer], gas, oil, or water [employer] threatened to shut off services in your [...] your living situation today? I have a [facility] place to live 08/26/2024 Education Answer Date [...] Orientation Straight 03/26/2022 3: 03 PM CDT Last Filed Vital Signs Vital Sign Reading Time Taken Comments Blood Pressure 116/75 08/29/2024 2:11 PM SAS SQL DEVELOPER Pulse 61 08/29/2024 2:11 PM SAS SQL DEVELOPER Temperature 36.8 C (98.2 F) 08/29/2024 2:11 PM SAS SQL DEVELOPER Respiratory Rate 16 09/16/2022 4:00 PM SAS SQL DEVELOPER Oxygen Saturation 98% 09/16/2022 4:00 PM SAS SQL DEVELOPER Inhaled Oxygen Concentration - - Weight 98.9 kg (218 lb 2.3 oz) 08/29/2024 2:11 P M SAS SQL DEVELOPER Height 166.5 cm (5' 5.55) 08/29/2024 2:11 PM CS T Body Mass Index 35.69 08/29/2024 2:11 PM SAS SQL DEVELOPER Plan of Treatment Health Maintenance Due Date Last Done Comments CT Colonography 1950 Cologuard 1950 FIT 1950 IPV Vaccines (3 of 3 - Adult catch-up series) 12/27/2023 06/27/2023, 04/24/2023, 02/22/2023 Depression Screening (Annual PHQ-2) 09/04/2024 Fall Risk Screen (Annual) 09/04/2024 COVID-19 Vaccine (9 - Pfizer risk season) 2024 05/30/2024, 06/27/2023, 04/24/2023, Additional history exists Influenza Vaccine (#1) 2025 , 06/27/2023, 09/28/2022, Additional history exists Creatinine Level (Kidney Function Test) 08/29/2025 08/29/2024, 01/05/2024, 08/24/2023, Additional history exists Potassium Level 08/29/2025 08/29/2024, 05/0 11/2023, 08/24/2023, Additional history exists Sodium Level 08/29/2025 08/29/2024, 05/0 11/2023, 08/24/2023, Additional history exists Fasting Glucose for Diabetes Screening 08/29/2027 08/29/2024, 01/05/2024, 07/25/2023, Additional history exists DTaP,Tdap,and Td Vaccines (6 - Td or Tdap) 06/27/2033 06/27/2023, 04/24/2023, 02/22/2023, Additional history exists Colonoscopy 06/17/2034 06/17/2024, 05/06, 05/31/2021 Colorectal Cancer Screening 06/17/2034 Abdominal Aortic Aneurysm (AAA) Screen Completed 03/28/2022 Hepatitis C Screening Completed 08/08/2022 Pneumococcal vaccine (50+ years) Completed 02/22/2023, 07/06/2018, 05/24/2016, Additional history exists Zoster Vaccines Completed 04/24/2023, 02/03, 03/13/2019, Additional history exists RSV vaccine - (32-36 weeks) or 60+ years Completed 07/11/2023 Hepatitis A Vaccines Completed 08/24/2023, 02/23/20 Hepatitis B Vaccines Completed 08/24/2023, 04/24/2023, 02/22/2023 Hepatitis B Screening Discontinued 09/18/2023 HPV Vaccines Aged Out No longer eligi ble based on patient's age to complete this topic Medical Devices Implanted Type 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 Pins/Screws/Mac s Hardware e.g. pins/screws /rods Left: Thumb Description:Left thumb joint replacement Knee Implant Knee Implant Bilateral: Knee Description:Bilateral knee r eplacements. [place], [place] Shoulder Implant Shoulder Implant Bilateral: Shoulder Description:Bilateral should er replacements [place], [place] Stent Other Stent Other Heart Description:2 cardiac stents placed at [facility] Procedures Procedure Name Priority Date/Time Associated Diagnosis Comments COMPREHENSIVE METABOLIC PANEL, S/P Routine 08/29/2024 9:12 AM SAS SQL DEVELOPER Multiple Myeloma In Remission (HCC) HEPATITIS B SURFACE ANTIGEN Routine 09/18/2023 12:01 PM SAS SQL DEVELOPER Multiple Myeloma In Remission (HCC) MBC TISSUE DONOR SCREEN TEST SET Routine 08/08/2022 9:20 AM SAS SQL DEVELOPER Multiple Myeloma Not Having Achieved Remission (HCC) Transplant Stem Cell (HCC) CT ABDOMEN PELVIS WITH IV CONTRAST RAD - Semiurgent (Fast; most ED patients; some inpatients) 03/28/2022 7:02 PM CDT COLONOSCOPY Routine 05/31/2021 2:54 PM CDT from Last 3 Months or Most Recently Relevant to Health Maintenance Results * (ABNORMAL) Comprehensive Metabolic Panel (08/29/2024 9:12 AM SAS SQL DEVELOPER) Pathologist [facility] Potassium, S 4.1 3.6 - 5.2 mmol/L 08/29/2024 10:22 AM SAS SQL DEVELOPER DTL Sodium, S 138 135 - 145 mmol/L 08/29/2024 10:22 AM SAS SQL DEVELOPER DTL Chloride, S 103 98 - 107 mmol/L 08/29/2024 10:22 AM SAS SQL DEVELOPER DTL Bicarbonate, S 21(L) 22 - 29 mmol/L 08/29/2024 10:22 AM SAS SQL DEVELOPER DTL Anion Gap 14 7 - 15 08/29/2024 10:22 AM SAS SQL DEVELOPER DTL BUN (Blood Urea Nitrogen), S 17 8 - 24 mg/dL 08/29/2024 10:22 AM SAS SQL DEVELOPER DTL Creatinine 0.86 0.74 - 1.35 mg/dL 08/29/2024 10:22 AM SAS SQL DEVELOPER DTL Estimated GFR (eGFR) >90 >=60 mL/min/BS A 08/29/2024 10:22 AM SAS SQL DEVELOPER DTL Comment: Estimated GFR calculated using the 2020 CKD_EPI creatinine equation. Calcium, Total, S 9.6 8.8 - 10.2 mg/dL 08/29/2024 10:22 AM SAS SQL DEVELOPER DTL Glucose, S 79 70 - 140 mg/dL 08/29/2024 10:22 AM SAS SQL DEVELOPER DTL Protein, Total, S 6.5 6.3 - 7.9 g/dL 08/29/2024 10:22 AM SAS SQL DEVELOPER DTL Albumin, S 4.3 3.5 - 5.0 g/dL 08/29/2024 10:22 AM SAS SQL DEVELOPER DTL Aspartate Aminotransferase (AST), S 32 8 - 48 U/L 08/29/2024 10:22 AM SAS SQL DEVELOPER DTL Alkaline Phosphatase, S 61 40 - 129 U/L 08/29/2024 10:22 AM SAS SQL DEVELOPER DTL Alanine Aminotransferase (ALT), S 36 7 - 55 U/L 08/29/2024 10:22 AM SAS SQL DEVELOPER DTL Bilirubin, Total, S 0.6 0.0 - 1.2 mg/dL 08/29/2024 10:22 AM SAS SQL DEVELOPER DTL Blood (Blood, Venous) 08/29/2024 9:12 AM SAS SQL DEVELOPER 08/29/2024 9:59 AM SAS SQL DEVELOPER us Rosey Mcgowan P.A.-C., M.S. LAB BLOOD ADD-ON Fin al Result Performing Organization Address City/[facility]/ZIP Co de Phone Number [facility] [address] [place] [address], [facility] DTL [facility] [address] [place] [address] * Hepatitis B Surface Antigen (09/18/2023 12:01 PM SAS SQL DEVELOPER) Pathologist [facility] HBs Antigen, S Negative Negative 09/18/2023 9:13 PM SAS SQL DEVELOPER [facility] Blood (Blood, Venous) 09/18/2023 12:01 PM SAS SQL DEVELOPER 09/18/2023 4:36 PM SAS SQL DEVELOPER Rosey Mcgowan P.A.-C., M.S. LAB MICROBIOLOGY - B LOOD ORDERABLES Final Result Performing Organization Address [facility] Co de Phone Number [facility] [address] [place] [address] [facility] [address] [place] [address] * MBC Tissue Donor Screen Test (08/08/2022 9:20 AM SAS SQL DEVELOPER) Pathologist [facility] HBsAg Screen Donor Non-reactiv e 08/12/2022 8:51 AM SAS SQL DEVELOPER MBC HBc Total Ab Donor Non-reactiv e 08/12/2022 8:51 AM SAS SQL DEVELOPER MBC HBV AKBAR Individual Donor Non-reactiv e 08/12/2022 8:51 AM SAS SQL DEVELOPER MBC HCV AKBAR Individual Donor Non-reactiv e 08/12/2022 8:51 AM SAS SQL DEVELOPER MBC HIV-1 AKBAR Individual Donor Non-reactiv e 08/12/2022 8:51 AM SAS SQL DEVELOPER MBC HIV-1/-2 Plus O Ab Screen Donor Non-reactiv e 08/12/2022 8:51 AM SAS SQL DEVELOPER MBC HCV Ab Screen Donor Non-reactiv e 08/12/2022 8:51 AM SAS SQL DEVELOPER MBC HTLV-I/-II Ab Screen Donor Non-reactiv e 08/12/2022 8:51 AM SAS SQL DEVELOPER MBC T. cruzi Total Ab Donor Non-reactiv e 08/12/2022 8:51 AM SAS SQL DEVELOPER MBC Syphilis Ab Screen Donor Non-reactiv e 08/12/2022 8:51 AM SAS SQL DEVELOPER MBC Comment: This test is done by the Microhemagglutination assay- Treponema pallidum (MHA-TP) method. CMV Total Ab Donor Negative 2021 8:51 AM SAS SQL DEVELOPER [facility] West Nile Virus AKBAR Donor Non-reactiv e 08/12/2022 8:51 AM SAS SQL DEVELOPER [facility] Comment: Failure to detect WNV RNA does not rule out the possibility of West Nile virus infection. This result should be evaluated in the context of the individual's risk factors and clinical findings. Blood (Blood, Venous) 08/08/2022 9:20 AM SAS SQL DEVELOPER 08/08/2022 9:44 AM SAS SQL DEVELOPER [facility] DONOR TESTING [facility] - 08/12/2022 8:51 AM SAS SQL DEVELOPER Specimen Information: Specimen ID: [id number] Specimen Type: Blood Specimen Collection Start Date: 08/08/2022 9:21 AM Specimen Received Date: 08/08/2022 9:44 AM Specimen ID: [id number] Specimen Type: Blood Specimen Collection Start Date: 08/08/2022 9:21 AM Specimen Received Date: 08/08/2022 9:44 AM Specimen ID: [id number] Specimen Type: Blood Specimen Collection Start Date: 08/08/2022 9:21 AM Specimen Received Date: 08/08/2022 9:44 AM Specimen ID: [id number] Specimen Type: Blood Specimen Collection Start Date: 08/08/2022 9:20 AM Specimen Received Date: 08/08/2022 9:44 AM Luis Heard APRN C.N.P., M.S.N. LAB BLOOD N ON ADD-ON Final Result [facility] DONOR TESTING AND [facility] [address] [place] [address], [facility], Donor Testing [facility] [address] [place] [address] * CT Abdomen Pelvis with IV Contrast (03/28/2022 7:02 PM CDT) Anatomical Region Laterality Modality Abdomen, Pelvis, Abdominal R ST LOS, Abdominal ARZ LOS, Abdominal FLA LOS N/A Computed Tomograp hy, Computed Tomography 03/28/2022 7:00 PM CDT Impressions 03/28/2022 7:33 PM CDT 1. Nonspecific superficial soft tissue stranding posterior to the L1-2 spinous process. 2. Indeterminant focal ureteral thickening. This could be further evaluated with outpatient CT urogram to exclude malignancy. 3. Moderate urinary bladder distention and enlarged prostate. 4. Ectasia of the common iliac arteries bilaterally. 5. Trace pleural effusions and bibasilar atelectasis. Narrative 03/28/2022 7:33 PM CDT EXAM: CT ABDOMEN PELVIS WITH IV CONTRAST COMPARISON: None FINDINGS: Indeterminate focal thickening/enlargement of the left ureter as it crosses over the left iliac vessels (series 3 image 108). Ectasia of the common iliac arteries measuring up to 2.4 cm on the right and 2.2 cm on the left. Calcified splenic granulomas. Renal cysts. Marked urinary bladder distention. Heterogeneously enlarged prostate. Trace pleural effusions and bibasilar atelectasis. Small fat-containing right inguinal hernia. Moderate lumbar spondylosis greatest at L4-S1. Small superficial soft tissue stranding posterior to the L1-2 spinous process Procedure Note Kenny Finley M.D. - 03/28/2022 EXAM: CT ABDOMEN PELVIS WITH IV CONTRAST COMPARISON: None FINDINGS: Indeterminate focal thickening/enlargement of the left ureter as itcrosses over the left iliac vessels (series 3 image 108). Ectasia of the common iliac arteries measuring up to 2.4 cm on the rightand 2.2 cm on the left. Calcified splenic granulomas. Renal cysts. Marked urinary bladderdistention. Heterogeneously enlarged prostate. Trace pleural effusions and bibasilar atelectasis.Small fat-containing right inguinal hernia. Moderate lumbar spondylosis greatest at L4-S1. Small superficial softtissue stranding posterior to the L1-2 spinous process IMPRESSION: 1. Nonspecific superficial soft tissue stranding posterior to the L1-2spinous process. 2. Indeterminant focal ureteral thickening. This could be furtherevaluated with outpatient CT urogram to exclude malignancy. 3. Moderate urinary bladder distention and enlarged prostate. 4. Ectasia of the common iliac arteries bilaterally. 5. Trace pleural effusions and bibasilar atelectasis. us Melanie Guerin M.D. IMG CT PROCEDURES Final Re sult * Colonoscopy (05/31/2021 2:54 PM CDT) 05/31/2021 2:54 PM CDT Impressions [facility] - 05/31/2021 4:47 PM CDT Post-op Diagnoses: - The examined portion of the ileum was normal. - Diverticulosis. A single diverticulum, about 25cm from the anus contained an adherent clot; . No bleeding upon irrigation otherwise - No specimens collected. - Non-bleeding internal hemorrhoids were found during retroflexion. Narrative [facility] - 05/31/2021 4:47 PM CDT Bobby 6 GI GI Patient Name: Thomas Simental Date of : 1950 Age: 71 Gender: Male Procedure Date: 05/31/2021 Procedure: Colonoscopy Providers: Maribel Dorman,B.Ch., Ph.D., Cordell Sanchez MD (Fellow) Referring Provider: Kathy Barroso Pre-op Diagnoses: Hematochezia Recommendation: - Return patient to hospital panchal. If continues to have recurrent diverticular bleed, consider evaluation by colorectal surgery for sigmoid resection as outpatient. Findings: The terminal ileum appeared normal. There is no endoscopic evidence of stigmata of bleeding in the entire colon. Multiple small and large-mouthed diverticula were found in the colon. There was evidence of an impacted diverticulum. There was no evidence of diverticular bleeding except for 1 diverticulum with small unadherent clot. No bleeding upon irrigation otherwise. Non-bleeding internal hemorrhoids were found during retroflexion. Procedural Details: The patient was seen, evaluated, history reviewed, airway and heart-lung exams were performed by licensed provider and were satisfactory for planned level of sedation care. The risks, benefits and alternatives for the procedure and sedation were discussed and informed consent was obtained. A procedural pause was conducted in the presence of assisting personnel to verify the correct patient identity and procedure to be performed. Throughout the procedure, the patient's blood pressure, pulse, and oxygen saturations were monitored continuously. The Pediatric Colonoscope was introduced under direct vision through the anus and advanced to the cecum, identified by appendiceal orifice and ileocecal valve. The colonoscopy was performed without difficulty. The patient tolerated the procedure well. The quality of the bowel preparation was evaluated using the BBPS (Sunset Bowel Preparation Scale) with scores of: Right Colon = 3, Transverse Colon = 3 and Left Colon = 3 (entire mucosa seen well with no residual staining, small fragments of stool or opaque liquid). The total BBPS score equals 9. Estimated Blood Loss: Estimated blood loss: none. Complications: No immediate complications. Estimated blood loss: None. Sedation: Anesthesia was administered by an anesthesia professional. The following parameters were monitored: oxygen saturation, heart rate, blood pressure, respiratory rate, EKG, adequacy of pulmonary ventilation, and response to care. Attending Participation: I was present and participated during the entire procedure, including non-oleary portions. Maribel Dorman,B.Ch., Ph.D. 05/31/2021 4:47:19 PM This report has been signed electronically. Number of Addenda: 0 Kathy Barroso M.D. GI PROCEDURE ORDERABLES Final Result [facility] NA from Last 3 Months or Most Recently Relevant to Health Maintenance Additional Health Concerns Infection Onset Date Last Indicated Protective Environment 02/15/2023 3 Insurance MEDICARE [employer] [place] [id number] Advance Directives For more information, please contact: [phone] * Full Code (Latest Code Status on File) Date Activated Date Inactivated Comments 03/28/2022 9:41 PM 03/30/2022 3:52 PM Question Answer Comments Full Code: Discussed * Full Code Date Activated Date Inactivated Comments 05/30/2021 1:16 PM 06/01/2021 4:41 PM Question Answer Comments Full Code: Discussed Care Teams Refinish Technician Relationship Specialty Start Date End Date Elsewhere, Pcp PCP - General Internal Medicine 03/28/22
--- OUTSIDE RECORDS SUMMARY | 2025-03-30 04:30 | XMS_ITS | Clinical Summary ---
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 Active cholecalciferol (VITAMIN D3) 1,000 unit tablet Take 4,000 units by mouth. Active lenalidomide (REVLIMID) 5 mg cap capsule 12/16/19 23 Active acetaminophen (TYLENOL EXTRA STRGTH) 500 mg tablet Take 1,000 mg by mouth. 03/08/20 22 Active melatonin 3 mg cap Take 3 mg by mouth. 06/07/20 23 Active VITAMIN B COMPLEX ORAL Take 1 Tablet by mouth once daily. 11/11/19 23 Active colestipoL (COLESTID) 1 gram tablet TAKE ONE TABLET BY MOUTH ONE TIME DAILY* 04/22/20 24 Active alirocumab (Praluent Pen) 150 mg/mL pnijIndications:H yperlipidemia, unspecified hyperlipidemia type Inject the contents of 1 pre-filled pen (150 mg) under the skin every 2 weeks. 6 mL 3 5 4:28 PM CDT 07/09/20 24 Active celecoxib (CELEBREX) 200 mg capsuleIndication s:Displacement of lumbar intervertebral disc without myelopathy,Lumbar disc herniation Take 1 Capsule (200 mg) by mouth once daily with a meal. 90 Capsule 11/16/19 25 Active pregabalin (LYRICA) 25 mg capsuleIndication s:Displacement of lumbar intervertebral disc without myelopathy,Lumbar disc herniation Take 1 Capsule (25 mg) by mouth two times daily. 180 Capsule 1 11/16/19 25 Active losartan (COZAAR) 25 mg tabletIndications :Benign essential HTN Take 1 Tablet (25 mg) by mouth once daily. 90 Tablet 3 11/16/19 25 Active cyclobenzaprine 10 mg tabletIndications :Lumbar disc herniation,Displa cement of lumbar intervertebral disc without myelopathy Take 1 Tablet (10 mg) by mouth once daily. 90 Tablet 01/07/20 25 Active nitroglycerin 0.4 mg sublingual tabletIndications :ASCVD (arteriosclerotic cardiovascular disease),Chest pain, unspecified type,Hospital discharge follow-up Place 1 Tablet (0.4 mg) under the tongue every 5 minutes if needed for Chest Pain. Up to 3 tablets in 15 minutes. 25 Tablet 01/07/20 25 Active escitalopram oxalate 20 mg tabletIndications :Depression, recurrent TAKE ONE TABLET BY MOUTH IN THE MORNING 90 Tablet 01/12/20 25 Active albuterol HFA 90 mcg/actuation inhalerIndication s:Wheeze Inhale 2 Puffs by mouth every 4 hours if needed for Shortness of Breath 1st choice. 1 Each 03/06/20 25 Active BIPAPIndications: ART (obstructive sleep apnea) BIPAP (E0470) machine for home use at pressure: 10/8, Choice of mask (A7030 or A7034) w/full face cushion (A7031) x1/mo, nasal cushion (A7032) x2/mo, or nasal pillows (A7033) x 2/mo; Length of Need: 99 months; Frequency of use: Daily 1 Each 03/06/20 25 Active tiotropium 18 mcg inhalation capsuleIndication s:COPD mixed type (HC) Inhale 1 Capsule (18 mcg) by mouth once daily. 90 Capsule 03/06/20 25 Active hydroCHLOROthiazi de 25 mg tabletIndications :Hypertension, unspecified type TAKE ONE TABLET BY MOUTH ONE TIME DAILY 90 Tablet 03/25/20 25 Active diphenhydrAMINE (BENADRYL) 25 mg capsuleIndication s:Insomnia, idiopathic Take 1 Capsule (25 mg) by mouth every 4 hours if needed (insomnia). 30 Capsule 03/24/20 25 Active tiotropium (SPIRIVA HANDIHALER) 18 mcg inhalation capsuleIndication s:COPD mixed type (HC) Inhale 1 Capsule (18 mcg) by mouth once daily. 90 Capsule 3 02/08/20 24 2024 Discontinued(R eorder (E-cancel not sent)) BIPAPIndications: ART (obstructive sleep apnea) BIPAP (E0470) machine for home use at pressure: 10/8, Choice of mask (A7030 or A7034) w/full face cushion (A7031) x1/mo, nasal cushion (A7032) x2/mo, or nasal pillows (A7033) x 2/mo; Length of Need: 99 months; Frequency of use: Daily 1 Each 02/08/20 24 2024 Discontinued(R eorder (E-cancel not sent)) albuterol HFA (PRO-AIR; VENTOLIN; PROVENTIL) 90 mcg/actuation inhalerIndication s:Wheeze Inhale 2 Puffs by mouth every 4 hours if needed for Shortness of Breath 1st choice. 1 Each 03/29/20 24 2024 Discontinued(R eorder (E-cancel not sent)) hydroCHLOROthiazi de 25 mg tabletIndications :Hypertension, unspecified type TAKE ONE TABLET BY MOUTH ONE TIME DAILY 90 Tablet 12/20/19 25 2024 Discontinued tiotropium 18 mcg inhalation capsuleIndication s:COPD mixed type (HC) Inhale 1 Capsule (18 mcg) by mouth once daily. 90 Capsule 3 03/06/20 25 2024 Discontinued(R eorder (E-cancel not sent)) tiotropium 18 mcg inhalation capsuleIndication s:COPD mixed type (HC) Inhale 1 Capsule (18 mcg) by mouth once daily. 90 Capsule 3 03/06/20 25 2024 Discontinued(* Medication adjustment) Active Problems Problem Noted Date Diagnosed Date Left foot drop 11/15/2024 Coronary artery disease with stable angina pectoris, unspecified vessel or lesion type, unspecified whether chefornak or transplanted heart 01/01/2024 Melanoma of skin 01/01/2024 Pancytopenia 07/10/2023 Depression, recurrent 02/07/2023 History of peripheral stem cell transplant 08/11 Multiple myeloma not having achieved remission 0 02/14/2022 Status post total shoulder replacement 2 Aspirin intolerance 09/28/2021 Internal hemorrhoids 07/20/2021 Diverticulosis of large intestine with hemorrhag e 07/15/2021 Diverticulosis 05/30/2021 Nuclear senile cataract of both eyes 05/08/2020 Hyperopia of both eyes with astigmatism and pres byopia 05/08/2020 History of GI diverticular bleed 04/202004/17/20 20 Elevated lipoprotein(a) - 22 9 in 2010; started Repatha - Lpa 84.1 201807/08/2019 Coronary artery disease 12/05/2018 Overview (01/17/2022): -Stenting (BMS) to LCx 03/2011 -Stress Myoview 10/07/2015 Medium to large sized area of ischemia within the inferior and inferolateral wall from the base to the apex EF 62% -Angio 10/12/2015 The LMCA has mild luminal irregularities. The LAD is mild to moderately diseased. The Circumflex has patent stent(s) from a previous procedure and has mild luminal irregularities. The Ramus has mild luminal irregularities. The RCA is totally occluded but today we see a small channel connecting proximal and distal RCA (would need GEOLOGY ASSOCIATE procedure if clinically indicated). 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 0 12/09/2010 Personal history of colonic polyps 01/21/2009 Overview (06/20/2024): Colonoscopy 03/2014 diverticulosis repeat in 5 years Colonoscopy 11/2018 large polyp, repeat in 3 years Colonoscopy 06/2024 2-TA, repeat in 5 years Obesity with body mass index 30 or greater Osteoarthritis Overview (01/17/2022): Right knee replacement surgery scheduled Resolved Problems Problem Noted Date Diagnosed Date Resolved Date Low vitamin D level - 20.5 i n 2008, now repleted 12/05/2018 10/14/2020 Coagulopathy 09/18/2018 04/17/2020 Benign neoplasm of duodenum, jejunum, and ileum 02/05/2007 01/21/2009 Overview (01/21/2009): Encounters Date Type Department Care Team Description 03/24/2025 1:00 PM CDT Ancillary Procedure [facility] [address] [place] [address] 03/24/2025 11:00 AM CDT Office Visit [facility] [address] [place] [address] Dacia Harrison DO Leg Pain/problem (RIGHT thigh is sore for x6 weeks ) 03/24/2025 Travel 03/23/2025 Refill [facility] [address] [place] [address] Dacia Harrison DO Refill Request (Hydrochlorothiazide) 03/17/2025 Nurse Triage [facility] [address] [place] [address] Dacia Harrison DO 03/11/2025 Telephone [facility] [address] [place] [phone] Isaak Ambriz MD Prior Authorization (tiotropium bromide 18 mcg capsule with inhalation device (SPIRIVA HANDIHALER) APPROVED 02/25/25 UNTIL FURTHER NOTICE) 03/06/2025 10:00 AM CDT Office Visit [facility] [address] [place] [address] Isaak Ambriz MD Follow Up (Annual COPD/ART on BiPAP) 03/06/2025 Travel 02/19/2025 Orders Only [facility] Scanner 1 scan: (1-Ord) RESMED, COMPLIANCE REPORT, 02/19/2025 02/19/2025 Orders Only [facility] Scanner 1 scan: (1-Ord) COMPLIANCE REPORT, 02/19/2025 02/13/2025 Telephone [facility] [address] [facility] [address] [facility] [address] [place] [phone] Isaak Ambriz MD Appointment (COPD follow up) 01/10/2025 Refill [facility] [address] [place] [address] Dacia Harrison DO Refill Request (Escitalopram Oxalate) 01/06/2025 8:05 AM CDT Office Visit [facility] [address] [place] [address] Dacia Harrison DO Preoperative Exam (January 31 - [facility] - Back Injection - Dr. Appiah - ) 01/06/2025 Travel 01/03/2025 Refill [facility] [address] [place] [address] Dacia Harrison DO Refill Request (Cyclobenzaprine) from Last 3 Months Immunizations Immunization Administration Dates Next Due AMB INFLUENZA IIV3 (AGE 65+ YRS) PF (Flu Clinic Only) 06/13/2018 Amb Influenza, Inactivated A IIV4 (Age 65+ Years) Preserv Free 06/22/2020 COVID-19 VACCINE SPIKEVAX (M ODERNA 50MCG/0.5ML) 12YO+ PFS 05/30/2024,06/27/2023 COVID-19 vaccine (Rafter NTech 30mcg/0.3mL) 12YO+ BIVALENT PF, MDV 04/24/2023,03/16/2023,05/26/2022 COVID-19 vaccine (Rafter NTech 30mcg/0.3mL) 12YO+ SHANTE-SUCROSE PF, MDV 12/27/2021 COVID-19 vaccine (Rafter NTech 30mcg/0.3mL) PF, MDV 06/03/2021,06/03/2021,11/10/2020,10/20 ZOKS-QIU-ZMG 06/27/2023,04/24/2023,02/22/2023 Hepatitis A (Adult) 08/24/2023,02/22/2023 Hepatitis B (Adult) 08/24/2023,04/24/2023,2022 Influenza A (H1N1), Inactivated 07/14/2009 Influenza Virus, Unspecified 05/27/2015, 05/06/2013,06/06/2011,06/10 Influenza, High-dose Inactivated 05/30/2024,06/04,06/02/2016 Influenza, High-dose Quadriv alent Inactivated 06/27/2023,06/15/2021 Influenza, IIV3 (Age 6-35 mos) 05/13/2013 Influenza, IIV3 (Age >=3 years) 06/18/2012 Influenza, IIV4 05/26/2014,07/14/2009 Influenza, IIV4 (=>6mos) MDV 05/23/2017 Influenza, Inactivated AIIV4 (Age 65+ Years) Preserv Free 09/28/2022,05/26/2022 Influenza, Inactivated IIV3 (Age 65+ Years) Preserv Free 06/15/2021,05/30/2019 MENINGOCOCCAL VACCINE (MENQU ADFI 0.5ML) 2YO+ POLYSACCHARIDE PF 04/24/2023,02/22/2023 Pneumococcal Conj 20-valent (Prevnar 20) 02/22/2023 Pneumococcal Poly,23-Valent (Pneumovax) 07/06/2018,02/28/2012 Pneumococcal conj 13-Valent (Prevnar 13) 05/24/2016 RSV, Recombinant ADJ Reconst ituted (Arexvy 120MCG/0.5mL) 07/11/2023 Recombivax Hb (dialysis) 08/24/2023,04/24/2023,0 02/22/2023 TD, UNSPECIFIED 09/04/1997 Td (Age >=7 Years) 09/04/1997 Td, Preservative Free (age >= 7 Years) 7 Tdap 09/04/2006 Zoster (Shingrix-RZV, recombinant) 04/24,02/22/2023,03/13/2019,01/03 Zoster (Zostavax-ZVL, live) 09/29/2015 Family History Medical History Relation Name Comments Cancer Father abdominal Other Father renal failure, post traumatic Heart Disease Mother at 50--bone dden Hypertension Mother kidney disease Stroke Mother Cancer-prostate Neg. 1 Cancer-colon Neg. 2 Diabetes Neg. 3 Anesthesia Problem Neg. 4 Heart Disease Sister 3 CABG at 63 Stroke Sister 4 at 48; hig h risk lifestyle Relation Name Status Comments Father Mother Neg. 1 Neg. 2 Neg. 3 Neg. 4 Sister 1 (Age 48) stroke Sister 2 Alive Sister 3 Sister 4 Social History Tobacco Use Types Packs/Day Years Used Date Smoking Tobacco: Former Cigarettes 2 24 0 09/04/1966 - 09/04/1990 Smokeless Tobacco: Never Tobacco Cessation:Counseling Given: Yes Comments:Quit smoking at age 41 after smoking 2 ppd for 24 years. Alcohol Use Standard Drinks/Week Comments Not Currently 0 (1 standard drink = 0.6 oz pur e alcohol) once a year PHQ-2 Answer Date Recorded PHQ-2 TOTAL SCORE 1 05/02/2024 Social Connections Answer Date Recorded Do you often feel lonely or isolated from those around you? 0 05/02/2024 Financial Resource Strain Answer Date R ecorded Difficulty of Paying Living Expenses 3 07/10/2023 Difficulty of Paying Living Expenses Not on file 07/10/2023 Food Insecurity Answer Date Recorded Do you worry your food will run out before you are able to buy more? 1 05/02/2024 Transportation Needs Answer Date Record ed Does lack of transportation keep you from medica l appointments? 1 05/02/2024 Does lack of transportation keep you from work, meetings or getting things that you need? 1 05/02/2024 Housing Stability Answer Date Recorded What is your housing situation today? 1 05/02/2024 Utilities Answer Date Recorded Do you have trouble paying f or utilities (for example, heat, electricity, water, phone)? 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 on file Not on file Not on file Obstetrics History Last Filed Vital Signs Vital Sign Reading Time Taken Comments Blood Pressure 138/84 03/24/2025 10:58 AM CDT Pulse 66 03/24/2025 10:58 AM CDT Temperature 36.6 C (97.9 F) 09/22/2022 9:49 AM SOCIAL WORK LECTURER Respiratory Rate 16 03/06/2025 9:58 AM CDT Oxygen Saturation 99% 03/24/2025 10:58 AM CDT Inhaled Oxygen Concentration - - Weight 100.7 kg (222 lb) 03/06/2025 9:58 AM CDT Height 165.1 cm (5' 5) 03/06/2025 9:58 AM CDT Body Mass Index 36.94 03/06/2025 9:58 AM CDT Plan of Treatment Health Maintenance Due Date Last Done Comments COVID-19 vaccine series ( season) 2025 01/22/2025, 05/30/2024, 06/27/2023, Additional history exists Depression screening for age 12+ 05/02/2025 05/02/2024, 02/08/2023, 02/07/2023, Additional history exists Medicare Wellness for age 65+ 05/03/2025, 02/07/2023, 10/21/2021, Additional history exists Influenza Vaccine (#1) 2025 , 09/28/2022, 05/26/2022, Additional history exists BMI (ht and wt on same day) for age 18+ 03/06/2026 03/06/2025, 08/15/2024, 05/02/2024, Additional history exists Tetanus booster 04/20/2027 04/20/2017, 09/2006, 09/04/1997, Additional history exists Lipids for age 45-75 01/04/2029 01/05/2024, 07/25/2023, 12/21/2022, Additional history exists Colonoscopy through age 75 06/17/202906/17, 05/31/2021, 04/11/2020, Additional history exists Hepatitis C screening for ag e 18-79 Completed 04/20/2017 AAA screening age 65-74 Completed 04/10/2020 Pneumococcal series for age 50+ Completed 02/22/2023, 07/06/2018, 05/24/2016, Additional history exists Zoster (shingles) series for age 50+ Completed 04/24/2023, 02/22/2023, 03/13/2019, Additional history exists RSV vaccine for adults or Completed 07/11/2023 Hepatitis B series for 19+ Completed 08/24, 04/24/2023, 02/22/2023 Goals Goal Patient Goal Type Associated Problems Recent Progress Patient-Stated? Author BLOOD PRESSURE-MA INTAINS BP LESS THAN 130/80 Blood Pressure No Shannan Laboy, RN, MAIL PROCESSING ASSOCIATE Procedures Procedure Name Priority Date/Time Associated Diagnosis Comments US VENOUS LOWER EXTREMITY RIGHT STAT 03/24/2025 12:09 PM CDT Right thigh pain SCAN-DIAGNOSTIC REPORT 02/19/2025 12:00 AM CDT SCAN-DIAGNOSTIC REPORT 02/19/2025 12:00 AM CDT PLATELET COUNT Routine 01/06/2025 8:37 AM CDT Pre-op evaluation HEMOGLOBIN Routine 01/06/2025 8:37 AM CDT Pre-op evaluation POTASSIUM Routine 01/06/2025 8:37 AM CDT Pre-op evaluation SCAN-COLONOSCOPY 06/17/2024 12:0 0 AM CDT LIPID PANEL W REFLEX MEASURED LDL Routine 01/05/2024 9:06 AM CDT Coronary artery disease, unspecified vessel or lesion type, unspecified whether angina present, unspecified whether chefornak or transplanted heart Familial hypercholesterolemia (FH) w LDL - 198 off statins. Extremely high Lpa - 229 (NL<30) in [address] CT ABDOMEN PELVIS WWO Routine 04/10/2020 10:15 PM CDT ANTI HCV Routine 04/20/2017 4:43 PM CDT Need for hepatitis C screening test from Last 3 Months or Most Recently Relevant to Health Maintenance Results * US VENOUS LOWER EXTREMITY RIGHT (03/24/2025 12:09 PM CDT) Anatomical Region Laterality Modality LEGS, LEG R, Abdomen Ultrasound 03/24/2025 12:1 5 PM CDT Impressions 03/24/2025 12:15 PM CDT Normal right lower extremity venous ultrasound, no sign of deep venous thrombosis. Dictated by Chandler Martinez MD @ 03/24/2025 12:15:44 PM (Electronically Signed) Narrative 03/24/2025 12:15 PM CDT For Patients: As a result of the Cures Act, medical imaging exams and procedure reports are released immediately into your electronic medical record. You may view this report before your referring provider. If you have questions, please contact your health care provider. INDICATION: Right thigh pain TECHNIQUE: Ultrasound venous duplex lower right extremity. Compression venous exam was performed using weldon-scale, color Doppler, and spectral Doppler imaging. COMPARISON: None. FINDINGS: Sonographic imaging demonstrates the right common femoral, deep femoral, superficial femoral, popliteal, posterior tibial and greater saphenous and the contralateral left common femoral veins to be fully compressible with normal color Doppler blood flow. Procedure Note Chandler Martinez MD - 03/24/2025 For Patients: As a result of the Cures Act, medical imagingexams and procedure reports are released immediately into your electronicmedical record. You may view this report before your referring provider.If you have questions, please contact your health care provider. INDICATION: Right thigh pain TECHNIQUE: Ultrasound venous duplex lower right extremity. Compression venous examwas performed using weldon-scale, color Doppler, and spectral Dopplerimaging. COMPARISON: None. FINDINGS: Sonographic imaging demonstrates the right common femoral, deep femoral,superficial femoral, popliteal, posterior tibial and greater saphenous andthe contralateral left common femoral veins to be fully compressible withnormal color Doppler blood flow. IMPRESSION: Normal right lower extremity venous ultrasound, no sign of deep venousthrombosis. Dictated by Chandler Martinez MD @ 03/24/2025 12:15:44 PM (Electronically Signed) us Dacia Harrison DO US Final Result * SCAN-DIAGNOSTIC REPORT (02/19/2025 12:00 AM CDT) us Scanner OTHER Final Result * SCAN-DIAGNOSTIC REPORT (02/19/2025 12:00 AM CDT) us Scanner OTHER Final Result * PLATELET COUNT (01/06/2025 8:37 AM CDT) PLATELET COUNT 175 140 - 400 Thousand/u L [facility] Blood BLOOD SPECIMEN / Unknown 01/06/2025 8:37 AM CDT 01/06/2025 8:37 AM CDT us Dcaia Harrison DO HEMATOLOGY Final Result [employer] [facility] [address] [place] [address], [facility] [address] [place] [address] * HEMOGLOBIN (01/06/2025 8:37 AM CDT) HEMOGLOBIN 15.6 13.2 - 17.1 g/dL [facility] Blood BLOOD SPECIMEN / Unknown 01/06/2025 8:37 AM CDT 01/06/2025 8:37 AM CDT us Adei Williamqra DO HEMATOLOGY Final Result [employer] [facility] [address] [place] [address], [place] [phone] [facility] [address] [place] [address] * POTASSIUM (01/06/2025 8:37 AM CDT) Pathologist [facility] POTASSIUM 3.8 3.5 - 5.3 mmol/L [facility] Blood BLOOD SPECIMEN / Unknown 01/06/2025 8:37 AM CDT 01/06/2025 8:37 AM CDT Adeleslie Harrison DO CHEMISTRY Final Result Performing Organization Address City/[facility]/ZIP Co de Phone Number [employer] [facility] [address] [place] [address], [place] [phone] [facility] [address] [place] [address] * SCAN-COLONOSCOPY (06/17/2024 12:00 AM CDT) us Scanner OTHER Final Result * (ABNORMAL) LIPID PANEL W REFLEX MEASURED LDL (01/05/2024 9:06 AM CDT) CHOLESTEROL,TOTAL 140 100 - 199 mg/dL 01/05/2024 6:00 PM CDT [facility] Comment: Cholesterol, Total Reference Ranges Desirable <200 mg/dL Borderline 200-239 mg/dL High >=240 mg/dL TRIGLYCERIDES 242(H) <150 mg/dL 01/05/2024 6:00 PM CDT [facility] HDL CHOLESTEROL 52 >40 mg/dL 6:00 PM CDT [facility] NON-HDL CHOLESTEROL 88 <145 mg/dl 01/05/2024 6:00 PM CDT [facility] CHOL/HDL RATIO 2.69 <4.50 01/05/2024 6:00 PM CDT [facility] LDL CHOLESTEROL 40 <=130 mg/dL 01/05/2024 6:00 PM CDT [facility] VLDL CHOLESTEROL 48(H) <=30 mg/dL 01/05/2024 6:00 PM CDT [facility] PROVIDER ORDERED STATUS FASTING 01/05/2024 6:00 PM CDT [facility] Blood BLOOD SPECIMEN / Unknown Venipuncture / Unknown 01/05/2024 9:06 AM CDT 01/05/2024 9:06 AM CDT us Mae Gilbert NP CHEMISTRY Final Result Performing Organization Address City/State/[facility] Co de Phone Number [facility] [address] [address], [place] * CT ABDOMEN PELVIS WWO (04/10/2020 10:15 PM CDT) Anatomical Region Laterality Modality Abdomen, Pelvis, AORTA, LIVER, SPLEEN Computed Tomography 04/11/2020 12:2 6 AM CDT Narrative 04/11/2020 12:26 AM CDT INDICATION: Possible lower GI bleed with negative colonoscopy TECHNIQUE: CT abdomen and pelvis acquired without and with 100 cc Omnipaque 350 IV contrast. Arterial and venous phase imaging of the abdomen and pelvis was obtained. COMPARISON: None FINDINGS: Lower chest: Unremarkable. Liver: Unremarkable. Spleen: Unremarkable. Pancreas: Unremarkable. Gallbladder and bile ducts: Unremarkable. Adrenal glands: Unremarkable. Kidneys: 3 mm nonobstructing right renal stone. Simple cyst on the left kidney. GI tract: Colonic diverticulosis. Arterial phase imaging demonstrates hyperdensity within a diverticulum within the proximal descending colon on image 142 series 3. The hyperdensity was not present on the noncontrast exam. Vascular structures: Mild atherosclerotic disease. Lymph nodes: Unremarkable. Miscellaneous: Unremarkable. No free air or significant free fluid. Pelvic Organs: Unremarkable. Bones: Unremarkable for age. IMPRESSION: Focal hyperdensity on arterial phase imaging within a diverticulum in the proximal descending colon concerning for site of GI bleed. Nonobstructive right nephrolithiasis. Findings discussed with Dr. Phelps at 12:26 a.m. on April 11, 2020. Please note that all CT scans at this facility use dose modulation, iterative reconstruction, and/or weight-based dosing when appropriate to reduce radiation dose to as low as reasonably achievable. Dictated by Martine Ambriz MD @ Apr 10 2020 11:48PM (Electronically Signed) Procedure Note Martine Ambriz MD - 04/11/2020 INDICATION: Possible lower GI bleed with negative colonoscopy TECHNIQUE: CT abdomen and pelvis acquired without and with 100 cc Omnipaque 350 IVcontrast. Arterial and venous phase imaging of the abdomen and pelvis wasobtained. COMPARISON: None FINDINGS: Lower chest: Unremarkable. Liver: Unremarkable. Spleen: Unremarkable. Pancreas: Unremarkable. Gallbladder and bile ducts: Unremarkable. Adrenal glands: Unremarkable. Kidneys: 3 mm nonobstructing right renal stone. Simple cyst on the leftkidney. GI tract: Colonic diverticulosis. Arterial phase imaging demonstrateshyperdensity within a diverticulum within the proximal descending colon onimage 142 series 3. The hyperdensity was not present on the noncontrastexam. Vascular structures: Mild atherosclerotic disease. Lymph nodes: Unremarkable. Miscellaneous: Unremarkable. No free air or significant free fluid. Pelvic Organs: Unremarkable. Bones: Unremarkable for age. IMPRESSION: Focal hyperdensity on arterial phase imaging within a diverticulum in theproximal descending colon concerning for site of GI bleed. Nonobstructive right nephrolithiasis. Findings discussed with Dr. Phelps at 12:26 a.m. on April 11, 2020. Please note that all CT scans at this facility use dose modulation,iterative reconstruction, and/or weight-based dosing when appropriate toreduce radiation dose to as low as reasonably achievable. Dictated by Martine Ambriz MD @ Apr 10 2020 11:48PM (Electronically Signed) us Luis Phelps MD CT Final Resul t * ANTI HCV [[id number]] (04/20/2017 4:43 PM CDT) HEPATITIS C ANTIBODY Non-Reacti ve Non-Reacti ve 04/21/2017 2:59 PM CDT [facility] Blood BLOOD SPECIMEN / Unknown Venipuncture / Unknown 04/20/2017 4:43 PM CDT 04/20/2017 4:43 PM CDT Narrative [facility] - 04/21/2017 2:59 PM CDT Antibodies to HCV not detected; does not exclude the possibility of exposure to HCV. us Anson Haro MD SEND OUTS Final Result [facility] 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 Healthcare Directive 06/21/2016 8:53 AM * Full Code (Latest Code Status on File) Date Activated Date Inactivated Comments 02/07/2022 11:04 AM 02/07/2022 5:47 PM Question Answer Comments Code Status Discussion: Unable to Assess Preferences, Provider to review later * Full Code Date Activated Date Inactivated Comments 04/10/2020 8:24 PM 04/14/2020 2:39 PM * Full Code Date Activated Date Inactivated Comments 10/12/2015 8:48 AM 10/12/2015 7:45 PM * Full Code Date Activated Date Inactivated Comments 05/21/2011 8:11 AM 05/22/2011 2:26 PM * Full Code Date Activated Date Inactivated Comments 04/20/2011 11:11 AM 04/21/2011 4:37 PM 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
--- NOTE | 2025-03-30 04:53 | CRLHL7_ITS ---
For Patients: As a result of the Century Cures Act, medical imaging exams and procedure reports are released immediately into your electronic medical record. You may view this report before your referring provider. If you have questions, please contact your health care provider. INDICATION: Weakness and hypoxia. TECHNIQUE: Chest 1 views. COMPARISON: 03/24/2022. FINDINGS: Cardiovasculature and mediastinum: Heart size is normal. Unremarkable mediastinum. Lungs and pleural spaces: Lungs are clear. No sign of infiltrate or mass. No sign of pleural effusion. No pneumothorax. Bones and soft tissues: No significant findings. IMPRESSION: Negative chest. Dictated by Dalton Luis MD @ 03/30/2025 5:43:27 AM (Electronically Signed)
[2025-03-30] MEDS: 0.9 % SODIUM CHLORIDE 500 ML 500 ML IV (05:10)
[2025-03-30 05:18] LABS: HCO3 VBG 24 mmol/L (21-28); Lactate Sepsis w/Reflex* 1.7 mmol/L (0.5-1.9); PCO2 VBG 33 mmHG (40-50); PO2 VBG 33.6 mmHG (25-47); pH VBG 7.464 (7.32-7.43)
[2025-03-30 05:19] LABS: Hematocrit 41.0 % (37.0-53.0); Hemoglobin* 13.7 gm/dL (13.5-17.5); Immature Granulocytes Abs Auto 0.02 K/uL (0.00-0.30); Immature Granulocytes Pct Auto 0.3 %; Mean Corpuscular HGB Conc 33 gm/dL (32-36); Mean Corpuscular Hemoglobin 34 pg (26-34); Mean Corpuscular Volume 100 fL (80-100); RDW Coefficient of Variation % 14.1 % (11.5-15.5); Red Blood Count 4.09 m/uL (4.30-5.90); White Blood Count* 5.84 K/uL (4.50-11.00)
--- NOTE | 2025-03-30 05:19 | ED.GENADULT ---
HPI - General Adult General Chief complaint: Fall/Minor Trauma Stated complaint: fall Time Seen by Provider: 03/30/25 04:52 Source: patient, family and EMS Mode of arrival: EMS Limitations: no limitations History of Present Illness HPI narrative: 75-year-old male presents to the emergency department by EMS with generalized weakness. Patient has had URI symptoms for the past 3 days. Started having some vague body aches yesterday. No trauma or injury. No specific fall. He reports that he had the urge to get up to go to the bathroom overnight and when he did, his legs buckled underneath him, he became too weak and slid to the floor. He called his for assistance to called 911. Did not hit his head, no loss of consciousness. He denies any localizing symptoms of infection. There has been no abdominal pain, no dysuria, he has no open sores on his legs. No headache, neck stiffness. EMS did note fever upon arrival. No obvious exposures to any ill persons or specific illness, no international travel. Does not have any indwelling lines for Concepcion. No history of sepsis but he does have a history of multiple myeloma, in remission. Nonsmoker. No recent surgical procedure. No prior history of intra-abdominal surgeries. Does have a notable history of coronary artery disease, stent placed 14 years ago, no recent chest pain or feeling of palpitations. Noted to require assistance for pivot transfer by nursing team in triage. Denies prior similar symptoms. Reports that he uses a cane at baseline. Past medical history notable as above for coronary artery disease, hyperlipidemia, treated hypertension, multiple myeloma in remission. Home medications accurate as listed per patient. ROS is notable for the generalized symptoms as above, otherwise denies times 12 systems. Related Data Home Medications ?Medication ?Instructions ?Recorded ?Confirmed albuterol 90 mcg/actuation aerosol 2 spray inhalation Q4H PRN 03/07/22 02/24/25 inhaler cholecalciferol (vitamin D3) 100 100 mcg PO QDAY 03/07/22 02/24/25 mcg (4,000 unit) tablet hydrochlorothiazide 25 mg tablet 25 mg PO QAM 03/07/22 02/24/25 tiotropium bromide 18 mcg capsule 1 cap inhalation DAILY 03/07/22 02/24/25 with inhalation device acetaminophen 500 mg tablet 1,000 mg PO BID PRN 03/08/22 02/24/25 (Tylenol Extra Strength) aspirin 81 mg tablet,delayed 81 mg PO QDAY 11/10/22 02/24/25 release nitroglycerin 0.4 mg sublingual 0.4 mg sublingual Q5M PRN 11/10/22 02/24/25 tablet vitamin B complex 1 tab PO QDAY 11/10/22 02/24/25 alirocumab 150 mg/mL subcutaneous 150 mg subcut Q14D 06/07/23 02/24/25 pen injector melatonin 3 mg capsule 3 mg PO QHS 06/07/23 02/24/25 multivitamin 1 tab PO QAM 06/07/23 02/24/25 escitalopram oxalate 20 mg tablet 20 mg PO QAM 06/12/24 02/24/25 cyclobenzaprine 10 mg tablet 10 mg PO Q8H PRN 11/25/24 02/24/25 gabapentin 300 mg capsule 300 mg PO BID 02/24/25 02/24/25 losartan 25 mg tablet 25 mg PO DAILY 02/24/25 02/24/25 pregabalin 25 mg capsule 25 mg PO BID PRN 02/24/25 02/24/25 celecoxib 200 mg capsule 200 mg PO 3XD 03/28/25 03/28/25 Previous Rx's ?Medication ?Instructions ?Recorded lenalidomide 5 mg capsule 5 mg PO .qod #11 caps 03/27/24 colestipol 1 gram tablet 1 g PO DAILY #90 tabs 07/22/24 azithromycin 250 mg tablet See Rx Instructions PO .COMPLEX #6 03/30/25 tabs Allergies Allergy/AdvReac Type Severity Reaction Status Date / Time clopidogrel Allergy Mild Hives Verified 03/30/25 04:51 ezetimibe Allergy Verified 03/28/25 10:06 gemfibrozil Allergy Verified 03/28/25 10:06 [id number] Reductase Allergy Verified 03/28/25 10:06 Inhibitor [facility] Medical History 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) Pancytopenia ?D61.818 - Other pancytopenia (ICD-10) Multiple myeloma in remission ?C90.01 - Multiple myeloma in remission (ICD-10) Pain ?R52 - Pain, unspecified (ICD-10) Right arm pain ?M79.601 - Pain in right arm (ICD-10) Cellulitis, abdominal wall ?L03.311 - Cellulitis of abdominal wall (ICD-10) Hematuria ?R31.9 - Hematuria, unspecified (ICD-10) Statin intolerance (12/05/18) ?Z78.9 - Other specified health status (ICD-10) Personal history of colonic polyps (01/21/09) ?Z86.010 - Personal history of colonic polyps (ICD-10) Osteoarthritis ?M19.90 - Unspecified osteoarthritis, unspecified site (ICD-10) Obstructive sleep apnea syndrome ?G47.33 - Obstructive sleep apnea (adult) (pediatric) (ICD-10) Obesity with body mass index (BMI) of 30.0 to 39.9 ?E66.9 - Obesity, unspecified (ICD-10) Lower gastrointestinal hemorrhage ?K92.2 - Gastrointestinal hemorrhage, unspecified (ICD-10) Infected sebaceous cyst ?L72.3 - Sebaceous cyst (ICD-10) ?L08.9 - Local infection of the skin and subcutaneous tissue, unspecified (ICD-10) Hypertension ?I10 - Essential (primary) hypertension (ICD-10) Hyperlipidemia ?E78.5 - Hyperlipidemia, unspecified (ICD-10) Diverticulosis of large intestine with hemorrhage ?K57.31 - Diverticulosis of large intestine without perforation or abscess with bleeding (ICD-10) Coronary artery disease ?I25.10 - Atherosclerotic heart disease of [place] coronary artery without angina pectoris (ICD-10) Chronic obstructive pulmonary disease ?J44.9 - Chronic obstructive pulmonary disease, unspecified (ICD-10) Cellulitis ?L03.90 - Cellulitis, unspecified (ICD-10) Bright red blood per rectum ?K62.5 - Hemorrhage of anus and rectum (ICD-10) Multiple myeloma ?C90.00 - Multiple myeloma not having achieved remission (ICD-10) Plasma cell neoplasm ?D49.89 - Neoplasm of unspecified behavior of other specified sites (ICD-10) Surgical History H/O heart artery stent ?Z95.5 - Presence of coronary angioplasty implant and graft (ICD-10) History of arthroplasty of finger of left hand (08/02/12) ?Z96.692 - Finger-joint replacement of left hand (ICD-10) Status post total right knee replacement (07/01/13) ?Z96.651 - Presence of right artificial knee joint (ICD-10) Status post total left knee replacement (11/11/13) ?Z96.652 - Presence of left artificial knee joint (ICD-10) 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) ?Z96.611 - Presence of right artificial shoulder joint (ICD-10) History of carpal tunnel surgery of right wrist (08/13/18) ?Z98.890 - Other specified postprocedural states (ICD-10) Status post total shoulder replacement (06/06/16) ?Z96.619 - Presence of unspecified artificial shoulder joint (ICD-10) Social History Highest level of school completed/degree received: high school graduate Smoking Status: Former smoker Do you use any of these nicotine containing products: None Second hand tobacco smoke exposure: No How often do you have a drink containing alcohol: never AUDIT-C Alcohol total score: 0 Non-prescribed substance use: denies use Caffeine: Yes (diet coke) service: No Exam Const: Vital Signs, click to edit/add: Vital Signs - 24 hr 03/30/25 04:34 03/30/25 04:57 03/30/25 05:33 Temperature 99.0 F Pulse Rate 59 L Pulse Rate [Right Pulse Oximeter] 72 Respiratory Rate 24 20 Blood Pressure 99/56 L Blood Pressure [Le ft Upper Arm] 126/63 Pulse Oximetry 91 88 91 Oxygen Delivery Me thod Room Air 03/30/25 05:34 03/30/25 05:45 03/30/25 06:00 Temperature Pulse Rate 61 59 L 59 L Pulse Rate [Right Pulse Oximeter] Respiratory Rate 18 Blood Pressure Blood Pressure [Le ft Upper Arm] Pulse Oximetry 94 91 93 Oxygen Delivery Me thod 03/30/25 06:02 03/30/25 06:15 03/30/25 06:31 Temperature Pulse Rate 63 65 77 Pulse Rate [Right Pulse Oximeter] Respiratory Rate 21 20 Blood Pressure 107/70 Blood Pressure [Le ft Upper Arm] Pulse Oximetry 87 L 88 89 Oxygen Delivery Me thod Documenting provider has reviewed patient's vital signs: yes Common normals: no apparent distress General appearance: cooperative and well kempt HENMT: Common normals: normocephalic, moist oral mucous membranes and oropharynx normal Head and scalp: normocephalic Face and sinus: normal facial exam Mouth: oral and palatal mucosa normal Eye: Common normals: conjunctivae normal General eye: normal appearance of both eyes Conjunctiva: conjunctiva(e) normal Neck & C-Spine: Common normals: full ROM and no lymphadenopathy General: normal visual inspection Resp: Common normals: normal respiratory effort and no use of accessory muscles Effort & inspection: able to speak in complete sentences Other: Slight rhonchi right posterior lower lung sellers Cardio: Common normals: regular rate, regular rhythm, S1 normal heart sound, S2 normal heart sound and no murmurs Rate: regular rate Rhythm: regular rhythm Heart sounds: S1 normal and S2 normal GI: Common normals: Normal to inspection, nondistended, normoactive bowel sounds present, soft to palpation, non-tender, no hepatosplenomegaly and no masses Palpation: soft and no hepatosplenomegaly Back & Pelvis: Common normals: thoracic and lumbar spine normal to inspection Extremity: Other: Surgical scarring consistent with prior knee replacements. No redness or warmth to any of the joints. Left side of lower leg has some chronic muscle wasting due to known foot drop, present for 3 years due to low back problems. Unchanged. No pitting edema. Neuro: Other: Chronic left footdrop with some mild muscle wasting but does appear to have no new focal neurological deficits. Good truncal support, good strength in upper extremities. Psych: Common normals: speech normal Appearance: well kempt Attitude: engaged Activity/motor behavior: appropriate eye contact Speech: normal speech Mood and affect: euthymic mood Insight: insight good Judgement: judgment good Skin: Common normals: no rashes or lesions noted General skin exam: no rashes or lesions noted Course Course ED Course: [age] for old male with URI and generalized weakness. Differential diagnosis including sepsis, pneumonia, UTI, blood infection, viral process, intra-abdominal infection, electrolyte abnormality, dehydration, cardiac process, amongst many others. Will placed on nuclear monitoring technician, obtain EKG, blood cultures, urine analysis and culture. Viral swab, chest x-ray, typical labs. Will give 500 normal saline. No initial signs of hypotension or tachycardia that would indicate sepsis. Reevaluation(s) Time of Reevaluation #1: 07:12 Reevaluation #1: Counseled patient on findings. Urinalysis reassuring, remainder of labs show only a borderline sodium level, does take hydrochlorothiazide. Patient passed his ?road test? with the nursing team and both patient and his say that they would feel comfortable taking him home. With patient's history of multiple myeloma and immunosuppressant use, I do not think that he could easily fight off the bronchitis causing his cough as well as someone with a typical immune system and do recommend azithromycin. Counseled that we will culture his urine and blood but there are no obvious signs of sepsis or severe urine infection that would warrant more dramatic impaired treatment. Discussed that his symptoms should start to improve in about 48 hours on the medication but if he has severe weakness, severe shortness of breath or other interval worsening, he should be re-evaluated. I would like from to make a follow-up appointment with his primary care doctor in 2-3 days for recheck, to ensure that things are improving and to recheck his salt levels. Ghassan instructions outlining this and alarm symptoms were provided. All questions answered. Vital Signs Vital signs: Initial Vital Signs Temperature 99.0 F 03/30/25 04:34 Temperature Source Temporal Artery Scan 03/30/25 04:34 Pulse Rate 72 03/30/25 04:34 Respiratory Rate 24 03/30/25 04:34 Blood Pressure 126/63 03/30/25 04:34 Blood Pressure Mean 84 03/30/25 04:34 Blood Pressure Position Semi-Fowlers 03/30/25 04:34 Pulse Oximetry 91 03/30/25 04:34 Oxygen Delivery Method Room Air 03/30/25 04:34 Vital Signs Temperature 99.0 F 03/30/25 04:34 Pulse Rate 72 03/30/25 04:34 Respiratory Rate 24 03/30/25 04:34 Blood Pressure 126/63 03/30/25 04:34 Pulse Oximetry 91 03/30/25 04:34 Oxygen Delivery Method Room Air 03/30/25 04:34 Temperature 99.0 F 03/30/25 04:34 Pulse Rate 77 03/30/25 06:31 Respiratory Rate 20 03/30/25 06:15 Blood Pressure 107/70 03/30/25 06:02 Pulse Oximetry 89 03/30/25 06:31 Oxygen Delivery Method Room Air 03/30/25 04:34 Medications Administered Medications: Discontinued Medications Generic Name Dose Route Start Last Admin Trade Name Mike PRN Reason Stop Dose Admin Sodium Chloride 500 mls @ 500 mls/hr 03/30/25 04:54 03/30/25 05:10 0.9 % Sodium Chloride 500 Ml IV 03/30/25 05:53 500 mls/hr .Q1H GENARO Administration Medical Decision Making Lab Data Lab results reviewed: Yes I reviewed the patient's lab results Lab results narrative: Labs are overall pretty reassuring. Sodium is borderline low, does take hydrochlorothiazide levels were normal a couple of weeks ago. CRP is mildly elevated. Urinalysis and viral swabs are reassuring. Platelets are stable for patient. Labs: Lab Results 03/30/25 03/30/25 03/30/25 Range/Units 04:32 05:06 05:10 WBC 5.84 (4.50-11.00) K/uL RBC 4.09 L (4.30-5.90) m/uL Hgb 13.7 (13.5-17.5) gm/dL Hct 41.0 (37.0-53.0) % MCV 100 (80-100) fL MCH 34 (26-34) pg MCHC 33 (32-36) gm/dL RDW Coeff of [place] 14.1 (11.5-15.5) % Plt Count 113 L (140-440) K/uL Neut % (Auto) 80.5 H (42.0-72.0) % Lymph % (Auto) 9.2 L (20-44) % [place] % (Auto) 9.8 (0.0-11.0) % Eos % (Auto) 0.0 (0.0-7.0) % Baso % (Auto) 0.2 (0.0-3.0) % Neut # (Auto) 4.70 (1.7-7.0) K/uL Lymph # (Auto) 0.50 L (0.90-2.90) K/uL [place] # (Auto) 0.60 (0.00-0.90) K/UL Eos # (Auto) 0.00 (0.00-0.50) K/uL Baso # (Auto) 0.01 (0.00-0.30) K/uL Abs Immat Gran (auto) 0.02 (0.00-0.30) K/uL Imm/Tot Granulo (auto) 0.3 % VBG pH 7.464 H (7.32-7.43) VBG pCO2 33 L (40-50) mmHG VBG pO2 33.6 (25-47) mmHG VBG HCO3 24 (21-28) mmol/L Sodium 129 L (135-149) mmol/L Potassium 3.4 L (3.6-5.1) mmol/L Chloride 98 (96-114) mmol/L Carbon Dioxide 24 (20-32) mmol/L Anion Gap 7 (7-15) mEq/L BUN 16 (7-30) mg/dL Creatinine 0.8 (0.5-1.5) mg/dL Estimated Creat Clear 56.38 Estimated GFR 93 ml/min Glucose 111 (60-115) mg/dL Lactate 1.7 (0.5-1.9) mmol/L Calcium 8.6 (8.4-10.6) mg/dL Total Bilirubin 0.9 (0.1-1.5) mg/dL AST 40 H (12-35) U/L ALT 37 (4-50) U/L Alkaline Phosphatase 67 (40-150) U/L Troponin I < 0.01 (0.01-0.04) ng/mL C-Reactive Protein 2.6 H (0.5-1.0) mg/dL NT-Pro-B Natriuret Pep 275 (See Note) pg/mL Total Protein 6.6 (6.0-8.3) g/dL Albumin 4.0 (3.3-5.0) g/dL Procalcitonin 0.18 (<0.50) ng/mL Urine Color (Yellow) Urine Appearance (Clear) Urine pH (5.0-8.5) Ur Specific [place] (1.000-1.030) Urine Protein (Negative) Urine Glucose (UA) (Negative) Urine Ketones (Negative) Urine Blood (Negative) Urine Nitrite (Negative) Urine Bilirubin (Negative) Urine Urobilinogen (0.2-1.0) Ur Leukocyte Esterase (Negative) Urine RBC (0-2) Urine WBC (0-5) Ur Squamous Epith Cells (None-Few) Urine Bacteria (None) SARS-CoV-2 (PCR) Negative SARS-CoV-2 (Negative) Influenza Type A (PCR) Negative PCR FLU A (Negative) Influenza Type B (PCR) Negative PCR FLU B (Negative) RSV (PCR) Negative PCR RSV (Negative) POC Troponin I 0.00 L (0.01-0.04) ng/ml 03/30/25 Range/Units 06:27 WBC (4.50-11.00) K/uL RBC (4.30-5.90) m/uL Hgb (13.5-17.5) gm/dL Hct (37.0-53.0) % MCV (80-100) fL MCH (26-34) pg MCHC (32-36) gm/dL RDW Coeff of [place] (11.5-15.5) % Plt Count (140-440) K/uL Neut % (Auto) (42.0-72.0) % Lymph % (Auto) (20-44) % [place] % (Auto) (0.0-11.0) % Eos % (Auto) (0.0-7.0) % Baso % (Auto) (0.0-3.0) % Neut # (Auto) (1.7-7.0) K/uL Lymph # (Auto) (0.90-2.90) K/uL [place] # (Auto) (0.00-0.90) K/UL Eos # (Auto) (0.00-0.50) K/uL Baso # (Auto) (0.00-0.30) K/uL Abs Immat Gran (auto) (0.00-0.30) K/uL Imm/Tot Granulo (auto) % VBG pH (7.32-7.43) VBG pCO2 (40-50) mmHG VBG pO2 (25-47) mmHG VBG HCO3 (21-28) mmol/L Sodium (135-149) mmol/L Potassium (3.6-5.1) mmol/L Chloride (96-114) mmol/L Carbon Dioxide (20-32) mmol/L Anion Gap (7-15) mEq/L BUN (7-30) mg/dL Creatinine (0.5-1.5) mg/dL Estimated Creat Clear Estimated GFR ml/min Glucose (60-115) mg/dL Lactate (0.5-1.9) mmol/L Calcium (8.4-10.6) mg/dL Total Bilirubin (0.1-1.5) mg/dL AST (12-35) U/L ALT (4-50) U/L Alkaline Phosphatase (40-150) U/L Troponin I (0.01-0.04) ng/mL C-Reactive Protein (0.5-1.0) mg/dL NT-Pro-B Natriuret Pep (See Note) pg/mL Total Protein (6.0-8.3) g/dL Albumin (3.3-5.0) g/dL Procalcitonin (<0.50) ng/mL Urine Color Yellow (Yellow) Urine Appearance Clear (Clear) Urine pH 5.5 (5.0-8.5) Ur Specific [place] 1.010 (1.000-1.030) Urine Protein Negative (Negative) Urine Glucose (UA) Negative (Negative) Urine Ketones Negative (Negative) Urine Blood 1+ A (Negative) Urine Nitrite Negative (Negative) Urine Bilirubin Negative (Negative) Urine Urobilinogen 0.2 (0.2-1.0) Ur Leukocyte Esterase Negative (Negative) Urine RBC 2-5 A (0-2) Urine WBC 0-2 (0-5) Ur Squamous Epith Cells Few (None-Few) Urine Bacteria None (None) SARS-CoV-2 (PCR) (Negative) Influenza Type A (PCR) (Negative) Influenza Type B (PCR) (Negative) RSV (PCR) (Negative) POC Troponin I (0.01-0.04) ng/ml Imaging Data Chest x-ray: Attestation: I have reviewed the pertinent imaging results. My impression: No effusions, infiltrates or significant cardiomegaly. Normal chest x-ray Radiologist's impression: IMPRESSION: Negative chest. Dictated by Dalton Luis MD @ 03/30/2025 5:43:27 AM (Electronically Signed) Discharge Plan Discharge Clinical Impression: Acute bronchitis, Generalized muscle weakness Patient Disposition: Home w/ Parent or Adult Condition: Stable Instructions: Acute Bronchitis (ED) Additional Instructions: As we discussed, I think that your illness is caused by a bronchitis. With your immunosuppressants and history of multiple myeloma, you may not be as able to fight this off as someone with a normal immune system. Because of this, I do recommend that we treat you with an antibiotic. I have started you on azithromycin. He received your 1st dose here in the emergency department today. 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 You will take 2 pills on Monday morning and then continue on 1 pill daily Monday through Monday. Please use your walker for the next few days until you start to feel stronger. Your salt levels are borderline low but I think this is just caused by your mild illness. I would like for you to follow-up with your primary care provider in 2-3 days to see how things are going and make sure that you are improving. I would like for them to recheck your salt levels to make sure that things continue to improve as expected. It is okay to use Tylenol and/or ibuprofen for low-grade fever and body aches. We will culture your blood and urine, if this grows bacteria unexpectedly, you will receive a call to come back to the ER for IV antibiotics and may require hospitalization, depending on the findings. In the meantime, if you become severely ill, please return to the emergency department. Activity Level: Activity as Tolerated and Use Walker Discharge Diet: Regular Prescriptions: New azithromycin 250 mg tablet See Rx Instructions .ROUTE .COMPLEX Qty: 6 0RF Rx Instructions: For 250 mg dose pack: take 500 mg today (day 1), then 250 mg for 4 days (days 2-5) No Action aspirin 81 mg tablet,delayed release (DR/EC) 81 mg PO QDAY nitroglycerin 0.4 mg tablet, sublingual 0.4 mg sublingual Q5M PRN Rx Instructions: do not exceed 3 doses per episode vitamin B complex Tablet 1 tab PO QDAY multivitamin Tablet 1 tab PO QAM melatonin 3 mg capsule 3 mg PO QHS alirocumab 150 mg/mL pen injector 150 mg subcut Q14D losartan 25 mg tablet 25 mg PO DAILY gabapentin 300 mg capsule 300 mg PO BID pregabalin 25 mg capsule 25 mg PO BID PRN tiotropium bromide 18 mcg capsule, w/inhalation device 1 cap inhalation DAILY albuterol 90 mcg/actuation aerosol 2 spray inhalation Q4H PRN hydrochlorothiazide 25 mg tablet 25 mg PO QAM cholecalciferol (vitamin D3) 100 mcg (4,000 unit) tablet 100 mcg PO QDAY acetaminophen [Tylenol Extra Strength] 500 mg tablet 1,000 mg PO BID PRN lenalidomide 5 mg capsule 5 mg PO .qod Qty: 11 3RF Rx Instructions: Take 1 capsule every other day, for a maximum of 11 doses in a month. Swallow whole with glass of water; do not open, crush, chew , break, or dissolve escitalopram oxalate 20 mg tablet 20 mg PO QAM cyclobenzaprine 10 mg tablet 10 mg PO Q8H PRN celecoxib 200 mg capsule 200 mg PO 3XD colestipol 1 gram tablet 1 g PO DAILY Qty: 90 1RF Follow Up/Referrals: NIKHIL DARLING DO [Primary Care Provider, Family Practice] Stand Alone Forms: [facility] Info Instructions Procedures ABG Interpretation ABG Results: 03/30/25 05:06 VBG pH 7.464 H VBG pCO2 33 L VBG pO2 33.6 VBG HCO3 24
[2025-03-30 05:20] LABS: PCR FLU A Negative PCR FLU A (Negative); PCR FLU B Negative PCR FLU B (Negative); PCR RSV Negative PCR RSV (Negative); SARS PCR* Negative SARS-CoV-2 (Negative)
[2025-03-30 05:25] LABS: Troponin, Point-of-Care* 0.00 ng/ml (0.01-0.04)
[2025-03-30 05:29] LABS: Lymphocytes Absolute Auto 0.50 K/uL (0.90-2.90); Slide Review Reflex No
[2025-03-30 05:33] LABS: Albumin* 4.0 g/dL (3.3-5.0); Chloride* 98 mmol/L (96-114); Potassium* 3.4 mmol/L (3.6-5.1); Sodium* 129 mmol/L (135-149)
[2025-03-30 05:35] LABS: Alanine Aminotransferase* 37 U/L (4-50); Aspartate Amino Transferase* 40 U/L (12-35); Blood Urea Nitrogen* 16 mg/dL (7-30); Creatinine* 0.8 mg/dL (0.5-1.5); Est. Creatinine Clearance* 56.38; Estimated Glomerular Filt Rate 93 ml/min
[2025-03-30 05:36] LABS: Alkaline Phosphatase* 67 U/L (40-150); Anion Gap 7 mEq/L (7-15); Bilirubin Total* 0.9 mg/dL (0.1-1.5); Calcium* 8.6 mg/dL (8.4-10.6); Carbon Dioxide* 24 mmol/L (20-32); Glucose* 111 mg/dL (60-115); Total Protein* 6.6 g/dL (6.0-8.3)
[2025-03-30 05:53] LABS: Procalcitonin* 0.18 ng/mL (<0.50)
[2025-03-30 05:54] LABS: NT Pro B Type NatriureticPept* 275 pg/mL (See Note)
[2025-03-30 06:55] LABS: Appearance Urine Clear (Clear)
[2025-03-30] MEDS: AZITHROMYCIN 250 MG TABLET 500 MG PO (07:42)
== END 2025-03-30 07:55 | disposition home or self-care (01) ==
PROVIDERS: Emergency Provider Family Medicine; PCP Student in an Organized Health Care Education/Training Program
DX: J20.9 Acute bronchitis, unspecified (principal); R53.1 Weakness
CPT/HCPCS: 36415; 71045; 80053; 81001; 82803; 83605; 83880; 84145; 84484; 85025; 86140; 87040; 87086; 87631; 93005; 94761; 99284; A9270; J7030

== ENCOUNTER 2025-05-21 10:00 | Outpatient (RCR) | payer MEDICARE, OTHER, SELFPAY ==
[2024-12-23 10:30] LABS: Hematocrit 43.8 % (37.0-53.0); Hemoglobin* 14.8 gm/dL (13.5-17.5); Immature Granulocytes Abs Auto 0.01 K/uL (0.00-0.30); Immature Granulocytes Pct Auto 0.2 %; Lymphocytes Absolute Auto 1.35 K/uL (0.90-2.90); Mean Corpuscular HGB Conc 34 gm/dL (32-36); Mean Corpuscular Hemoglobin 33 pg (26-34); Mean Corpuscular Volume 99 fL (80-100); RDW Coefficient of Variation % 13.4 % (11.5-15.5); Red Blood Count 4.43 m/uL (4.30-5.90); White Blood Count* 5.07 K/uL (4.50-11.00)
[2024-12-23 10:33] LABS: Slide Review Reflex No
[2024-12-23 10:39] LABS: Albumin* 4.3 g/dL (3.3-5.0); Chloride* 106 mmol/L (96-114); Potassium* 4.3 mmol/L (3.6-5.1); Sodium* 137 mmol/L (135-149)
[2024-12-23 10:41] LABS: Alanine Aminotransferase* 32 U/L (4-50); Anion Gap 11 mEq/L (7-15); Aspartate Amino Transferase* 35 U/L (12-35); Blood Urea Nitrogen* 20 mg/dL (7-30); Carbon Dioxide* 20 mmol/L (20-32); Creatinine* 0.7 mg/dL (0.5-1.5); Est. Creatinine Clearance* 55.09; Estimated Glomerular Filt Rate 97 ml/min
[2024-12-23 10:42] LABS: Alkaline Phosphatase* 53 U/L (40-150); Bilirubin Total* 1.1 mg/dL (0.1-1.5); Calcium* 9.2 mg/dL (8.4-10.6); Glucose* 81 mg/dL (60-115); Total Protein* 6.6 g/dL (6.0-8.3)
--- NOTE | 2024-12-23 11:38 | ONC.NURNOTE ---
Lab results noted, including bili trend called to Bran's to Dr Sy to review starting Rev today or tomorrow
[2024-12-30 10:07] VITALS: BP 141/75; PULSE 62; RESP 21; TEMP 35.9; O2SAT 92
[2024-12-30] MEDS: ZOLEDRONIC ACID 4 MG in 0.9 % SODIUM CHLORIDE 100 ml 100 ML 400 MG IVPB (10:34)
[2025-01-20 10:20] LABS: Hematocrit 43.6 % (37.0-53.0); Hemoglobin* 14.7 gm/dL (13.5-17.5); Immature Granulocytes Pct Auto 0.2 %; Mean Corpuscular HGB Conc 34 gm/dL (32-36); Mean Corpuscular Hemoglobin 34 pg (26-34); Mean Corpuscular Volume 100 fL (80-100); RDW Coefficient of Variation % 13.3 % (11.5-15.5); Red Blood Count 4.38 m/uL (4.30-5.90); White Blood Count* 4.17 K/uL (4.50-11.00)
[2025-01-20 10:30] LABS: Albumin* 4.3 g/dL (3.3-5.0); Chloride* 104 mmol/L (96-114)
[2025-01-20 10:31] LABS: Potassium* 4.1 mmol/L (3.6-5.1); Sodium* 138 mmol/L (135-149)
[2025-01-20 10:32] LABS: Immature Granulocytes Abs Auto 0.00 K/uL (0.00-0.30); Lymphocytes Absolute Auto 1.20 K/uL (0.90-2.90); Slide Review Reflex No
[2025-01-20 10:33] LABS: Blood Urea Nitrogen* 19 mg/dL (7-30); Creatinine* 0.8 mg/dL (0.5-1.5); Est. Creatinine Clearance* 55.09; Estimated Glomerular Filt Rate 93 ml/min
[2025-01-20 10:34] LABS: Alanine Aminotransferase* 39 U/L (4-50); Alkaline Phosphatase* 55 U/L (40-150); Anion Gap 7 mEq/L (7-15); Aspartate Amino Transferase* 40 U/L (12-35); Bilirubin Total* 0.8 mg/dL (0.1-1.5); Calcium* 9.2 mg/dL (8.4-10.6); Carbon Dioxide* 27 mmol/L (20-32); Glucose* 85 mg/dL (60-115); Total Protein* 6.9 g/dL (6.0-8.3)
[2025-02-17 10:20] LABS: Hematocrit 44.1 % (37.0-53.0); Hemoglobin* 14.7 gm/dL (13.5-17.5); Immature Granulocytes Pct Auto 0.3 %; Mean Corpuscular HGB Conc 33 gm/dL (32-36); Mean Corpuscular Hemoglobin 33 pg (26-34); Mean Corpuscular Volume 99 fL (80-100); RDW Coefficient of Variation % 13.9 % (11.5-15.5); Red Blood Count 4.44 m/uL (4.30-5.90); White Blood Count* 3.98 K/uL (4.50-11.00)
[2025-02-17 10:32] LABS: Immature Granulocytes Abs Auto 0.00 K/uL (0.00-0.30); Lymphocytes Absolute Auto 1.10 K/uL (0.90-2.90); Slide Review Reflex No
[2025-02-17 10:38] LABS: Albumin* 4.1 g/dL (3.3-5.0); Chloride* 103 mmol/L (96-114); Sodium* 136 mmol/L (135-149)
[2025-02-17 10:39] LABS: Potassium* 4.2 mmol/L (3.6-5.1)
[2025-02-17 10:41] LABS: Alanine Aminotransferase* 36 U/L (4-50); Alkaline Phosphatase* 64 U/L (40-150); Anion Gap 9 mEq/L (7-15); Aspartate Amino Transferase* 39 U/L (12-35); Bilirubin Total* 0.8 mg/dL (0.1-1.5); Blood Urea Nitrogen* 17 mg/dL (7-30); Calcium* 9.3 mg/dL (8.4-10.6); Carbon Dioxide* 24 mmol/L (20-32); Creatinine* 0.7 mg/dL (0.5-1.5); Est. Creatinine Clearance* 54.27; Estimated Glomerular Filt Rate 97 ml/min; Glucose* 89 mg/dL (60-115); Total Protein* 6.8 g/dL (6.0-8.3)
--- NOTE | 2025-02-17 11:42 | ONC.NURNOTE ---
lab results called to patient as stable D1 lenalidomide today
[2025-02-19 13:37] LABS: Albumin 3.96 g/dL (3.75-5.01); Immunoglobulin A 71 mg/dL (68-408); Immunoglobulin G 738 mg/dL (768-1632); Immunoglobulin M 45 mg/dL (35-263)
--- NOTE | 2025-02-24 13:30 | ONC.NURNOTE ---
Diagnosis Verifecation Form completed by technical proposal writer and signed by Dr Sy for prescription funding from the [employer] faxed to [phone]
[2025-03-17 09:35] LABS: Hematocrit 43.9 % (37.0-53.0); Hemoglobin* 14.9 gm/dL (13.5-17.5); Immature Granulocytes Pct Auto 0.2 %; Mean Corpuscular HGB Conc 34 gm/dL (32-36); Mean Corpuscular Hemoglobin 34 pg (26-34); Mean Corpuscular Volume 99 fL (80-100); RDW Coefficient of Variation % 13.7 % (11.5-15.5); Red Blood Count 4.42 m/uL (4.30-5.90); White Blood Count* 4.26 K/uL (4.50-11.00)
[2025-03-17 09:36] LABS: Immature Granulocytes Abs Auto 0.00 K/uL (0.00-0.30); Lymphocytes Absolute Auto 1.20 K/uL (0.90-2.90); Slide Review Reflex No
[2025-03-17 10:30] LABS: Chloride* 108 mmol/L (96-114)
[2025-03-17 10:31] LABS: Albumin* 4.2 g/dL (3.3-5.0); Potassium* 4.2 mmol/L (3.6-5.1); Sodium* 137 mmol/L (135-149)
[2025-03-17 10:33] LABS: Blood Urea Nitrogen* 16 mg/dL (7-30); Creatinine* 0.7 mg/dL (0.5-1.5); Est. Creatinine Clearance* 54.27; Estimated Glomerular Filt Rate 97 ml/min
[2025-03-17 10:34] LABS: Alanine Aminotransferase* 35 U/L (4-50); Alkaline Phosphatase* 65 U/L (40-150); Anion Gap 7 mEq/L (7-15); Aspartate Amino Transferase* 38 U/L (12-35); Bilirubin Total* 0.8 mg/dL (0.1-1.5); Calcium* 9.2 mg/dL (8.4-10.6); Carbon Dioxide* 22 mmol/L (20-32); Glucose* 96 mg/dL (60-115); Total Protein* 6.8 g/dL (6.0-8.3)
--- NOTE | 2025-03-17 13:13 | ONC.NURNOTE ---
Labs reviewed by typewriter repairer and called to Bran's - within parameters to start next cycle of lenalidomide
[2025-03-28 10:10] VITALS: BP 129/65; PULSE 61; RESP 16; TEMP 36.1; O2SAT 94
[2025-03-28] MEDS: ZOLEDRONIC ACID 4 MG in 0.9 % SODIUM CHLORIDE 100 ml 100 ML 400 MG IVPB (10:30)
[2025-04-16 10:52] LABS: Hematocrit 44.0 % (37.0-53.0); Hemoglobin* 14.6 gm/dL (13.5-17.5); Immature Granulocytes Pct Auto 0.2 %; Mean Corpuscular HGB Conc 33 gm/dL (32-36); Mean Corpuscular Hemoglobin 33 pg (26-34); Mean Corpuscular Volume 99 fL (80-100); RDW Coefficient of Variation % 14.1 % (11.5-15.5); Red Blood Count 4.43 m/uL (4.30-5.90); White Blood Count* 4.44 K/uL (4.50-11.00)
[2025-04-16 10:56] LABS: Immature Granulocytes Abs Auto 0.00 K/uL (0.00-0.30); Lymphocytes Absolute Auto 1.10 K/uL (0.90-2.90); Slide Review Reflex No
[2025-04-16 11:34] LABS: Albumin* 4.2 g/dL (3.3-5.0); Chloride* 104 mmol/L (96-114); Potassium* 4.4 mmol/L (3.6-5.1); Sodium* 137 mmol/L (135-149)
[2025-04-16 11:36] LABS: Blood Urea Nitrogen* 19 mg/dL (7-30); Creatinine* 0.8 mg/dL (0.5-1.5); Est. Creatinine Clearance* 54.27; Estimated Glomerular Filt Rate 93 ml/min
[2025-04-16 11:37] LABS: Alanine Aminotransferase* 30 U/L (4-50); Alkaline Phosphatase* 59 U/L (40-150); Anion Gap 7 mEq/L (7-15); Aspartate Amino Transferase* 37 U/L (12-35); Bilirubin Total* 0.8 mg/dL (0.1-1.5); Calcium* 9.9 mg/dL (8.4-10.6); Carbon Dioxide* 26 mmol/L (20-32); Glucose* 84 mg/dL (60-115); Total Protein* 6.9 g/dL (6.0-8.3)
[2025-05-14 10:31] LABS: Hematocrit 45.6 % (37.0-53.0); Hemoglobin* 15.4 gm/dL (13.5-17.5); Immature Granulocytes Pct Auto 0.2 %; Mean Corpuscular HGB Conc 34 gm/dL (32-36); Mean Corpuscular Hemoglobin 33 pg (26-34); Mean Corpuscular Volume 98 fL (80-100); RDW Coefficient of Variation % 13.9 % (11.5-15.5); Red Blood Count 4.65 m/uL (4.30-5.90); White Blood Count* 4.43 K/uL (4.50-11.00)
[2025-05-14 10:36] LABS: Immature Granulocytes Abs Auto 0.00 K/uL (0.00-0.30); Lymphocytes Absolute Auto 1.30 K/uL (0.90-2.90); Slide Review Reflex No
[2025-05-14 10:51] LABS: Albumin* 4.3 g/dL (3.3-5.0); Chloride* 105 mmol/L (96-114); Sodium* 138 mmol/L (135-149)
[2025-05-14 10:52] LABS: Potassium* 3.7 mmol/L (3.6-5.1)
[2025-05-14 10:54] LABS: Alanine Aminotransferase* 40 U/L (4-50); Anion Gap 8 mEq/L (7-15); Aspartate Amino Transferase* 47 U/L (12-35); Blood Urea Nitrogen* 14 mg/dL (7-30); Carbon Dioxide* 25 mmol/L (20-32); Creatinine* 0.8 mg/dL (0.5-1.5); Est. Creatinine Clearance* 54.27; Estimated Glomerular Filt Rate 93 ml/min
[2025-05-14 10:55] LABS: Alkaline Phosphatase* 62 U/L (40-150); Bilirubin Total* 0.9 mg/dL (0.1-1.5); Calcium* 9.4 mg/dL (8.4-10.6); Glucose* 93 mg/dL (60-115); Total Protein* 7.0 g/dL (6.0-8.3)
--- NOTE | 2025-05-14 14:03 | ONC.NURNOTE ---
lab results called to Bran- with in parameters to start Revlimid patient interested in starting zepbound Dr Sy aware has an appt next week
[2025-05-16 23:12] LABS: Albumin 4.19 g/dL (3.75-5.01); Immunoglobulin A 89 mg/dL (68-408); Immunoglobulin G 833 mg/dL (768-1632); Immunoglobulin M 65 mg/dL (35-263)
== END 2025-06-01 23:59 | disposition home or self-care (01) ==
LOC: CCIC 10:00
PROVIDERS: PCP Student in an Organized Health Care Education/Training Program; Referring Provider Student in an Organized Health Care Education/Training Program; Visit Provider Internal Medicine Hematology & Oncology
DX: C90.00 Multiple myeloma not having achieved remission (principal); D61.810 Antineoplastic chemotherapy induced pancytopenia; D49.89 Neoplasm of unspecified behavior of other specified sites; T45.1X5A Adverse effect of antineoplastic and immunosuppressive drugs, initial encounter; R78.89 Finding of other specified substances, not normally found in blood; Z79.83 Long term (current) use of bisphosphonates; Z79.82 Long term (current) use of aspirin
CPT/HCPCS: 36415; 80053; 82784; 83520; 84155; 84165; 85025; 86334; 96365; 96374; 99214; 99215; G0463; J3489